=== PATIENT | male | born 1950 | race Caucasian/White ===

== ENCOUNTER 2016-11-01 17:13 | Observation (INO) | payer MEDICARE, OTHER ==
[~2016-11-01] VITALS: Ht 175.3 cm; Wt 97.5 kg
[~2016-11-01 17:13] MED LIST: CARV12.52 PO; CEPH500C3 PO; CYCL1PAK PO; DIGO0.25 PO; FOLI1 PO; FURO20TA PO; HYDR200T42 PO; HYOS0.1251 PO; KLOR20TA6 PO; LORA-474 PO; METH2.5 PO; OXYC5 PO; PROT40TA PO; WARF-20 PO; [UNRECOGNIZED DRUG - OTHER]
[2016-11-01 17:15] VITALS: BP 110/72; PULSE 110; RESP 16; TEMP 98.1; O2SAT 97
--- NOTE | 2016-11-01 17:40 | PD ---
HPI Chief Complaint: Cardiac Complaint Time Seen by Provider: 17:40 Travel History International Travel<30 days: No Contact w/Intl Traveler<30days: No Traveled to known affect area: No History of Present Illness HPI 66 YO M with PMH of CAD, CO, status post defibrillator placement and arthritis presents to the ED for evaluation after his AICD fired multiple times over the last 3 days. The patient denies any episodes of tachycardia, palpitations, shortness of breath, dyspnea on exertion, dizziness, nausea, vomiting, weakness. He states that he's been having a flare of his arthritis but is otherwise been feeling normal. He is followed by Dr. Dukes, cardiology. Dr. Arreaga, PCP [facility] Past Medical History Arthritis: Yes Asthma: No Blood Disorders: No Anxiety: No Depression: No Heart Rhythm Problems: Yes Cancer: No Cardiovascular Problems: Yes (CAD) High Cholesterol: No Chemotherapy: No Chest Pain: Yes Congestive Heart Failure: Yes COPD: Yes Diabetes: No Diminished Hearing: No Endocrine: No Gastrointestinal Disorders: Yes (GASTRISTIS, GERD) GERD: Yes Glaucoma: No Genitourinary: No Hepatitis: Yes (VIRAL) Hiatal Hernia: Yes Hypertension: Yes Immune Disorder: No Implanted Vascular Access Dvce: Yes Musculoskeletal: Yes Neurologic: No Psychiatric: No Reproductive: No Respiratory: Yes Integumentary: No Immunizations Current: Yes Myocardial Infarction: Yes (1998) Radiation Therapy: No Sleep Apnea: No Thyroid Disease: No Ulcer: Yes Past Surgical History Abdominal Surgery: No AICD: Yes (GUIDANT) Arteriovenous Shunt: No Body Medical Devices: STENT Cardiac Surgery: Yes (PACER ([employer] [id number]) , 2 STENTS) Ear Surgery: No Endocrine Surgery: No Eye Surgery: No Genitourinary Surgery: No Gynecologic Surgery: No Insulin Pump: No Joint Replacement: Yes (R HIP) Oral Surgery: No Pacemaker: Yes Thoracic Surgery: No Tonsillectomy: Yes Other Surgery: Yes (MULTI MUSCULOSKELETAL SURGERIES) Social History Alcohol Use: Yes (OCCASIONAL) Tobacco Use: No Substance Use: No Allergies-Medications (Allergen,Severity, Reaction): Coded Allergies: No Known Allergies (Verified , 11/01/16) Reported Meds & Prescriptions Reported Meds & Active Scripts Active Reported Voltaren (Diclofenac Sodium) 1 % Gel..gram. 1 Applic TOPICAL DAILY PRN Ativan (Lorazepam) 1 Mg Tab 1 Mg PO HS PRN Flexeril (Cyclobenzaprine HCl) 10 Mg Tab 10 Mg PO TID Oxycodone (Oxycodone HCl) 30 Mg Tab 30 Mg PO Q4HR PRN Toprol XL (Metoprolol Succinate) 50 Mg Tab 50 Mg PO DAILY Cymbalta DR (Duloxetine HCl) 60 Mg Capdr 60 Mg PO DAILY Lasix (Furosemide) 80 Mg Tab 80 Mg PO DAILY PRN Jantoven (Warfarin) 4 Mg Tab 4 Mg PO SUTUTHSA Take 1 tablet (4mg) daily on Monday,Monday, and Monday Jantoven (Warfarin) 2 Mg Tab 2 Mg PO MOWEFR Take 1 tablet (2mg) daily on Monday,Monday and Monday Losartan (Losartan Potassium) 25 Mg Tab 25 Mg PO DAILY Sulfasalazine 500 Mg Tab 500 Mg PO Q8H Zantac (Ranitidine HCl) 150 Mg Tab 150 Mg PO BID Plaquenil (Hydroxychloroquine Sulfate) 200 Mg Tab 200 Mg PO BID Take with food Prednisone 10 Mg Tab 10 Mg PO BID Prevacid (Lansoprazole) 30 Mg Capdr 30 Mg PO DAILY Methotrexate 2.5 Mg Tab 25 Mg PO WEEKLY Klor-Con M20 (Potassium Chloride Microencaps) 20 Meq Tab 20 Meq PO DAILY Folic Acid 1 Mg Tablet 1 Mg PO SUMOWE Take 1 tablet (1mg) daily on Monday,Monday,Monday,,Monday and Monday Lanoxin (Digoxin) 125 Mcg Tablet 125 Mcg PO DAILY Aspirin Adult Low Strength (Aspirin) 81 Mg Tabdr 81 Mg PO DAILY Review of Systems Except as stated in HPI: all other systems reviewed are Neg Physical Exam Narrative GENERAL: Well-nourished, well-developed white male in no acute distress. SKIN: Focused skin assessment warm/dry. HEAD: Normocephalic. EYES: No scleral icterus. No injection or drainage. NECK: Supple, trachea midline. No JVD or lymphadenopathy. CARDIOVASCULAR: Regular rate and rhythm without murmurs, gallops, or rubs. RESPIRATORY: Breath sounds clear and equal bilaterally. No accessory muscle use. GASTROINTESTINAL: Abdomen soft, non-tender, nondistended. Active bowel sounds. RECTAL EXAM: No masses or tenderness, stool is brown. Guaiac negative MUSCULOSKELETAL: No cyanosis, or edema. BACK: Nontender without obvious deformity. No CVA tenderness. Data Data Last Documented VS Vital Signs Date Time Temp Pulse Resp B/P (MAP) Pulse Ox O2 Delivery O2 Flow Rate FiO2 11/01/16 17:15 98.1 110 16 110/72 (85) 97 Orders Orders Electrocardiogram (11/01/16 17:38) Basic Metabolic Panel (Bmp) (11/01/16 17:38) Ckmb (Isoenzyme) Profile (11/01/16 17:38) Complete Blood Count With Diff (11/01/16 17:38) Magnesium (Mg) (11/01/16 17:38) Prothrombin Time / Inr (Pt) (11/01/16 17:38) Act Partial Throm Time (Ptt) (11/01/16 17:38) Troponin I (11/01/16 17:38) Chest, Single Ap (11/01/16 17:38) Ecg Monitoring (11/01/16 17:38) Bilateral Bp Monitoring (11/01/16 17:38) Iv Access Insert/Monitor (11/01/16 17:38) Oximetry (11/01/16 17:38) Sodium Chloride 0.9% Flush (Ns Flush) (11/01/16 17:45) Oxycodone-Acetamin 5-325 Mg (Percocet (11/01/16 18:30) Hepatic Functional Panel (11/01/16 20:05) Type And Screen (11/01/16 20:05) Consult Cardiology (11/01/16 ) Labs Laboratory Tests Test 11/01/16 18:37 White Blood Count 4.6 TH/MM3 Red Blood Count 2.61 MIL/MM3 Hemoglobin 7.7 GM/DL Hematocrit 23.1 % Mean Corpuscular Volume 88.6 FL Mean Corpuscular Hemoglobin 29.7 PG Mean Corpuscular Hemoglobin Concent 33.5 % Red Cell Distribution Width 17.9 % Platelet Count 236 TH/MM3 Mean Platelet Volume 7.8 FL Neutrophils (%) (Auto) 53.1 % Lymphocytes (%) (Auto) 33.0 % Monocytes (%) (Auto) 9.6 % Eosinophils (%) (Auto) 3.2 % Basophils (%) (Auto) 1.1 % Neutrophils # (Auto) 2.5 TH/MM3 Lymphocytes # (Auto) 1.5 TH/MM3 Monocytes # (Auto) 0.4 TH/MM3 Eosinophils # (Auto) 0.2 TH/MM3 Basophils # (Auto) 0.1 TH/MM3 CBC Comment DIFF FINAL Differential Comment Prothrombin Time 9.6 SEC Prothromb Time International Ratio 0.9 RATIO Activated Partial Thromboplast Time 24.3 SEC Blood Urea Nitrogen 29 MG/DL Creatinine 1.65 MG/DL Random Glucose 72 MG/DL Calcium Level 8.3 MG/DL Magnesium Level 1.9 MG/DL Sodium Level 143 MEQ/L Potassium Level 3.8 MEQ/L Chloride Level 112 MEQ/L Carbon Dioxide Level 23.3 MEQ/L Anion Gap 8 MEQ/L Estimat Glomerular Filtration Rate 42 ML/MIN Total Bilirubin 0.2 MG/DL Direct Bilirubin LESS THAN 0.1 MG/DL Indirect Bilirubin 0.1 MG/DL Aspartate Amino Transf (AST/SGOT) 43 U/L Alanine Aminotransferase (ALT/SGPT) 37 U/L Alkaline Phosphatase 183 U/L Total Creatine Kinase 88 U/L Troponin I 0.02 NG/ML Total Protein 5.6 GM/DL Albumin 1.9 GM/DL MDM Medical Decision Making Medical Screen Exam Complete: Yes Emergency Medical Condition: Yes Differential Diagnosis arrhythmia versus administrative medical director malfunction versus ACS versus other Narrative Course 66 YO M with PMH of CAD, CO, CHF, s/p defibrillator placement and arthritis ( patient is manager intermediate methotrexate user) presents to the ED for evaluation after his AICD fired multiple times over the last 3 days. The patient denies any episodes of tachycardia, palpitations, shortness of breath, dyspnea on exertion , dizziness, nausea, vomiting, weakness. He states that he's been having a flare of his arthritis but is otherwise been feeling normal. He is followed by Dr. Dukes, cardiology. Dr. Arreaga, PCP. Vitals reviewed. Physical exam is unremarkable. The device was interrogated by the [email or web address] rep. It a ppears the patient has had multiple episodes of V. fib with appropriate shocks. EKG rate 96, paced rhythm. No acute ST changes. Reviewed by Dr. Schuler. No evidence of cardiopulmonary disease on chest x-ray. Cardiac enzymes negative 1. Patient was found to be anemic with hemoglobin 7.7. Guaiac negative on rectal exam. Evidence of kidney injury with creatinine of 1.65. INR is subtherapeutic at 0.9. I spoke with the buckle and button maker on-call for Dr. Dukes. Dr. Dukes will see the patient tomorrow. I spoke with Dr. Card who agrees to accept the patient to the medicine service. Please see their notes for disposition. [facility] Point of Care Internal Pos. & Neg. Controls: Passed Fecal Specimen Occult Blood: Negative Mariann Armstrong Nov 01, 2016 17:40
[2016-11-01] MEDS ORDERED: SODIUM CHLORIDE 0.9% FLUSH 10 ML FLUSH IVF PRN (17:45)
--- NOTE | 2016-11-01 18:05 | RADRPT ---
EXAM DATE/TIME: 11/01/2016 17:52 [place] COMPARISON: No previous studies available for comparison. INDICATIONS : Chest pain. MEDICAL HISTORY : None. SURGICAL HISTORY : Pacemaker. ENCOUNTER: Initial ACUITY: 1 day PAIN SCORE: 0/10 LOCATION: Bilateral chest FINDINGS: No infiltrate, effusion or pneumothorax demonstrated. Heart size upper limits of normal. Left subclav jesús transvenous cardiac pacer/defibrillator noted. There are old right rib fractures. CONCLUSION: No evidence of acute cardiopulmonary disease. Reuben Childers MD on November 01, 2016 at 18:03 Board Certified Radiologist. This report was verified electronically.
[2016-11-01] MEDS ORDERED: LORA-474 PO (18:28)
[2016-11-01] MEDS ORDERED: VOLT1GEL4 TOPICAL (18:28)
[2016-11-01] MEDS ORDERED: POTA-245 PO (18:28)
[2016-11-01] MEDS ORDERED: SULF500T3 PO (18:28)
[2016-11-01] MEDS ORDERED: METH2.5T PO (18:28)
[2016-11-01] MEDS ORDERED: ASPI1TAB91 PO (18:28)
[2016-11-01] MEDS ORDERED: LOSA25TA PO (18:28)
[2016-11-01] MEDS ORDERED: LANO0.12 PO (18:28)
[2016-11-01] MEDS ORDERED: FOLI1TAB6 PO (18:28)
[2016-11-01] MEDS ORDERED: CYCL1TAB29 PO (18:28)
[2016-11-01] MEDS ORDERED: JANT4TAB PO (18:28)
[2016-11-01] MEDS ORDERED: TOPR50TA PO (18:28)
[2016-11-01] MEDS ORDERED: PLAQ200T PO (18:28)
[2016-11-01] MEDS ORDERED: ZANT150T2 PO (18:28)
[2016-11-01] MEDS ORDERED: CYMB60CA PO (18:28)
[2016-11-01] MEDS ORDERED: PREV30CA11 PO (18:28)
[2016-11-01] MEDS ORDERED: PRED10 PO (18:28)
[2016-11-01] MEDS ORDERED: FURO1TAB61 PO (18:28)
[2016-11-01] MEDS ORDERED: JANT2TAB PO (18:28)
[2016-11-01] MEDS ORDERED: OXYC30TA PO (18:28)
[2016-11-01] MEDS ORDERED: oxyCODONE/ACETAMINOPHEN 5 MG/325 MG TAB PO ONE (18:30)
[2016-11-01 19:18] LABS: AUTOMATED NEUTROPHIL # 2.5 TH/MM3 (1.8-7.7); BASOPHIL # 0.1 TH/MM3 (0-0.2); BASOPHIL % 1.1 % (0.0-2.0); EOSINOPHIL # 0.2 TH/MM3 (0-0.4); EOSINOPHIL % 3.2 % (0.0-4.0); HEMATOCRIT 23.1 % (39.0-51.0); HEMO FLAGS DIFF FINAL; LYMPHOCYTE # 1.5 TH/MM3 (1.0-4.8); MEAN CELL VOLUME 88.6 FL (80.0-100.0); MEAN CORPUSCULAR HEMOGLOBIN 29.7 PG (27.0-34.0); MEAN CORPUSCULAR HGB CONC 33.5 % (32.0-36.0); MONO % 9.6 % (0.0-8.0); NEUT % 53.1 % (16.0-70.0); PLATELET COUNT 236 TH/MM3 (150-450); RED BLOOD COUNT 2.61 MIL/MM3 (4.50-5.90); RED CELL DISTRIBUTION WIDTH 17.9 % (11.6-17.2); WHITE BLOOD COUNT 4.6 TH/MM3 (4.0-11.0)
[2016-11-01 19:24] LABS: APTT (PATIENT) 24.3 SEC (24.3-30.1); INTERNATIONAL NORMALIZED RATIO 0.9 RATIO; PROTHROMBIN TIME - PATIENT 9.6 SEC (9.8-11.6)
[2016-11-01 19:34] LABS: BICARBONATE 23.3 MEQ/L (21.0-32.0); MAGNESIUM 1.9 MG/DL (1.5-2.5); POTASSIUM 3.8 MEQ/L (3.5-5.1)
[2016-11-01 21:34] VITALS: BP 133/69; PULSE 70; O2SAT 98
[2016-11-01] MEDS ORDERED: SODIUM CHLOR 0.9% 1000 ML INJ 1,000 ML IV SCH (21:55)
[2016-11-01] MEDS ORDERED: ONDANSETRON HCL 4 MG/2 ML VIAL IVP PRN (22:00)
[2016-11-01] MEDS ORDERED: BISACODYL 10 MG SUPP RECTAL PRN (22:00)
[2016-11-01] MEDS ORDERED: NALOXONE HCL 0.4 MG/ML AMP IV PRN ×2 (22:00→22:45)
[2016-11-01] MEDS ORDERED: HEPARIN SODIUM - SQ 10,000 UNITS/ML VIAL SQ SCH (22:00)
[2016-11-01] MEDS ORDERED: MAGNESIUM HYDROXIDE SUSP 30 ML CUP PO PRN (22:00)
[2016-11-01] MEDS ORDERED: SENNOSIDES 8.6 MG TAB PO PRN (22:00)
[2016-11-01] MEDS ORDERED: LACTULOSE SYRUP 20 GM/30 ML CUP PO PRN (22:00)
[2016-11-01] MEDS ORDERED: SODIUM CHLORIDE 0.9% FLUSH 10 ML FLUSH IV FLUSH PRN ×2 (22:00→22:45)
[2016-11-01] MEDS ORDERED: ACETAMINOPHEN 325 MG TAB PO PRN ×2 (22:00)
[2016-11-01 22:11] VITALS: O2SAT 98
[2016-11-01 22:30] VITALS: BP 144/77; PULSE 74; O2SAT 98
[2016-11-01 22:38] LABS: ALT (GPT) 37 U/L (12-78); AST (GOT) 43 U/L (15-37)
[2016-11-01 22:40] LABS: ALKALINE PHOSPHATASE 183 U/L (45-117); INDIRECT BILIRUBIN 0.1 MG/DL (0.0-0.8); TOTAL BILIRUBIN ADULT 0.2 MG/DL (0.2-1.0)
[2016-11-02] VITALS (14 sets, daily range): BP systolic 99–128; BP diastolic 57–78; PULSE 58–92; RESP 16–20; TEMP 97.5–98.6; O2SAT 90–98
[2016-11-02] MEDS ORDERED: HYDROXYCHLOROQUINE SULFATE 200 MG TAB PO ONE (00:30)
[2016-11-02] MEDS ORDERED: predniSONE 10 MG TAB PO ONE (00:30)
[2016-11-02] MEDS ORDERED: LORazepam 1 MG TAB PO PRN (00:30)
[2016-11-02] MEDS ORDERED: CYCLOBENZAPRINE HCL 10 MG TAB PO ONE (00:30)
--- NOTE | 2016-11-02 01:28 | HHI.HP ---
HPI Service [facility] Primary Care Physician Serg Arreaga M.D. Admission Diagnosis anemia, CINTHIA, appropriate firing of AICD 2/2 V Fib Diagnoses: Chief Complaint: AICD firing Travel History International Travel<30 Days: No Contact w/Intl Traveler <30 Da: No Traveled to Known Affected Are: No History of Present Illness Written by HESHAM Shafer acting as scribe for [Kyaw] on 11/02/16 at 01: 18. 66 y/o male with a history of cardiac arrest, AICD/ pacemaker, CHF, HTN, Cardiac stents, Factor 5 Leiden deficiency, and RA presented to the ED after his AICD fired a total of 3 times. He states it fired prior to coming to the hospital and twice prior within the past 26 hours. He denies any chest pain, sob , or dizziness prior to to his AICD firing and/or after. AICD was interrogated in ED and multiple episodes of V Fib was shown. Evp Strategy: Dr. Dukes PCP: Dr. Arreaga in [place] Review of Systems Except as stated in HPI: all other systems reviewed are Neg Past Family Social History Past Medical History Cardiac arrest AICD CHF AFIB CT Factor 5 Leiden deficiency with 3 PEs at one time COPD Viral hepatitis 40 years ago Rheumatoid arthritis Past Surgical History AICD/Pacemaker Cardiac stents x 2 Bilateral shoulder repair Bilateral knee repair Hip replacement Reported Medications Reported Meds & Active Scripts Active Reported Voltaren (Diclofenac Sodium) 1 % Gel..gram. 1 Applic TOPICAL DAILY PRN Ativan (Lorazepam) 1 Mg Tab 1 Mg PO HS PRN Flexeril (Cyclobenzaprine HCl) 10 Mg Tab 10 Mg PO TID Oxycodone (Oxycodone HCl) 30 Mg Tab 30 Mg PO Q4HR PRN Toprol XL (Metoprolol Succinate) 50 Mg Tab 50 Mg PO DAILY Cymbalta DR (Duloxetine HCl) 60 Mg Capdr 60 Mg PO DAILY Lasix (Furosemide) 80 Mg Tab 80 Mg PO DAILY PRN Jantoven (Warfarin) 4 Mg Tab 4 Mg PO SUTUTHSA Take 1 tablet (4mg) daily on Monday,Monday, and Monday Jantoven (Warfarin) 2 Mg Tab 2 Mg PO WEFR Take 1 tablet (2mg) daily on Monday,Monday and Monday Losartan (Losartan Potassium) 25 Mg Tab 25 Mg PO DAILY Sulfasalazine 500 Mg Tab 500 Mg PO Q8H Zantac (Ranitidine HCl) 150 Mg Tab 150 Mg PO BID Plaquenil (Hydroxychloroquine Sulfate) 200 Mg Tab 200 Mg PO BID Take with food Prednisone 10 Mg Tab 10 Mg PO BID Prevacid (Lansoprazole) 30 Mg Capdr 30 Mg PO DAILY Methotrexate 2.5 Mg Tab 25 Mg PO WEEKLY Klor-Con M20 (Potassium Chloride Microencaps) 20 Meq Tab 20 Meq PO DAILY Folic Acid 1 Mg Tablet 1 Mg PO SUMOFRSA Take 1 tablet (1mg) daily on Monday,Monday,Monday,,Monday and Monday Lanoxin (Digoxin) 125 Mcg Tablet 125 Mcg PO DAILY Aspirin Adult Low Strength (Aspirin) 81 Mg Tabdr 81 Mg PO DAILY Allergies: Coded Allergies: No Known Allergies (Verified , 11/01/16) Active Ordered Medications Current Medications Medications (Trade) Dose Ordered Sig/[place] Route Start Time Stop Time Status Last Admin (NS Flush) 2 ml UNSCH PRN IV FLUSH 11/01/16 22:45 (NS Flush) 2 ml BID IV FLUSH 11/02/16 09:00 (Narcan Inj) 0.4 mg UNSCH PRN IV 11/01/16 22:45 (Flexeril) 10 mg TID PO 11/02/16 09:00 (Plaquenil) 200 mg BID PO 11/02/16 09:00 (Ativan) 1 mg HS PRN PO 11/02/16 00:30 11/02/16 00:59 (Deltasone) 10 mg BID PO 11/02/16 09:00 (Azulfidine) 500 mg Q8H PO 11/02/16 06:00 (Pepcid) 20 mg DAILY PO 11/02/16 09:00 (Roxicodone) 5 mg Q8H PRN PO 11/02/16 00:30 11/02/16 01:00 Family History Dad: Heart disease in his 80s Mom: CVA in her 80s Social History Tobacco use: Occasionally Alcohol use: Socially Illicit drug use: Denies Physical Exam Vital Signs Vital Signs Date Time Temp Pulse Resp B/P (MAP) Pulse Ox O2 Delivery O2 Flow Rate FiO2 11/02/16 00:48 97.9 68 18 128/70 (89) 96 11/01/16 22:36 Room Air 11/01/16 22:30 74 144/77 (99) 98 Room Air 11/01/16 22:11 98 11/01/16 21:34 70 133/69 (90) 98 Room Air 11/01/16 17:15 98.1 110 16 110/72 (85) 97 Physical Exam GENERAL: This is a well-nourished, well-developed patient, in no apparent distress. SKIN: No rashes, ecchymoses or lesions. Cool and dry. HEAD: Atraumatic. Normocephalic. EYES: Pupils equal round and reactive. ENT: Nose without bleeding, purulent drainage or septal hematoma. Airway patent. NECK: Trachea midline. No JVD or lymphadenopathy CARDIOVASCULAR: Regular rate and paced rhythm without murmurs, gallops, or rubs. AICD in place. RESPIRATORY: Clear to auscultation. Breath sounds equal bilaterally. No wheezes , rales, or rhonchi. GASTROINTESTINAL: Abdomen soft, non-tender, nondistended. MUSCULOSKELETAL: Extremities without clubbing, cyanosis, or edema. No calf tenderness. NEUROLOGICAL: Awake and alert. Motor and sensory grossly within normal limits. Normal speech. Laboratory Laboratory Tests Test 11/01/16 18:37 White Blood Count 4.6 Red Blood Count 2.61 Hemoglobin 7.7 Hematocrit 23.1 Mean Corpuscular Volume 88.6 Mean Corpuscular Hemoglobin 29.7 Mean Corpuscular Hemoglobin Concent 33.5 Red Cell Distribution Width 17.9 Platelet Count 236 Mean Platelet Volume 7.8 Neutrophils (%) (Auto) 53.1 Lymphocytes (%) (Auto) 33.0 Monocytes (%) (Auto) 9.6 Eosinophils (%) (Auto) 3.2 Basophils (%) (Auto) 1.1 Neutrophils # (Auto) 2.5 Lymphocytes # (Auto) 1.5 Monocytes # (Auto) 0.4 Eosinophils # (Auto) 0.2 Basophils # (Auto) 0.1 CBC Comment DIFF FINAL Differential Comment Prothrombin Time 9.6 Prothromb Time International Ratio 0.9 Activated Partial Thromboplast Time 24.3 Blood Urea Nitrogen 29 Creatinine 1.65 Random Glucose 72 Calcium Level 8.3 Magnesium Level 1.9 Sodium Level 143 Potassium Level 3.8 Chloride Level 112 Carbon Dioxide Level 23.3 Anion Gap 8 Estimat Glomerular Filtration Rate 42 Total Bilirubin 0.2 Direct Bilirubin LESS THAN 0.1 Indirect Bilirubin 0.1 Aspartate Amino Transf (AST/SGOT) 43 Alanine Aminotransferase (ALT/SGPT) 37 Alkaline Phosphatase 183 Total Creatine Kinase 88 Troponin I 0.02 Total Protein 5.6 Albumin 1.9 Result Diagram: 11/01/16183611/01/161836 Imaging Last Impressions Chest X-Ray 11/01/16 1738 Signed Impressions: Service Date/Time: Tuesday, November 01, 2016 17:52 - CONCLUSION: No evidence of acute cardiopulmonary disease. MD Mehreen Russo VTE Risk Assessment Mehreen VTE Risk Assessment: Mod/High Risk (score >= 2) Caprini Risk Assessment Model Point Value = 1 Point Value = 2 Point Value = 3 Point Value = 5 Age 41-60 Minor surgery BMI > 25 kg/m2 Swollen legs Varicose veins or History of unexplained or recurrent spontaneous Oral contraceptives or hormone replacement Sepsis (< 1 month) Serious lung disease, including pneumonia (< 1 month) Abnormal pulmonary function Acute myocardial infarction Congestive heart failure (< 1 month) History of inflammatory bowel disease Medical patient at bed rest Age 61-74 Arthroscopic surgery Major open surgery (> 45 min) Laparoscopic surgery (> 45 min) Malignancy Confined to bed (> 72 hours) Immobilizing plaster cast Central venous access Age >= 75 History of VTE Family history of VTE Factor V Leiden Prothrombin [id number] Lupus anticoagulant Anticardiolipin antibodies Elevated serum homocysteine Heparin-induced thrombocytopenia Other congenital or acquired thrombophilia Stroke (< 1 month) Elective arthroplasty Hip, pelvis, or leg fracture Acute spinal cord injury (< 1 month) Prophylaxis Regimen Total Risk Factor Score Risk Level Prophylaxis Regimen 0-1 Low Early ambulation 2 Moderate Order ONE of the following: *Sequential Compression Device (SCD) *Heparin 5000 units SQ BID 3-4 Higher Order ONE of the following medications: *Heparin 5000 units SQ TID *Enoxaparin/Lovenox 40 mg SQ daily (WT < 150 kg, CrCl > 30 mL/min) *Enoxaparin/Lovenox 30 mg SQ daily (WT < 150 kg, CrCl > 10-29 mL/min) *Enoxaparin/Lovenox 30 mg SQ BID (WT < 150 kg, CrCl > 30 mL/min) AND/OR *Sequential Compression Device (SCD) 5 or more Highest Order ONE of the following medications: *Heparin 5000 units SQ TID (Preferred with Epidurals) *Enoxaparin/Lovenox 40 mg SQ daily (WT < 150 kg, CrCl > 30 mL/min) *Enoxaparin/Lovenox 30 mg SQ daily (WT < 150 kg, CrCl > 10-29 mL/min) *Enoxaparin/Lovenox 30 mg SQ BID (WT < 150 kg, CrCl > 30 mL/min) AND *Sequential Compression Device (SCD) Assessment and Plan Problem List: (1) AICD discharge ICD Code: Z45.02 - Encounter for adjustment and management of automatic implantable cardiac defibrillator Status: Acute (2) Subtherapeutic anticoagulation ICD Code: Z51.81 - Encounter for therapeutic drug level monitoring; Z79.01 - terminologist (current) use of anticoagulants Status: Acute (3) CINTHIA (acute kidney injury) ICD Code: N17.9 - Acute kidney failure, unspecified Status: Acute (4) Anemia ICD Code: D64.9 - Anemia, unspecified Status: Chronic Assessment and Plan 66 y/o male with a history of cardiac arrest, AICD/ pacemaker, CHF, HTN, Cardiac stents, Factor 5 Leiden deficiency, and RA presented to the ED after his AICD fired a total of 3 times. AICD discharge, interrogated in ED found to have multiple episodes of V Fib EKG reviewed and shows a paced rhythm -Consult cardiology, Dr. Dukes, for further recommendation and treatment plan -Monitor Tele -Resume home medications digoxin, and metoprolol Anemia, suspect chronic due to RA medications, Hgb 7.7, last recorded 10.4 in 2013, guaiac stool negative in ED -Ordered recent lab work from Dr. Arreaga in [facility] for baseline labs -Trend H&H, will transfuse if needed -Iron panel and B12 ordered Acute kidney injury, creatine 1.6, unknown baseline, last recorded was .9 in 2013 -Trend creatine in AM -Hold IVF due to CHF history Subtherapeutic INR, INR .9 -Lovenox 90mg BID -Increase Coumadin to 5 mg Daily Rheumatoid arthritis, chronic: resume home medications prednisone, Plaquenil and sulfasalazine DVT prophylaxis: Lovenox This note was transcribed by zheng [Connie Thao]. I, Dr. Mohini Card personally performed the history, physical exam, and medical decision making; and confirmed the accuracy of the information in the transcribed note. Authenticated by Dr. Mohini Card on 11/02/16 at 01:18. Discussed Condition With Patient, ER HESHAM, nursing staff Connie Thao Nov 02, 2016 01:28 Mohini Card MD Nov 02, 2016 11:55
[2016-11-02] MEDS: FOLIC ACID 1 MG TAB PO SCH (03:29)
[2016-11-02] MEDS: ENOXAPARIN SODIUM 100 MG/ML SYRINGE SQ SCH ×2 (03:29→16:09)
[2016-11-02] MEDS: sulfaSALAzine 500 MG TAB PO SCH ×3 (06:08→21:20)
[2016-11-02] MEDS: ASPIRIN EC 81 MG TABEC PO SCH (08:50)
[2016-11-02] MEDS: DULoxetine HCl DR 60 MG CAP PO SCH (08:50)
[2016-11-02] MEDS: FAMOTIDINE 20 MG TAB PO SCH (08:50)
[2016-11-02] MEDS: HYDROXYCHLOROQUINE SULFATE 200 MG TAB PO SCH ×2 (08:50→20:30)
[2016-11-02] MEDS: CYCLOBENZAPRINE HCL 10 MG TAB PO SCH ×3 (08:50→18:53)
[2016-11-02] MEDS: predniSONE 10 MG TAB PO SCH ×2 (08:50→20:30)
[2016-11-02] MEDS: DIGOXIN 0.125 MG TAB PO SCH (08:51)
[2016-11-02] MEDS: METOPROLOL SUCCINATE 50 MG EXTENDED RELEASE TAB PO SCH (08:51)
[2016-11-02] MEDS ORDERED: SODIUM CHLORIDE 0.9% FLUSH 10 ML FLUSH IV FLUSH SCH (09:00)
[2016-11-02] MEDS: SODIUM CHLORIDE 0.9% FLUSH 10 ML FLUSH IV FLUSH SCH ×2 (09:45→20:30)
[2016-11-02] MEDS: LOSARTAN 25 MG TAB PO SCH (09:45)
--- NOTE | 2016-11-02 14:19 | HHI.PR ---
Subjective Remarks Follow-up for AICD discharge. Patient seen with RN and SO at bedside. The patient states he had AICD discharge yesterday at rest. He denies any chest pain or shortness of breath. He states that the plan is for cardiac catheterization tomorrow if anemia is improved. The patient feels well overnight and at this time and has no acute complaints. Objective Vitals Vital Signs Date Time Temp Pulse Resp B/P (MAP) Pulse Ox O2 Delivery O2 Flow Rate FiO2 11/02/16 13:22 98.0 78 16 119/78 (92) 97 11/02/16 07:34 97.7 63 16 117/65 (82) 95 11/02/16 07:26 93 21 11/02/16 04:25 97.5 66 20 111/62 (78) 96 11/02/16 01:53 20 11/02/16 00:49 72 11/02/16 00:48 97.9 68 18 128/70 (89) 96 11/01/16 22:36 Room Air 11/01/16 22:30 74 144/77 (99) 98 Room Air 11/01/16 22:11 98 11/01/16 21:34 70 133/69 (90) 98 Room Air 11/01/16 17:15 98.1 110 16 110/72 (85) 97 I/O 11/01/16 11/01/16 11/01/16 11/02/16 11/02/16 11/02/16 07:00 15:00 23:00 07:00 15:00 23:00 Intake Total 300 ml Output Total 450 ml Balance -150 ml Intake Oral 300 ml IV Total 0 ml Output Urine Total 450 ml Result Diagram: 11/01/167 11/01/161836 Imaging Last Impressions Chest X-Ray 11/01/16 1738 Signed Impressions: Service Date/Time: Tuesday, November 01, 2016 17:52 - CONCLUSION: No evidence of acute cardiopulmonary disease. Reuben Childers MD Objective Remarks GENERAL: Well-developed well-nourished. In no acute distress. SKIN: Warm and dry. No lesions noted. HEENT: Normocephalic. Pupils equal and round. Mucous membranes pink and moist. CARDIOVASCULAR: Regular rate and rhythm. No murmur appreciated. RESPIRATORY: No accessory muscle use. Clear to auscultation. Breath sounds equal bilaterally. GASTROINTESTINAL: Abdomen soft, non-tender, nondistended. Bowel sounds x4. MUSCULOSKELETAL: No obvious deformities. No clubbing or cyanosis. No edema. NEUROLOGICAL: Awake and alert. No focal neurological deficits. Moves upper and lower extremities spontaneously. Normal speech. PSYCHIATRIC: Appropriate mood and affect; insight and judgment normal. A/P Problem List: (1) AICD discharge ICD Code: Z45.02 - Encounter for adjustment and management of automatic implantable cardiac defibrillator Status: Acute (2) Subtherapeutic anticoagulation ICD Code: Z51.81 - Encounter for therapeutic drug level monitoring; Z79.01 - terminal system operator (current) use of anticoagulants Status: Acute (3) CINTHIA (acute kidney injury) ICD Code: N17.9 - Acute kidney failure, unspecified Status: Acute (4) Anemia ICD Code: D64.9 - Anemia, unspecified Status: Chronic Assessment and Plan 66 y/o male with a history of cardiac arrest, AICD/ pacemaker, CHF, HTN, Cardiac stents, Factor 5 Leiden deficiency, and RA presented to the ED after his AICD fired a total of 3 times. AICD discharge, interrogated in ED found to have multiple episodes of V Fib and defibrillated appropriately. EKG reviewed and shows ventricular paced rhythm -Consulted cardiology, Dr. Dukes, plans for cardiac catheterization if anemia is improved. -Monitor on Tele -Continue home digoxin and metoprolol Normocytic anemia: Possibly chronic due to RA medications. Hgb 7.7, previously 14.8 on 10/07/12. Stool negative for occult blood in the ED -Ordered recent lab work from Dr. Arreaga in [facility] for baseline labs -Repeat CBC. Trend H&H. will transfuse if needed -Iron panel and B12 ordered Acute kidney injury: Creatinine 1.65, previously 0.99 on 10/07/12. -Repeat BMP pending -Caution with IVF due to CHF history Subtherapeutic INR, INR .9 History of factor V Leyden deficiency -Lovenox 90mg BID -Coumadin increased to 5 mg Daily Rheumatoid arthritis, chronic: Continue home prednisone, Plaquenil, methotrexate , and sulfasalazine DVT prophylaxis: Lovenox/Coumadin Discharge Planning Follow-up cardiology recommendations. Gerhard Acosta Nov 02, 2016 14:19
[2016-11-02 15:32] LABS: ANION GAP 7 MEQ/L (5-15); BICARBONATE 23.4 MEQ/L (21.0-32.0); BLOOD UREA NITROGEN 22 MG/DL (7-18); CHLORIDE 110 MEQ/L (98-107); GLOMERULAR FILTRATION RATE 56 ML/MIN (>89); POTASSIUM 4.1 MEQ/L (3.5-5.1); SODIUM (NA) 140 MEQ/L (136-145)
[2016-11-02 15:58] LABS: DIGOXIN 0.5 NG/ML (0.8-2.0); FERRITIN 178 NG/ML (26-388); TRANSFERRIN IRON PROFILE 216 MG/DL (200-360)
[2016-11-02] MEDS ORDERED: WARFARIN SOD 5 MG TAB PO SCH (16:00)
[2016-11-02] MEDS: DOCUSATE SODIUM 50 MG/SENNA 8.6 MG TAB PO SCH ×2 (16:11→20:31)
--- NOTE | 2016-11-02 16:17 | MB ---
cc: TRENT TOMAS M.D. DATE OF CONSULTATION 11/02/2016 REASON FOR CONSULTATION Evaluation of three AICD shocks. HISTORY OF PRESENT ILLNESS Blake Munguia is a 56 year-old man who has been a patient of mine for years. He has a known ischemic heart disease. He had a myocardial infarction in 1998. He had a bare metal stent of the LAD in the year 1999. He has an ischemic cardiomyopathy and has a [employer] scientific defibrillator. His last LAD stent was March 09, 2010. This was a drug-eluting stent dilated to 4 mm in diameter. His last cath was March 23, 2011. Ejection fraction of 25%. The LAD was patent with a 30% stenosis on the distal end of the stent. The other coronary vessels were normal. He has been managed medically. He had an AICD shock August 26 while watching TV. He was then stable until he had one shock on October 31 and two more shocks on the . These all were for ventricular fibrillation as detected on his interrogation report. The patient has not had any anginal symptoms. He suffers with severe chronic rheumatoid arthritis and has pain that is generalized, but has not noticed any change in his condition. The other huge finding was that he is extremely anemic which is also new for him. PAST MEDICAL HISTORY Includes: 1. Defibrillator 2. Rheumatoid arthritis 3. Coronary artery disease 4. Reflux esophagitis 5. Factor V Leiden deficiency 6. Hiatal hernia 7. Hypertension 8. Ischemic cardiomyopathy 9. Pulmonary embolism 2005 PAST SURGICAL HISTORY Includes: 1. Bilateral knee surgery 2. Bilateral shoulder surgery 3. Right hip replacement 4. His coronary procedures 5. Right rotator cuff repair MEDICATIONS Include: 1. Aspirin 81 mg 2. Carvedilol 3.125 b.i.d. 3. Flexeril 4. Cymbalta 5. Digoxin 0.125 6. Folic acid 7. Furosemide 80 mg b.i.d. 8. Jantoven which is Warfarin 9. Potassium 20 once a day or b.i.d. if he takes extra diuretic. 10. Losartan 25 mg 11. Methotrexate 12. Oxycodone 13. Plaquenil 14. Prednisone 15. Ranitidine 16. Sulfasalazine 17. Xeljanz ALLERGIES Include LISINOPRIL WHICH GIVES HIM A COUGH. FAMILY HISTORY Positive for bypass surgery in his father, CHF in the father, CVA in the mother, [place] in the father, pacemaker in a sister, thyroid disorder in the father. SOCIAL HISTORY He is a retired builder. He smoked up until age 60. REVIEW OF SYSTEMS Otherwise unremarkable. He has got severe arthritic pain. PHYSICAL EXAM This is a well-developed, well-nourished man in no acute distress. VITAL SIGNS: Charted. HEENT: Exam unremarkable. NECK: No JVD, no bruits. CHEST: Clear to auscultation with diminished breast sounds. CARDIAC: S1-S2, regular rate and rhythm. No murmurs or gallops. ABDOMEN: Soft and nontender. No masses or organomegaly. EXTREMITIES: No clubbing, cyanosis or edema. Pulses are intact. EKG shows sinus rhythm with T-wave synchronous ventricular pacing. LABORATORY DATA Notable for hematocrit of 23.1, creatinine of 1.65 on the . He has had one troponin level 0.02. Chest x-ray shows no acute disease. IMPRESSION This is a 66-year-old man with a known ischemic cardiomyopathy. He is at three episodes of ventricular fibrillation in the last 48 hours. He is also severely anemic. He does not have typical anginal symptoms, but he did not have typical anginal symptoms before his previous stent either. RECOMMENDATIONS I think he needs a cardiac catheterization to rule out ischemic etiology for the V-fib, however with a severe anemia, I think he needs to be transfused first. I was going to try to do the cath later today, but I think he should be transfused today. I will try to get the cath done either tomorrow morning or at the latest tomorrow afternoon. We will try to get in touch with his attending to get some blood ordered for him. Further therapy to be determined. MD HEIDY Kendrick/CYN /11:54 AM /4:01 PM
[2016-11-02 17:22] LABS: AUTOMATED NEUTROPHIL # 12.8 TH/MM3 (1.8-7.7); BASOPHIL # 0.1 TH/MM3 (0-0.2); BASOPHIL % 0.9 % (0.0-2.0); EOSINOPHIL % 0.2 % (0.0-4.0); HEMATOCRIT 40.3 % (39.0-51.0); LYMPH % 8.5 % (9.0-44.0); LYMPHOCYTE # 1.3 TH/MM3 (1.0-4.8); MEAN CELL VOLUME 106.4 FL (80.0-100.0); MEAN CORPUSCULAR HEMOGLOBIN 35.8 PG (27.0-34.0); MEAN CORPUSCULAR HGB CONC 33.7 % (32.0-36.0); MONO % 4.4 % (0.0-8.0); PLATELET COUNT 140 TH/MM3 (150-450); RED BLOOD COUNT 3.79 MIL/MM3 (4.50-5.90); RED CELL DISTRIBUTION WIDTH 15.2 % (11.6-17.2); WHITE BLOOD COUNT 14.9 TH/MM3 (4.0-11.0)
[2016-11-02 17:27] LABS: HEMO FLAGS AUTO DIFF
[2016-11-02 19:00] LABS: BANDS 1 % (0-6); MYELOCYTES 2 % (0-0); POLYS (SEG NEUTROPHILS) 84 % (16-70); WBC DIFF SAMPLE 100
[2016-11-02 19:01] LABS: OVALOCYTES 1+ (NORMAL); PLATELET ESTIMATE SMEAR LOW (NORMAL); PLATELET MORPHOLOGY NORMAL (NORMAL); SCAN/DIFF FINAL DIFF MANUAL
[2016-11-02 19:03] LABS: TOXIC GRANULATION 1+ (NORMAL)
[2016-11-02 19:34] LABS: HEMATOCRIT 42.5 % (39.0-51.0); REVIEW FLAG FINAL
--- NOTE | 2016-11-02 21:42 | EKG ---
Date Performed: 11/01/2016 Time Performed: 17:30:49 PTAGE: 66 years EKG: ELECTRONIC VENTRICULAR PACEMAKER ABNORMAL RHYTHM ECG NO PREVIOUS TRACING DOCTOR: Robert Small Interpretating Date/Time 11/02/2016 21:40:46
[2016-11-03] VITALS (13 sets, daily range): BP systolic 95–134; BP diastolic 51–86; PULSE 57–90; RESP 16–18; TEMP 97.4–98.4; O2SAT 94–99
[2016-11-03] MEDS: FOLIC ACID 1 MG TAB PO SCH (01:32)
[2016-11-03] MEDS: sulfaSALAzine 500 MG TAB PO SCH ×3 (05:02→22:20)
[2016-11-03 06:08] LABS: AUTOMATED NEUTROPHIL # 10.2 TH/MM3 (1.8-7.7); BASOPHIL % 0.1 % (0.0-2.0); EOSINOPHIL % 0.2 % (0.0-4.0); HEMATOCRIT 38.9 % (39.0-51.0); HEMO FLAGS DIFF FINAL; LYMPH % 10.6 % (9.0-44.0); LYMPHOCYTE # 1.3 TH/MM3 (1.0-4.8); MEAN CELL VOLUME 106.9 FL (80.0-100.0); MEAN CORPUSCULAR HEMOGLOBIN 35.6 PG (27.0-34.0); MEAN CORPUSCULAR HGB CONC 33.3 % (32.0-36.0); MONO % 5.7 % (0.0-8.0); NEUT % 83.4 % (16.0-70.0); PLATELET COUNT 128 TH/MM3 (150-450); RED BLOOD COUNT 3.64 MIL/MM3 (4.50-5.90); RED CELL DISTRIBUTION WIDTH 15.4 % (11.6-17.2); WHITE BLOOD COUNT 12.2 TH/MM3 (4.0-11.0)
[2016-11-03 06:45] LABS: BICARBONATE 24.3 MEQ/L (21.0-32.0)
[2016-11-03] MEDS: SODIUM CHLOR 0.9% 1000 ML INJ 1,000 ML IV SCH (08:02)
[2016-11-03] MEDS ORDERED: diphenhydrAMINE HCL 50 MG CAP PO SCH (08:15)
[2016-11-03] MEDS ORDERED: DIAZEPAM 5 MG TAB PO SCH (08:15)
--- NOTE | 2016-11-03 08:27 | HHI.PR ---
Subjective Remarks Follow-up for AICD discharge. The patient felt like he had for "little shocks" overnight. He denies any symptoms prior to feeling the shocks. He denies any chest pain or shortness of breath. Telemetry monitoring did not bead picker any significant arrhythmias overnight. Going for cardiac catheterization today. Objective Vitals Vital Signs Date Time Temp Pulse Resp B/P (MAP) Pulse Ox O2 Delivery O2 Flow Rate FiO2 11/03/16 07:48 98.1 57 16 115/58 (77) 96 11/03/16 04:34 97.7 58 18 106/56 (73) 95 11/03/16 02:35 14 11/03/16 01:19 97.4 60 18 95/51 (66) 94 11/02/16 22:25 58 11/02/16 20:25 98.6 65 18 101/57 (72) 95 11/02/16 19:36 97 21 11/02/16 18:51 62 105/62 (76) 11/02/16 16:59 97.6 60 16 99/58 (72) 98 11/02/16 13:22 98.0 78 16 119/78 (92) 97 11/02/16 12:00 67 I/O 11/02/16 11/02/16 11/02/16 11/03/16 11/03/16 11/03/16 07:00 15:00 23:00 07:00 15:00 23:00 Intake Total 300 ml Output Total 450 ml 350 ml Balance -150 ml -350 ml Intake Oral 300 ml IV Total 0 ml Output Urine Total 450 ml 350 ml # Voids 1 Result Diagram: 11/03/16 0553 11/03/16 0533 Imaging Last Impressions Chest X-Ray 11/01/16 3588 Signed Impressions: Service Date/Time: Tuesday, November 01, 2016 17:52 - CONCLUSION: No evidence of acute cardiopulmonary disease. Rebuen Childers MD Objective Remarks GENERAL: Well-developed well-nourished. In no acute distress. SKIN: Warm and dry. No lesions noted. HEENT: Normocephalic. Pupils equal and round. Mucous membranes pink and moist. CARDIOVASCULAR: Regular rate and rhythm. No murmur appreciated. RESPIRATORY: No accessory muscle use. Clear to auscultation. Breath sounds equal bilaterally. GASTROINTESTINAL: Abdomen soft, non-tender, nondistended. Bowel sounds x4. MUSCULOSKELETAL: No obvious deformities. No clubbing or cyanosis. Trace edema. NEUROLOGICAL: Awake and alert. No focal neurological deficits. Moves upper and lower extremities spontaneously. Normal speech. PSYCHIATRIC: Appropriate mood and affect; insight and judgment normal. A/P Problem List: (1) AICD discharge ICD Code: Z45.02 - Encounter for adjustment and management of automatic implantable cardiac defibrillator Status: Acute (2) Subtherapeutic anticoagulation ICD Code: Z51.81 - Encounter for therapeutic drug level monitoring; Z79.01 - termite control service representative (current) use of anticoagulants Status: Acute (3) CINTHIA (acute kidney injury) ICD Code: N17.9 - Acute kidney failure, unspecified Status: Resolved (4) Anemia ICD Code: D64.9 - Anemia, unspecified Status: Resolved Assessment and Plan 66 y/o male with a history of cardiac arrest, AICD/ pacemaker, CHF, HTN, Cardiac stents, Factor 5 Leiden deficiency, and RA presented to the ED after his AICD fired a total of 3 times. AICD discharge, interrogated in ED found to have multiple episodes of V Fib and defibrillated appropriately. EKG reviewed and showed ventricular paced rhythm. -Consulted cardiology, Dr. Dukes, planning for cardiac catheterization -Monitor on Tele -Continue home digoxin and metoprolol Anemia?: Hemoglobin initially 7.7, possible lab error as hemoglobin has been stable around 13 on 3 subsequent lab draws. Reviewed: Stool negative for occult blood in the ED. iron panel essentially within normal limits. B12 and folate within normal limits. -Currently stable. Monitor. Acute kidney injury: Creatinine 1.65, previously 0.99 on 10/07/12. -Repeat BMP pending -Caution with IVF due to CHF history Subtherapeutic INR, INR .9 History of factor V Leyden deficiency -Lovenox 90mg BID -Coumadin increased to 5 mg Daily -Monitor INR Rheumatoid arthritis, chronic: Continue home prednisone, Plaquenil, methotrexate , and sulfasalazine DVT prophylaxis: Lovenox/Coumadin Discharge Planning Follow-up cardiology recommendations. Gerhard Acosta Nov 03, 2016 08:27
[2016-11-03] MEDS: SODIUM CHLORIDE 0.9% FLUSH 10 ML FLUSH IV FLUSH SCH ×3 (08:33→21:00)
[2016-11-03] MEDS: DULoxetine HCl DR 60 MG CAP PO SCH (08:33)
[2016-11-03] MEDS: FAMOTIDINE 20 MG TAB PO SCH (08:33)
[2016-11-03] MEDS: predniSONE 10 MG TAB PO SCH ×2 (08:34→22:20)
[2016-11-03] MEDS: CYCLOBENZAPRINE HCL 10 MG TAB PO SCH ×3 (08:34→18:01)
[2016-11-03] MEDS: DOCUSATE SODIUM 50 MG/SENNA 8.6 MG TAB PO SCH ×2 (08:34→21:00)
[2016-11-03] MEDS: HYDROXYCHLOROQUINE SULFATE 200 MG TAB PO SCH ×2 (08:34→22:20)
[2016-11-03] MEDS: ASPIRIN EC 81 MG TABEC PO SCH (08:34)
[2016-11-03] MEDS ORDERED: HEPARIN-NS/PF INJ 1,000 ML ONE (08:40)
[2016-11-03] MEDS ORDERED: IOHEXOL 350 MG/ML 100 ML BTL (for Cath Lab) OTHER ONE (08:54)
[2016-11-03] MEDS ORDERED: NITROGLYCERIN INJ 5 ML ONE (09:05)
[2016-11-03] MEDS ORDERED: MORPHINE SULFATE 8 MG/ML INJ ONE (09:05)
[2016-11-03] MEDS ORDERED: MIDAZOLAM HCL 2 MG/2 ML VIAL ONE (09:05)
--- NOTE | 2016-11-03 09:41 | CATHPROC ---
[employer] HIS Report Study Information Study Number Admission Scheduled Start Study Start [id number] Nov 01 2016 9:09PM 11/03/2016 Nov 03 2016 8:47AM [place] [facility] Cardiac Catheterization Admit Source Facility Department Emergency department [facility] - Senior Telecommunications Technician Physician and Clinical Staff Initial Keith Sorensen Service Captain Natalia Carver,JOHN Recorder Bibi Oswald,RT(R) (BS) Scrub Aleena Quarles,RT(R) Procedures Performed Procedure Location (Site) Vessel Name Angiogram LV LV Ventricle Coronary Angiograms LCA Left Coronary Coronary Angiograms RCA Right Coronary L Heart Cath Equipment Time Software Engineering Specialist Description Size Mfg Part Number Used/Scraped TRANSDUCER, TRUWAVE [id number] 08:56 DEL VALLE MAYORGA * Used W/STOCKCOCK *[id number] *[id number] *[id number] PIGTAIL ANG. 145 INFINITI [id number] CATHETER *[id number] 09:28 DAIG/ST. LIANNE MEDICAL ANGIOSEAL, FR6 VIP FR 6 Used *[id number] 08:56 MEDLINE IND[employer]ES PACK, CCL CUSTOM * Used *[id number] 08:56 [employer] PACER PEN, SKIN DUAL W/ RULER * Used *[id number] 08:56 BringIt MEDICAL SHEATH, FR6.5 PRELUDE 11CM FR 6.5 038ACT Used *[id number] 08:56 [employer]K Mobile Apps WIRE, 3MMJ .035 180CM 180CM Used *[id number] 08:56 NAMIC MANIFOLD, 4 PORT * Used *[id number] 08:56 NYCOMED OMNIPAQUE, 350 MG, 100ML 100ML [id number] Used [id number] 08:56 Emergent Views MEDICAL BLANKET,WARM AIR CCL * Used *[id number] History: Current Medications Medication Dosage/Unit Route Frequency Last Date/Time Taken COZAAR Beta John LOVENOX ASA Coumadin History: Allergies Allergy Reaction No Known Allergies History: Risk Factors Family History of Hypertension Dyslipidemia Previous [place] Previous Heart Failure Premature CAD Yes No Yes Yes Yes Prior Valve Prior PCI Prior PCIDate Prior CABG Surgery No Yes 10/22/1999 No Cerebrovascular Peripheral Artery Chronic Lung On Dialysis Diabetes Disease Disease Disease No No No Yes No History: Stress Tests Stress or Imaging Studies Performed No History: Other Current Smoker Method Quit Packs a Day Years Used Pack Years No Cigarettes 6 Years Ago 1 40 40 Labs Hgb (g/dl) Hct (%) WBC (l/cumm) Platelets (thousands) 11.60-17.00 35.00-51.00 4.00-11.00 150.00-450.00 12.9 38.9 12.2 128 Glucose (mg/dl) BUN (mg/dl) Creatinine (mg/dl) BUN:Creatinine (1:x) 74.00-106.00 7.00-18.00 0.50-1.30 10.00-20.00 100 20 1.2 16.7 Na (meq/l) K (meq/l) 136.00-145.00 3.50-5.10 142 4 INR (PTT:PT) 0.90-1.10 0.9 Troponin I (ng/ml) CPK (u/l) CPK-MB (ng/ML) 0.02-0.05 26.00-308.00 0.50-3.60 0.04 88 Not Drawn Medication Medication Total Dose (Bolus/Oral) Medication Total Dosage/Unit 1% XYLOCAINE 20 mL MORPHINE 3 mg VERSED 1 mg Medications (Bolus/Oral) Medication Time Given Dosage/Unit Administered By Reason VERSED 11/03/2016 9:12:32 AM 1 mg Natalia Carver 1 mg VERSED given in lab by Natalia Carver RN in Right Antecubital via Peripheral IV. 1% XYLOCAINE 11/03/2016 9:12:43 AM 20 mL Nataila Carver 20 mL 1% XYLOCAINE given in lab by Natalia Carver RN in Left Groin via Subcutaneous. MORPHINE 11/03/2016 9:18:31 AM 3 mg Natalia Carver 3 mg MORPHINE given in lab by Natalia Carver RN in Right Antecubital via Peripheral IV. Medication (Drip) Medication Time Given Dosage/Unit Concentration/Unit Diluent (ml) Solution IV Solutions 11/03/2016 8:50:01 AM 0 mL (IV) 500 NaCl .9 IV Solutions given in lab by Natalia Carver RN in Right Antecubital via Peripheral IV. Pump/Drip Fl ow = 100 ml/hr using NaCl .9. Initial Case Assessment Cardiovascular HR Rhythm NIBP Chest Pain 63 irr 108/74 0 Edema Present Skin color Skin None Normal Warm Dry Circulatory - Right Pulses Dorsalis Pedis Femoral 3 3 Scale (0,1,2,3,4,d) Circulatory - Left Pulses Dorsalis Pedis Femoral 3 3 Scale (0,1,2,3,4,d) Circulatory - Lower Extremities Color Lower Right Color Lower Left Normal Normal Neurological State Oriented to time-place- Alert Moves all extremities person Respiration - General Respiration Rate SpO2 (%) (B/min) 13 99 Chronological Log Time Study Chronological Log 8:49:45 Patient arrived via Bed. 8:49:46 Patient Name, D.O.B, / Armband Verified By R.N. 8:49:47 Consent signed by the physician and the patient and verified by the Senior Telecommunications Technician staff. 8:49:48 Pre-op and post- op instructions given; patient acknowledges understanding of instructions. 8:49:48 Verbal Stimulation=2 Physical Stimulation=2 Airway=2 Respiration=2 TOTAL=8. (0=absent, 1=li mited, 2=present) 8:49:51 Presedation assessment performed by Senior Telecommunications Technician RN. 8:49:54 Patient has been NPO for More than 6Hrs. 8:49:55 Skin Breakdown none per pt 8:49:57 Patient Warmer Placed on the Table. 8:50:00 Andrey Prominences Protected 8:50:00 A # 20 IV was noted in the Antecubital (right). Grade = 0 IV Solutions given in lab by Natalia Carver, RN in Right Antecubital via Peripheral IV. Pump/D rip Flow = 100 ml/hr 8:50:01 using NaCl .9. 8:50:02 History and physical on the chart or being dictated. Assessment: Initial Case, HR=63 BPM, Rhythm=irr, SQLX=293/74 mmhg, Chest Pain=0, Edema=None, Col or=Normal, Skin = Warm, Dry Right Pulses: Luciano Ped=3, Femoral=3 Left Pulses: Luciano Ped=3, Femoral=3 8:50:03 Lower Right Extremities: Color=Normal Lower Left Extremities: Color=Normal Neurological: State=Alert, Ox3, SANCHEZ Respiration: Resp=13 B/min, SpO2=99 % Vitals capture started with the following parameters, Patient=Adult, Interval=5 min, Initial Pre jlafh=602 mmHg, 8:55:08 Deflation Rate=5 mmHg, Cuff placed on Right Arm 8:56:16 Reference ECG taken Vitals capture started with the following parameters, Patient=Adult, Interval=5 min, Initial Pre dmxaz=241 mmHg, 8:59:21 Deflation Rate=5 mmHg, Cuff placed on Right Arm 8:59:51 HR=61 bpm, PZDA=380/74 mmhg, SpO2=99.0 %, Resp=10 B/min, Pain=0, Ghassan=10, Davies=2 Bilateral groins prepped with 2% chlorhexidine, and with a 3 min. waiting time. 9:00:43 9:04:52 HR=64 bpm, DJON=094/75 mmhg, SpO2=98.0 %, Resp=10 B/min, Pain=0, Ghassan=10, Davies=2 9:06:34 Pressure channel 1 zeroed. 9:09:57 HR=66 bpm, IOMD=586/74 mmhg, SpO2=97.0 %, Resp=9 B/min, Pain=0, Ghassan=10, Davies=2 Time Out. Correct patient, correct procedure,correct physician, power injector loaded with contr ast with surgical team 9:10:11 present. Time Out Concurred by MD, individual staff pocedure 9:10:35 Case Start 9:12:32 1 mg VERSED given in lab by Natalia Carver, RN in Right Antecubital via Peripheral IV. 9:12:43 20 mL 1% XYLOCAINE given in lab by Natalia Carver, RN in Left Groin via Subcutaneous. 9:12:54 Access site was Left Femoral Artery. 9:13:07 A SHEATH, FR6.5 PRELUDE 11CM FR 6.5 was advanced into the Fem Art (left) using the Percutane ous technique. A PIGTAIL ANG. 145 INFINITI CATHETER FR 6 was advanced over a wire. OMNIPAQUE, 350 MG, 100ML 100 ML was 9:14:21 used for injections. 9:14:58 HR=61 bpm, MEXC=410/74 mmhg, OyY0=907.0 %, Resp=10 B/min, Pain=0, Ghassan=10, Davies=2 Recorded Pressure: LV, HR=62, Condition=Condition 1 9:15:30 (Left Ventricle) LV 119/1/9 9:16:59 The LV was injected at 10 cc/sec for a total of 25. OMNIPAQUE, 350 MG, 100ML 100ML used. Recorded Pressure: LV, Ao, HR=65, Condition=Condition 1 9:17:34 (Left Ventricle) LV 113/1/9, (Aorta) Ao 112/57/77 9:18:18 Catheter was removed A JL 5.0 INFINITI CATHETER FR 6 was advanced over a wire. OMNIPAQUE, 350 MG, 100ML 100ML was use d for 9:18:22 injections. 9:18:31 3 mg MORPHINE given in lab by Natalia Carver, JOHN in Right Antecubital via Peripheral IV. Recorded Pressure: Ao, HR=64, Condition=Condition 1 9:19:10 (Aorta) Ao 108/61/80 9:19:36 The LCA was injected and visualized at various angles. OMNIPAQUE, 350 MG, 100ML 100ML use d. 9:19:57 HR=62 bpm, DWPU=194/66 mmhg, SpO2=99.0 %, Resp=10 B/min, Pain=0, Ghassan=10, Davies=2 9:21:14 Catheter was removed A 3DRC INFINITI CATHETER FR 6 was advanced over a wire. OMNIPAQUE, 350 MG, 100ML 100ML was use d for 9:22:02 injections. 9:22:26 The RCA was injected and visualized at various angles. OMNIPAQUE, 350 MG, 100ML 100ML use d. 9:22:58 Catheter was removed 9:25:00 HR=63 bpm, ADXF=999/66 mmhg, SpO2=95.0 %, Resp=8 B/min, Pain=0, Ghassan=10, Davies=2 9:26:01 An injection in the Fem Art (left) was made through the SHEATH, FR6.5 PRELUDE 11CM FR 6.5. 9:27:57 ANGIOSEAL, FR6 VIP FR 6 placement in the Fem Art (left) 9:28:21 Case End 9:28:36 Catheter(s) removed without difficulty 9:28:43 No case complications noted. 9:28:45 Cine recording checked. 9:28:47 Bedside Report will be given. 9:28:48 Implantable Device card placed in patient's chart. 9:28:56 A Left Heart Cath was performed. 9:29:57 HR=66 bpm, IAIF=146/66 mmhg, Resp=10 B/min, Pain=0, Ghassan=10, Davies=2 9:30:20 DOCU called. Spoke to Aayush. 9:31:48 Sterile dressing applied to site 9:34:39 Vitals capture stopped. 9:36:25 Patient moved to stretcher End Study - Contrast Media Used In Study Contrast Total Opened (mL) Total Used (mL) Total Wasted (mL) Omnipaque 80 80 0 End Study - Maximum Contrast Load Max Contrast Load (mL) 371.2 End Study - Radiation Exposure Fluoro Time (minutes) 2.5 End Study - Patient Disposition Complications Transferred To Interventional Outcome No Senior Telecommunications Technician Holding No attempt made
[2016-11-03] MEDS ORDERED: ONDANSETRON HCL 4 MG/2 ML VIAL IV PUSH PRN (09:45)
[2016-11-03] MEDS ORDERED: SODIUM CHLORIDE 0.9% FLUSH 10 ML FLUSH IV FLUSH PRN (09:45)
[2016-11-03] MEDS ORDERED: MISC INFORMATION XX ONE (09:45)
[2016-11-03] MEDS ORDERED: BACITRACIN OINT 0.9 GM PKT TOP ONE (09:45)
[2016-11-03] MEDS ORDERED: SODIUM CHLOR 0.9% 1000 ML INJ 1,000 ML IV SCH ×2 (10:00→17:00)
--- NOTE | 2016-11-03 10:47 | MA ---
cc: TRENT TOMAS M.D. DATE 11/03/2016 PROCEDURE PERFORMED 1. Left heart catheterization 2. Left ventriculography 3. Coronary angiography 4. Left femoral angiography with Angio-Seal placement. BRIEF HISTORY Blake Munguia is a 66-year-old man with known coronary artery disease. He has had a previous extensive anteroapical infarct. He then had an LAD stent. This restenosed and he had it restented proximal to the previous stent. His last cath was a few years ago and everything was open. He has now had multiple episodes of the V-fib. The cath is being performed to rule out an ischemic etiology. DESCRIPTION OF PROCEDURE The patient was brought to the cardiac laborer heading in a fasting state. Using 1% lidocaine for local anesthesia, a 6.5-Anguillan sheath was inserted in the left femoral artery requiring only a single front wall stick. Left ventricular pressure was then recorded using a pigtail catheter followed by left ventriculography and then a pullback. Coronary angiography was then performed using a left five Naya for left coronary artery and a 3DRC for the right coronary. Angiography was then obtained of the femoral artery via the sheath followed by uncomplicated Angio-Seal placement. There were no complications. FINDINGS HEMODYNAMICS Left ventricular pressure is 113/1. End-diastolic pressure 9. Aortic pressure was 108/61 with a mean of 80. That 9 doesn't sound accurate by the way. LEFT VENTRICULOGRAPHY Ejection fraction of about 15% with anterolateral and apical dyskinesis from a previous extensive infarct. There was no mitral regurgitation. CORONARY ANGIOGRAPHY The left main coronary artery appears normal. The left anterior descending has a proximal and mid stent which appeared to overlap. There is about 20% narrowing perhaps in the mid LAD stent region, however, the rest the vessel is widely patent with no significant stenosis. The circumflex artery is dominant and appears normal. The right coronary artery is dominant and appears normal. CONCLUSIONS 1. Severely impaired LV function. 2. Widely patent LAD stents. No ischemic etiology found for his VF. PLAN We will add amiodarone to his regimen. MD HEIDY Kendrick/CYN /9:33 AM /10:27 AM
[2016-11-03] MEDS: AMIODARONE 200 MG TAB PO SCH ×2 (13:21→18:01)
[2016-11-03 22:08] LABS: INTERNATIONAL NORMALIZED RATIO 1.3 RATIO; PROTHROMBIN TIME - PATIENT 14.1 SEC (9.8-11.6)
[2016-11-04] VITALS (14 sets, daily range): BP systolic 106–137; BP diastolic 60–78; PULSE 53–66; RESP 16; TEMP 97.8–98.2; O2SAT 96–99
[2016-11-04] MEDS: FOLIC ACID 1 MG TAB PO SCH (02:15)
[2016-11-04] MEDS: sulfaSALAzine 500 MG TAB PO SCH (05:12)
[2016-11-04 07:47] LABS: INTERNATIONAL NORMALIZED RATIO 1.2 RATIO; PROTHROMBIN TIME - PATIENT 13.4 SEC (9.8-11.6)
[2016-11-04 07:59] LABS: BICARBONATE 21.8 MEQ/L (21.0-32.0); POTASSIUM 3.9 MEQ/L (3.5-5.1)
[2016-11-04 08:00] LABS: AUTOMATED NEUTROPHIL # 7.2 TH/MM3 (1.8-7.7); BASOPHIL % 0.1 % (0.0-2.0); EOSINOPHIL % 0.1 % (0.0-4.0); HEMATOCRIT 36.7 % (39.0-51.0); HEMO FLAGS DIFF FINAL; LYMPH % 10.4 % (9.0-44.0); LYMPHOCYTE # 0.9 TH/MM3 (1.0-4.8); MEAN CORPUSCULAR HEMOGLOBIN 36.2 PG (27.0-34.0); MEAN CORPUSCULAR HGB CONC 33.8 % (32.0-36.0); NEUT % 82.4 % (16.0-70.0); PLATELET COUNT 119 TH/MM3 (150-450); RED BLOOD COUNT 3.43 MIL/MM3 (4.50-5.90); WHITE BLOOD COUNT 8.7 TH/MM3 (4.0-11.0)
[2016-11-04] MEDS: SODIUM CHLOR 0.9% 1000 ML INJ 1,000 ML IV SCH (08:02)
[2016-11-04] MEDS: SODIUM CHLORIDE 0.9% FLUSH 10 ML FLUSH IV FLUSH SCH ×2 (09:00)
--- NOTE | 2016-11-04 09:21 | PD.CARD.PN ---
Subjective Subjective Remarks no complaints Objective Medications Current Medications Medications (Trade) Dose Ordered Sig/Weston Route Start Time Stop Time Status Last Admin (NS Flush) 2 ml UNSCH PRN IV FLUSH 11/01/16 22:45 (NS Flush) 2 ml BID IV FLUSH 11/02/16 09:00 11/03/16 08:33 (Narcan Inj) 0.4 mg UNSCH PRN IV 11/01/16 22:45 (Flexeril) 10 mg TID PO 11/02/16 09:00 11/03/16 18:01 (Plaquenil) 200 mg BID PO 11/02/16 09:00 11/03/16 22:20 (Ativan) 1 mg HS PRN PO 11/02/16 00:30 11/02/16 00:59 (Deltasone) 10 mg BID PO 11/02/16 09:00 11/03/16 22:20 (Azulfidine) 500 mg Q8H PO 11/02/16 06:00 11/04/16 05:12 (Pepcid) 20 mg DAILY PO 11/02/16 09:00 11/03/16 08:33 (Roxicodone) 5 mg Q8H PRN PO 11/02/16 00:30 11/03/16 22:33 (Ecotrin Ec) 81 mg DAILY PO 11/02/16 09:00 11/03/16 08:34 (Lanoxin) 0.125 mg DAILY PO 11/02/16 09:00 11/02/16 08:51 (Cymbalta Dr) 60 mg DAILY PO 11/02/16 09:00 11/03/16 08:33 (Folate) 1 mg SuMoWeThFrSa PO 11/02/16 02:15 11/03/16 01:32 (Cozaar) 25 mg DAILY PO 11/02/16 09:00 11/02/16 09:45 (Toprol Xl) 50 mg DAILY PO 11/02/16 09:00 11/02/16 08:51 (Prachi-Colace) 1 tab BID PO 11/02/16 16:00 11/02/16 20:31 Sodium Chloride 1,000 ml @ 30 mls/hr Q24H IV 11/03/16 08:02 11/08/16 08:01 (Benadryl) 50 mg LOG CUTTER PO 11/03/16 08:15 11/07/16 08:14 (Valium) 5 mg LOG CUTTER PO 11/03/16 08:15 11/07/16 08:14 (NS Flush) 2 ml BID IV FLUSH 11/03/16 21:00 (NS Flush) 2 ml UNSCH PRN IV FLUSH 11/03/16 09:45 (Zofran Inj) 4 mg Q4H PRN IV PUSH 11/03/16 09:45 (Cordarone) 400 mg TIDPC PO 11/03/16 13:30 11/03/16 18:01 Vital Signs / I&O Vital Signs Date Time Temp Pulse Resp B/P (MAP) Pulse Ox O2 Delivery O2 Flow Rate FiO2 11/04/16 06:00 60 11/04/16 05:00 65 11/04/16 04:00 58 11/04/16 03:00 98.1 64 16 106/60 (75) 96 11/04/16 03:00 62 11/04/16 02:00 56 11/04/16 01:00 62 11/04/16 00:00 66 11/03/16 23:00 98.4 70 18 133/76 (95) 97 11/03/16 23:00 88 11/03/16 22:00 90 11/03/16 21:00 66 11/03/16 20:00 98.1 73 18 127/83 (98) 98 11/03/16 20:00 74 11/03/16 19:00 90 11/03/16 19:00 97.7 80 18 120/86 (97) 96 11/03/16 18:20 68 11/03/16 17:23 76 11/03/16 16:55 87 11/03/16 09:55 98 Room Air I/O 11/03/16 11/03/16 11/03/16 11/04/16 11/04/16 11/04/16 07:00 15:00 23:00 07:00 15:00 23:00 Intake Total 240 ml 720 ml Output Total 350 ml 900 ml Balance -350 ml 240 ml -180 ml Intake Oral 240 ml 720 ml Output Urine Total 350 ml 900 ml Physical Exam Alert Chest clear CV S1S2 RRR ext no edema. Left groin OK Laboratory Laboratory Tests Test 11/03/16 21:07 11/04/16 05:25 Prothrombin Time 14.1 SEC 13.4 SEC Prothromb Time International Ratio 1.3 RATIO 1.2 RATIO White Blood Count 8.7 TH/MM3 Red Blood Count 3.43 MIL/MM3 Hemoglobin 12.4 GM/DL Hematocrit 36.7 % Mean Corpuscular Volume 107.0 FL Mean Corpuscular Hemoglobin 36.2 PG Mean Corpuscular Hemoglobin Concent 33.8 % Red Cell Distribution Width 15.0 % Platelet Count 119 TH/MM3 Mean Platelet Volume 9.7 FL Neutrophils (%) (Auto) 82.4 % Lymphocytes (%) (Auto) 10.4 % Monocytes (%) (Auto) 7.0 % Eosinophils (%) (Auto) 0.1 % Basophils (%) (Auto) 0.1 % Neutrophils # (Auto) 7.2 TH/MM3 Lymphocytes # (Auto) 0.9 TH/MM3 Monocytes # (Auto) 0.6 TH/MM3 Eosinophils # (Auto) 0.0 TH/MM3 Basophils # (Auto) 0.0 TH/MM3 CBC Comment DIFF FINAL Differential Comment Blood Urea Nitrogen 21 MG/DL Creatinine 1.13 MG/DL Random Glucose 109 MG/DL Calcium Level 8.1 MG/DL Sodium Level 142 MEQ/L Potassium Level 3.9 MEQ/L Chloride Level 112 MEQ/L Carbon Dioxide Level 21.8 MEQ/L Anion Gap 8 MEQ/L Estimat Glomerular Filtration Rate 65 ML/MIN Assessment and Plan Problem List: (1) Ventricular fibrillation ICD Codes: I49.01 - Ventricular fibrillation (2) Ischemic cardiomyopathy ICD Codes: I25.5 - Ischemic cardiomyopathy (3) Old anterior wall myocardial infarction ICD Codes: I25.2 - Old myocardial infarction (4) Coronary artery disease ICD Codes: I25.10 - Atherosclerotic heart disease of kake coronary artery without angina pectoris Assessment and Plan Continue his prior meds on admit. Add amiodarone 400mg bid x 10 days, then 200mg daily. Keith Dukes MD Nov 04, 2016 09:21
[2016-11-04] MEDS: HYDROXYCHLOROQUINE SULFATE 200 MG TAB PO SCH (09:26)
[2016-11-04] MEDS: LOSARTAN 25 MG TAB PO SCH (09:27)
[2016-11-04] MEDS: METOPROLOL SUCCINATE 50 MG EXTENDED RELEASE TAB PO SCH (09:27)
[2016-11-04] MEDS: predniSONE 10 MG TAB PO SCH (09:27)
[2016-11-04] MEDS: AMIODARONE 200 MG TAB PO SCH (09:28)
[2016-11-04] MEDS: DOCUSATE SODIUM 50 MG/SENNA 8.6 MG TAB PO SCH (09:28)
[2016-11-04] MEDS: FAMOTIDINE 20 MG TAB PO SCH (09:28)
[2016-11-04] MEDS: DIGOXIN 0.125 MG TAB PO SCH (09:28)
[2016-11-04] MEDS: DULoxetine HCl DR 60 MG CAP PO SCH (09:29)
[2016-11-04] MEDS: CYCLOBENZAPRINE HCL 10 MG TAB PO SCH (09:29)
[2016-11-04] MEDS: ASPIRIN EC 81 MG TABEC PO SCH (09:29)
[2016-11-04] MEDS ORDERED: AMIO200T PO (11:06)
[2016-11-04] MEDS ORDERED: COUM5TAB PO (11:11)
--- NOTE | 2016-11-04 11:14 | HHI.DS ---
Discharge Summary Admission Date Nov 01, 2016 at 21:09 Discharge Date: Nov 04, 2016 Admitting Diagnosis anemia, CINTHIA, appropriate firing of AICD 2/2 V Fib (1) AICD discharge ICD Code: Z45.02 - Encounter for adjustment and management of automatic implantable cardiac defibrillator Diagnosis: Principal Status: Acute (2) Subtherapeutic anticoagulation ICD Code: Z51.81 - Encounter for therapeutic drug level monitoring; Z79.01 - FPC (current) use of anticoagulants Diagnosis: Secondary Status: Acute (3) CINTHIA (acute kidney injury) ICD Code: N17.9 - Acute kidney failure, unspecified Diagnosis: Secondary Status: Resolved (4) Ischemic cardiomyopathy ICD Code: I25.5 - Ischemic cardiomyopathy Diagnosis: Secondary Status: Chronic (5) Ventricular fibrillation ICD Code: I49.01 - Ventricular fibrillation Diagnosis: Principal Status: Acute Procedures Cardiac cath 11/03 Brief History - From Admission 66 y/o male with a history of cardiac arrest, AICD/ pacemaker, CHF, HTN, Cardiac stents, Factor 5 Leiden deficiency, and RA presented to the ED after his AICD fired a total of 3 times. He states it fired prior to coming to the hospital and twice prior within the past 26 hours. He denies any chest pain, sob , or dizziness prior to to his AICD firing and/or after. AICD was interrogated in ED and multiple episodes of V Fib was shown. CBC/BMP: 11/04/16 0525 11/04/16 0525 Significant Findings Laboratory Tests Test 11/01/16 18:37 11/02/16 14:27 11/02/16 16:45 11/02/16 19:02 Red Blood Count 2.61 MIL/MM3 (4.50-5.90) 3.79 MIL/MM3 (4.50-5.90) Hemoglobin 7.7 GM/DL (13.0-17.0) Hematocrit 23.1 % (39.0-51.0) Red Cell Distribution Width 17.9 % (11.6-17.2) Monocytes (%) (Auto) 9.6 % (0.0-8.0) Prothrombin Time 9.6 SEC (9.8-11.6) Blood Urea Nitrogen 29 MG/DL (7-18) 22 MG/DL (7-18) Creatinine 1.65 MG/DL (0.60-1.30) Random Glucose 72 MG/DL (74-106) Calcium Level 8.3 MG/DL (8.5-10.1) Chloride Level 112 MEQ/L (98-107) 110 MEQ/L (98-107) Estimat Glomerular Filtration Rate 42 ML/MIN (>89) 56 ML/MIN (>89) Aspartate Amino Transf (AST/SGOT) 43 U/L (15-37) Alkaline Phosphatase 183 U/L (45-117) Total Protein 5.6 GM/DL (6.4-8.2) Albumin 1.9 GM/DL (3.4-5.0) Folate GREATER THAN 20.0 NG/ML Digoxin Level 0.5 NG/ML (0.8-2.0) White Blood Count 14.9 TH/MM3 (4.0-11.0) Mean Corpuscular Volume 106.4 FL (80.0-100.0) Mean Corpuscular Hemoglobin 35.8 PG (27.0-34.0) Platelet Count 140 TH/MM3 (150-450) Neutrophils (%) (Auto) 86.0 % (16.0-70.0) Lymphocytes (%) (Auto) 8.5 % (9.0-44.0) Neutrophils # (Auto) 12.8 TH/MM3 (1.8-7.7) Neutrophils % (Manual) 84 % (16-70) Lymphocytes % 8 % (9-44) Neutrophils # (Manual) 13.0 TH/MM3 (1.8-7.7) Myelocytes 2 % (0-0) Toxic Granulation 1+ (NORMAL) Platelet Estimate LOW (NORMAL) Ovalocytes 1+ (NORMAL) Test 11/03/16 05:33 11/03/16 05:53 11/03/16 21:07 11/04/16 05:25 Blood Urea Nitrogen 20 MG/DL (7-18) 21 MG/DL (7-18) Calcium Level 8.3 MG/DL (8.5-10.1) 8.1 MG/DL (8.5-10.1) Chloride Level 111 MEQ/L (98-107) 112 MEQ/L (98-107) Estimat Glomerular Filtration Rate 60 ML/MIN (>89) 65 ML/MIN (>89) White Blood Count 12.2 TH/MM3 (4.0-11.0) Red Blood Count 3.64 MIL/MM3 (4.50-5.90) 3.43 MIL/MM3 (4.50-5.90) Hemoglobin 12.9 GM/DL (13.0-17.0) 12.4 GM/DL (13.0-17.0) Hematocrit 38.9 % (39.0-51.0) 36.7 % (39.0-51.0) Mean Corpuscular Volume 106.9 FL (80.0-100.0) 107.0 FL (80.0-100.0) Mean Corpuscular Hemoglobin 35.6 PG (27.0-34.0) 36.2 PG (27.0-34.0) Platelet Count 128 TH/MM3 (150-450) 119 TH/MM3 (150-450) Neutrophils (%) (Auto) 83.4 % (16.0-70.0) 82.4 % (16.0-70.0) Neutrophils # (Auto) 10.2 TH/MM3 (1.8-7.7) Prothrombin Time 14.1 SEC (9.8-11.6) 13.4 SEC (9.8-11.6) Lymphocytes # (Auto) 0.9 TH/MM3 (1.0-4.8) Random Glucose 109 MG/DL (74-106) Imaging Last Impressions Chest X-Ray 11/01/16 [id number] Signed Impressions: Service Date/Time: Tuesday, November 01, 2016 17:52 - CONCLUSION: No evidence of acute cardiopulmonary disease. Reuben Childers MD PE at Discharge GENERAL: Well-developed well-nourished. In no acute distress. SKIN: Warm and dry. No lesions noted. HEENT: Normocephalic. Pupils equal and round. Mucous membranes pink and moist. CARDIOVASCULAR: Regular rate and rhythm. No murmur appreciated. RESPIRATORY: No accessory muscle use. Clear to auscultation. Breath sounds equal bilaterally. GASTROINTESTINAL: Abdomen soft, non-tender, nondistended. Bowel sounds x4. MUSCULOSKELETAL: No obvious deformities. No clubbing or cyanosis. Trace edema. NEUROLOGICAL: Awake and alert. No focal neurological deficits. Moves upper and lower extremities spontaneously. Normal speech. PSYCHIATRIC: Appropriate mood and affect; insight and judgment normal. Pt update on day of discharge Patient doing well today with no acute complaints. No events overnight. Cleared by cardiology for DC on Amiodarone. Hospital Course 66 y/o male with a history of cardiac arrest, AICD/ pacemaker, CHF, HTN, Cardiac stents, Factor 5 Leiden deficiency, and RA presented to the ED after his AICD fired a total of 3 times. AICD discharge, interrogated in ED found to have multiple episodes of V Fib and defibrillated appropriately. EKG reviewed and showed ventricular paced rhythm. -Consulted cardiology, Dr. Dukes, performed cardiac catheterization which showed no new lesions -Started on Amiodarone -Continue home digoxin and metoprolol Acute kidney injury: Creatinine 1.65, previously 0.99 on 10/07/12. -Creatinine improved to 1.13 with diuretic held -Caution with diuresis Subtherapeutic INR, INR .9: INR trended up during admission, compliance? History of factor V Leyden deficiency -Coumadin increased to 5 mg Daily -Monitor INR, repeat in 2-3 days, follow up with PCP Rheumatoid arthritis, chronic: Continue home prednisone, Plaquenil, methotrexate , and sulfasalazine Pt Condition on Discharge: Stable Discharge Disposition: Discharge Home Discharge Time: > 30 minutes Discharge Instructions DIET: Follow Instructions for: Heart Healthy Diet Activities you can perform: Regular-No Restrictions Follow up Referrals: Cardiology - 10 Days with Keith Dukes MD PCP Follow-up - 2-3 Days with Serg Arreaga M.d. New Orders: PT/INR - 2-3 Days New Medications: Amiodarone (Amiodarone) 200 Mg Tab 400 MG PO DAILY for arrhythmia for 30 Days, #60 TAB Take 400mg twice daily for 10 days and then 200mg daily after that. Warfarin (Coumadin) 5 Mg Tab 5 MG PO DAILY@1600 for Blood Clot Prevention, #30 TAB Continued Medications: Aspirin DR (Aspirin Adult Low Strength) 81 Mg Tabdr 81 MG PO DAILY, TAB Cyclobenzaprine (Flexeril) 10 Mg Tab 10 MG PO TID for Muscle Spasm, #90 TAB 0 Refills Diclofenac Sodium (Voltaren) 1 % Gel..gram. 1 APPLIC TOPICAL DAILY PRN for JOINT PAIN Digoxin (Lanoxin) 125 Mcg Tablet 125 MCG PO DAILY Duloxetine DR (Cymbalta DR) 60 Mg Capdr 60 MG PO DAILY, #30 CAP 0 Refills Folic Acid (Folic Acid) 1 Mg Tablet 1 MG PO SuMoWeThFrSa Take 1 tablet (1mg) daily on Monday,Monday,Monday,,Monday and Monday Furosemide (Lasix) 80 Mg Tab 80 MG PO DAILY PRN for EDEMA, #30 TAB 0 Refills Hydroxychloroquine (Plaquenil) 200 Mg Tab 200 MG PO BID, #60 TAB 0 Refills Take with food Lansoprazole (Prevacid) 30 Mg Capdr 30 MG PO DAILY, CAP 0 Refills Lorazepam (Ativan) 1 Mg Tab 1 MG PO HS PRN for SLEEP, TAB 0 Refills Losartan (Losartan) 25 Mg Tab 25 MG PO DAILY for Blood Pressure Management, #30 TAB 0 Refills Methotrexate (Methotrexate) 2.5 Mg Tab 25 MG PO WEEKLY, TAB 0 Refills Metoprolol Succinate ER 24 HR (Toprol XL) 50 Mg Tab 50 MG PO DAILY, #30 TAB 0 Refills Oxycodone (Oxycodone) 30 Mg Tab 30 MG PO Q4HR PRN for SEVERE PAIN, TAB 0 Refills Potassium Chloride Microencaps (Klor-Con M20) 20 Meq Tab 20 MEQ PO DAILY for Electrolyte Replacement, #30 TAB 0 Refills Prednisone (Prednisone) 10 Mg Tab 10 MG PO BID, TAB 0 Refills Ranitidine (Zantac) 150 Mg Tab 150 MG PO BID for Reduce Stomach Acid, #60 TAB 0 Refills Sulfasalazine (Sulfasalazine) 500 Mg Tab 500 MG PO Q8H, #180 TAB 0 Refills Discontinued Medications: Warfarin (Jantoven) 2 Mg Tab 2 MG PO MoWe for Blood Clot Prevention, #30 TAB 0 Refills Take 1 tablet (2mg) daily on Monday,Monday and Monday Warfarin (Jantoven) 4 Mg Tab 4 MG PO SuTuThSa for Blood Clot Prevention, #30 TAB 0 Refills Take 1 tablet (4mg) daily on Monday,Monday, and Monday Gerhard Acosta Nov 04, 2016 11:14
--- NOTE | 2016-11-04 13:42 | EKG ---
Date Performed: 11/04/2016 Time Performed: 08:44:34 PTAGE: 66 years EKG: Baseline artifact present probable Ventricular pacing. Pacemaker rhythm - no further analys is Abnormal ECG PREVIOUS TRACING : 11/01/2016 17.30 DOCTOR: Eduardo Kingsley Interpretating Date/Time 11/04/2016 13:40:52
--- NOTE | 2016-11-04 13:48 | EKG ---
Date Performed: 11/04/2016 Time Performed: 05:34:12 PTAGE: 66 years EKG: Normal Sinus rhythm possible Ventricular pacing Abnormal ECG Compared to prior electrocardiogram, rate has decreased NO PREVIOUS TRACING DOCTOR: Eduardo Kingsley Interpretating Date/Time 11/04/2016 13:47:35
== END 2016-11-04 13:14 | disposition home or self-care (01) ==
LOC: NEPC 17:13 → INTOOBSV 21:09 → NEDA 21:09 → NEPHCDU 23:09 → HCIS 11-03 08:59 → HCIN 11-03 16:06
PROVIDERS: ADMIT Hospitalist; ATTEND Hospitalist
DX: I49.01 Ventricular fibrillation (principal); I25.10 Atherosclerotic heart disease of native coronary artery without angina pectoris; D64.9 Anemia, unspecified; N17.9 Acute kidney failure, unspecified; I25.5 Ischemic cardiomyopathy; I50.9 Heart failure, unspecified; I11.0 Hypertensive heart disease with heart failure; M19.90 Unspecified osteoarthritis, unspecified site; J44.9 Chronic obstructive pulmonary disease, unspecified; I48.91 Unspecified atrial fibrillation; M06.9 Rheumatoid arthritis, unspecified; I25.2 Old myocardial infarction; K21.0 Gastro-esophageal reflux disease with esophagitis; K44.9 Diaphragmatic hernia without obstruction or gangrene; D68.51 Activated protein C resistance; Z79.01 Long term (current) use of anticoagulants; Z95.810 Presence of automatic (implantable) cardiac defibrillator; Z86.74 Personal history of sudden cardiac arrest; Z86.711 Personal history of pulmonary embolism; Z95.5 Presence of coronary angioplasty implant and graft
CPT/HCPCS: 71010; 80048; 80076; 80162; 82550; 82607; 82728; 82746; 83540; 83550; 83735; 84484; 85007; 85014; 85018; 85025; 85027; 85610; 85730; 86850; 86900; 86901; 86920; 93005; 93458; 96360; 96361; 96372; 99285; C1760; C1769; C1893; G0269; G0378; J1644; J1650; J2250; J2270; J7030; J7512; Q9967

== ENCOUNTER 2016-12-17 15:56 | Inpatient (IN) | payer OTHER, MEDICARE ==
[~2016-12-17] VITALS: Ht 175.3 cm; Wt 95.6 kg
[~2016-12-17 15:56] MED LIST changes: +AMIO200T PO; +ASPI1TAB91 PO; -CARV12.52 PO; -CEPH500C3 PO; +COUM5TAB PO; -CYCL1PAK PO; +CYCL1TAB29 PO; +CYMB60CA PO; -DIGO0.25 PO; -FOLI1 PO; +FOLI1TAB6 PO; +FURO1TAB61 PO; -FURO20TA PO; -HYDR200T42 PO; -HYOS0.1251 PO; -KLOR20TA6 PO; +LANO0.12 PO; +LOSA25TA PO; -METH2.5 PO; +METH2.5T PO; +OXYC30TA PO; -OXYC5 PO; +PLAQ200T PO; +POTA-245 PO; +PRED10 PO; +PREV30CA11 PO; -PROT40TA PO; +SULF500T3 PO; +TOPR50TA PO; +VOLT1GEL4 TOPICAL; -WARF-20 PO; +ZANT150T2 PO; -[UNRECOGNIZED DRUG - OTHER]
[2016-12-17 16:04] VITALS: BP 108/58; PULSE 83; RESP 17; TEMP 100.2; O2SAT 96
[2016-12-17 16:07] VITALS: O2SAT 94
[2016-12-17] MEDS ORDERED: SODIUM CHLORIDE 0.9% FLUSH 10 ML FLUSH IVF PRN (16:15)
--- NOTE | 2016-12-17 16:15 | PD ---
HPI Chief Complaint: Respiratory Symptoms Time Seen by Provider: 16:06 Travel History International Travel<30 days: No Contact w/Intl Traveler<30days: No Traveled to known affect area: No History of Present Illness HPI 66-year-old male with history of ischemic cardiomyopathy, AICD, CHF, rheumatoid arthritis, GERD, CAD, here for evaluation of shortness of breath. The patient reports worsening shortness of breath over the last couple of days. States that his shortness of breath mainly occurs at night and is better during the daytime. He has had a cough that is productive of sputum, however he has not looked at the sputum because he swallows it. No fevers or chills. No chest pain. PFSH Past Medical History Arthritis: Yes Asthma: No Autoimmune Disease: Yes (RA) Blood Disorders: No Anxiety: No Depression: No Heart Rhythm Problems: Yes Cancer: No Cardiovascular Problems: Yes (PACEMAKER) High Cholesterol: No Chemotherapy: No Chest Pain: Yes Congestive Heart Failure: Yes COPD: Yes Diabetes: No Diminished Hearing: No Endocrine: No Gastrointestinal Disorders: Yes (GASTRISTIS, GERD) GERD: Yes Glaucoma: No Genitourinary: No Hepatitis: Yes (VIRAL) Hiatal Hernia: Yes Hypertension: Yes Immune Disorder: No Implanted Vascular Access Dvce: Yes Musculoskeletal: Yes Neurologic: Yes Psychiatric: No Reproductive: No Respiratory: Yes Integumentary: No Immunizations Current: Yes Myocardial Infarction: Yes (1998) Radiation Therapy: No Sleep Apnea: No Thyroid Disease: No Ulcer: Yes Past Surgical History Abdominal Surgery: No AICD: Yes (GUIDANT) Arteriovenous Shunt: No Body Medical Devices: STENT Cardiac Surgery: Yes (PACER ([employer] [id number]) , 2 STENTS) Ear Surgery: No Endocrine Surgery: No Eye Surgery: No Genitourinary Surgery: No Gynecologic Surgery: No Insulin Pump: No Joint Replacement: Yes (R HIP) Oral Surgery: Yes (all teeth pulled) Pacemaker: Yes Thoracic Surgery: No Tonsillectomy: Yes Other Surgery: Yes (MULTI MUSCULOSKELETAL SURGERIES) Social History Alcohol Use: Yes (OCCASIONAL) Tobacco Use: No Substance Use: No Allergies-Medications (Allergen,Severity, Reaction): Coded Allergies: No Known Allergies (Verified , 11/01/16) Reported Meds & Prescriptions Reported Meds & Active Scripts Active Coumadin (Warfarin) 5 Mg Tab 5 Mg PO DAILY@1600 Amiodarone (Amiodarone HCl) 200 Mg Tab 400 Mg PO DAILY 30 Days Take 400mg twice daily for 10 days and then 200mg daily after that. Reported Lyrica (Pregabalin) 50 Mg Cap 50 Mg PO TID Entresto (Sacubitril-Valsartan) 24-26 Mg Tab 1 Tab PO DAILY Voltaren (Diclofenac Sodium) 1 % Gel..gram. 1 Applic TOPICAL DAILY PRN Ativan (Lorazepam) 1 Mg Tab 1 Mg PO BID PRN Flexeril (Cyclobenzaprine HCl) 10 Mg Tab 10 Mg PO BID PRN Oxycodone (Oxycodone HCl) 30 Mg Tab 30 Mg PO Q6HR PRN Toprol XL (Metoprolol Succinate) 50 Mg Tab 50 Mg PO DAILY Cymbalta DR (Duloxetine HCl) 60 Mg Capdr 60 Mg PO DAILY Lasix (Furosemide) 80 Mg Tab 80 Mg PO DAILY PRN Sulfasalazine 500 Mg Tab 500 Mg PO Q8H Zantac (Ranitidine HCl) 150 Mg Tab 150 Mg PO BID Plaquenil (Hydroxychloroquine Sulfate) 200 Mg Tab 200 Mg PO BID Take with food Prednisone 10 Mg Tab 10 Mg PO BID Prevacid (Lansoprazole) 30 Mg Capdr 30 Mg PO DAILY Methotrexate 2.5 Mg Tab 25 Mg PO MONDAY Klor-Con M20 (Potassium Chloride Microencaps) 20 Meq Tab 20 Meq PO DAILY PRN Folic Acid 1 Mg Tablet 1 Mg PO Take 1 tablet (1mg) daily on Monday,Monday,Monday,,Monday and Monday Lanoxin (Digoxin) 125 Mcg Tablet 125 Mcg PO DAILY Aspirin Adult Low Strength (Aspirin) 81 Mg Tabdr 81 Mg PO DAILY Review of Systems Except as stated in HPI: all other systems reviewed are Neg Physical Exam Narrative GENERAL: Well-developed, well-nourished comfortable, no apparent distress. SKIN: Focused skin assessment warm/dry. HEAD: Atraumatic. Normocephalic. EYES: Pupils equal and round. No scleral icterus. No injection or drainage. ENT: Mucous membranes pink and moist. NECK: Trachea midline. No JVD. CARDIOVASCULAR: Regular rate and rhythm. RESPIRATORY: No accessory muscle use. Clear to auscultation. Breath sounds equal bilaterally. GASTROINTESTINAL: Abdomen soft, non-tender, nondistended. MUSCULOSKELETAL: No obvious deformities. No clubbing. No cyanosis. No edema. NEUROLOGICAL: Awake and alert. No obvious cranial nerve deficits. Motor grossly within normal limits. Normal speech. PSYCHIATRIC: Appropriate mood and affect; insight and judgment normal. Data Data Last Documented VS Vital Signs Date Time Temp Pulse Resp B/P (MAP) Pulse Ox O2 Delivery O2 Flow Rate FiO2 12/17/16 17:04 101.7 12/17/16 16:09 94 Nasal Cannula 2.00 12/17/16 16:07 88 20 12/17/16 16:04 108/58 (75) Orders Orders Complete Blood Count With Diff (12/17/16 16:12) Comprehensive Metabolic Panel (12/17/16 16:12) B-Type Natriuretic Peptide (12/17/16 16:12) Act Partial Throm Time (Ptt) (12/17/16 16:12) Prothrombin Time / Inr (Pt) (12/17/16 16:12) Ckmb (Isoenzyme) Profile (12/17/16 16:12) Troponin I (12/17/16 16:12) Influenzae A/B Antigen (12/17/16 16:12) Iv Access Insert/Monitor (12/17/16 16:12) Electrocardiogram (12/17/16 16:12) Ecg Monitoring (12/17/16 16:12) Oximetry (12/17/16 16:12) Oxygen Administration (12/17/16 16:12) Chest, Single Ap (12/17/16 16:12) Sodium Chloride 0.9% Flush (Ns Flush) (12/17/16 16:15) Lactic Acid Sepsis Protocol (12/17/16 16:44) Blood Culture (12/17/16 16:44) Ceftriaxone Inj (Rocephin Inj) (12/17/16 17:00) Azithromycin Inj (Zithromax Inj) (12/17/16 17:00) Acetaminophen (Tylenol) (12/17/16 17:00) Ct Brain W/O Iv Contrast(Rout) (12/17/16 ) Digoxin (12/17/16 16:15) Labs Laboratory Tests Test 12/17/16 16:15 12/17/16 16:45 White Blood Count 9.6 TH/MM3 Red Blood Count 3.41 MIL/MM3 Hemoglobin 12.5 GM/DL Hematocrit 36.5 % Mean Corpuscular Volume 107.2 FL Mean Corpuscular Hemoglobin 36.8 PG Mean Corpuscular Hemoglobin Concent 34.3 % Red Cell Distribution Width 16.2 % Platelet Count 158 TH/MM3 Mean Platelet Volume 9.8 FL Neutrophils (%) (Auto) 77.3 % Lymphocytes (%) (Auto) 18.2 % Monocytes (%) (Auto) 3.5 % Eosinophils (%) (Auto) 0.8 % Basophils (%) (Auto) 0.2 % Neutrophils # (Auto) 7.4 TH/MM3 Lymphocytes # (Auto) 1.7 TH/MM3 Monocytes # (Auto) 0.3 TH/MM3 Eosinophils # (Auto) 0.1 TH/MM3 Basophils # (Auto) 0.0 TH/MM3 CBC Comment AUTO DIFF Differential Total Cells Counted 100 Neutrophils % (Manual) 69 % Band Neutrophils % 9 % Lymphocytes % 17 % Monocytes % 4 % Eosinophils % 1 % Neutrophils # (Manual) 7.5 TH/MM3 Differential Comment FINAL DIFF MANUAL Toxic Granulation 1+ Platelet Estimate NORMAL Platelet Morphology Comment ENLARGED Prothrombin Time 19.1 SEC Prothromb Time International Ratio 1.7 RATIO Activated Partial Thromboplast Time 46.2 SEC Blood Urea Nitrogen 26 MG/DL Creatinine 1.78 MG/DL Random Glucose 83 MG/DL Total Protein 5.6 GM/DL Albumin 2.1 GM/DL Calcium Level 8.3 MG/DL Alkaline Phosphatase 42 U/L Aspartate Amino Transf (AST/SGOT) 20 U/L Alanine Aminotransferase (ALT/SGPT) 26 U/L Total Bilirubin 0.5 MG/DL Sodium Level 139 MEQ/L Potassium Level 3.3 MEQ/L Chloride Level 104 MEQ/L Carbon Dioxide Level 25.9 MEQ/L Anion Gap 9 MEQ/L Estimat Glomerular Filtration Rate 38 ML/MIN Total Creatine Kinase 98 U/L Troponin I 0.19 NG/ML B-Type Natriuretic Peptide 175 PG/ML Digoxin Level 0.6 NG/ML Lactic Acid Level 3.0 mmol/L [facility] Medical Decision Making Medical Screen Exam Complete: Yes Emergency Medical Condition: Yes Interpretation(s) EKG: Electronic ventricular paced at a rate of 80 Differential Diagnosis CHF, pulmonary edema, pneumonia, PE, pneumothorax, ACS Narrative Course Vital signs show heart rate 83, blood pressure 108/58, pulse ox 94% on 2 L nasal cannula, rectal temp of 101.7F. CBC: WBC 9.6, hemoglobin 12.5, hematocrit 36.5, platelets 158, neutrophils 77.3% , band neutrophils 9%. CMP is remarkable for BUN 26, creatinine 1.70, GFR 38. BNP is 175. Troponin is 0.19. Chest x-ray: Interval development of patchy airspace infiltrates in the left upper and left lower lung. The patient and the patient's were made aware of all findings. He was started on Rocephin and azithromycin for the pneumonia. The patient's informed me that the patient has been a lot more weak than usual over the last couple of days and has had several falls. She is concerned because there is an area of ecchymosis on his forehead. CT of his head will be ordered to rule out intracranial trauma. Chart review shows that the patient had a cardiac catheter performed last month by Dr. Dukes which showed severely impaired LV function with an EF of 15%. CT head shows age-related atrophy, no acute findings. Patient will be admitted for further treatment and evaluation of pneumonia, dyspnea, elevated troponin. Case discussed with hospitalist Dr. Foster who will admit the patient to his service. Diagnosis Primary Impression: Pneumonia Qualified Codes: J18.1 - Lobar pneumonia, unspecified organism Additional Impressions: Dyspnea Qualified Codes: R06.09 - Other forms of dyspnea Elevated troponin Admitting Information Admitting Physician Requests: it Pierce Garner MD Dec 17, 2016 16:15
[2016-12-17 16:26] LABS: AUTOMATED NEUTROPHIL # 7.4 TH/MM3 (1.8-7.7); BASOPHIL % 0.2 % (0.0-2.0); EOSINOPHIL # 0.1 TH/MM3 (0-0.4); EOSINOPHIL % 0.8 % (0.0-4.0); HEMATOCRIT 36.5 % (39.0-51.0); LYMPH % 18.2 % (9.0-44.0); LYMPHOCYTE # 1.7 TH/MM3 (1.0-4.8); MEAN CELL VOLUME 107.2 FL (80.0-100.0); MEAN CORPUSCULAR HEMOGLOBIN 36.8 PG (27.0-34.0); MEAN CORPUSCULAR HGB CONC 34.3 % (32.0-36.0); MONO % 3.5 % (0.0-8.0); NEUT % 77.3 % (16.0-70.0); PLATELET COUNT 158 TH/MM3 (150-450); RED BLOOD COUNT 3.41 MIL/MM3 (4.50-5.90); RED CELL DISTRIBUTION WIDTH 16.2 % (11.6-17.2); WHITE BLOOD COUNT 9.6 TH/MM3 (4.0-11.0)
[2016-12-17 16:27] LABS: HEMO FLAGS AUTO DIFF
--- NOTE | 2016-12-17 16:27 | RADRPT ---
EXAM DATE/TIME: 12/17/2016 16:13 [facility] COMPARISON: CHEST SINGLE AP, November 01, 2016, 17:52. INDICATIONS : Shortness of breath and fever. MEDICAL HISTORY : Chronic obstructive pulmonary disease. Congestive heart failure. Hypertension. SURGICAL HISTORY : Pacemaker. ENCOUNTER: Initial ACUITY: 3 days PAIN SCORE: 0/10 LOCATION: Bilateral chest FINDINGS: There is some faint patchy airspace opacity in the left upper lung and no consolidative infiltrates i n the left lower lung. Mild indistinctness of the central bronchopulmonary markings. The heart is n ormal size. Both hemidiaphragms are well delineated. Cardiac pacer leads in place. Old right rib f ractures. CONCLUSION: Interval development of patchy airspace infiltrates in the left upper and left lower lung. Nii Griggs MD on December 17, 2016 at 16:25 Board Certified Radiologist. This report was verified electronically.
[2016-12-17 16:35] LABS: APTT (PATIENT) 46.2 SEC (24.3-30.1); INTERNATIONAL NORMALIZED RATIO 1.7 RATIO; PROTHROMBIN TIME - PATIENT 19.1 SEC (9.8-11.6)
[2016-12-17 16:45] LABS: ANION GAP 9 MEQ/L (5-15); AST (GOT) 20 U/L (15-37); BICARBONATE 25.9 MEQ/L (21.0-32.0); BLOOD UREA NITROGEN 26 MG/DL (7-18); CHLORIDE 104 MEQ/L (98-107); GLOMERULAR FILTRATION RATE 38 ML/MIN (>89); POTASSIUM 3.3 MEQ/L (3.5-5.1); SODIUM (NA) 139 MEQ/L (136-145)
[2016-12-17 16:46] LABS: ALT (GPT) 26 U/L (12-78)
[2016-12-17 16:48] LABS: BANDS 9 % (0-6); EOSINOPHILS 1 % (0-4); NEUTROPHIL # MANUAL DIFF 7.5 TH/MM3 (1.8-7.7); POLYS (SEG NEUTROPHILS) 69 % (16-70); TOXIC GRANULATION 1+ (NORMAL); WBC DIFF SAMPLE 100
[2016-12-17 16:49] LABS: PLATELET ESTIMATE SMEAR NORMAL (NORMAL); PLATELET MORPHOLOGY ENLARGED (NORMAL); SCAN/DIFF FINAL DIFF MANUAL
[2016-12-17 16:50] LABS: ALKALINE PHOSPHATASE 42 U/L (45-117); TOTAL BILIRUBIN ADULT 0.5 MG/DL (0.2-1.0)
[2016-12-17 16:54] LABS: CREATINE KINASE 98 U/L (39-308)
[2016-12-17] MEDS ORDERED: ACETAMINOPHEN 325 MG TAB PO ONE (17:00)
[2016-12-17] MEDS ORDERED: AZITHROMYCIN INJ 500 MG in SODIUM CHLOR 0.9% 250 ML INJ 250 ML IV ONE (17:00)
[2016-12-17] MEDS ORDERED: cefTRIAXone INJ 1,000 MG in SODIUM CHLORIDE 0.9% INJ 100 ML IV ONE (17:00)
[2016-12-17 17:04] VITALS: BP 102/43; PULSE 86; RESP 15; TEMP 101.7; O2SAT 94
[2016-12-17] MEDS ORDERED: SACU1TAB PO (17:05)
[2016-12-17] MEDS ORDERED: LYRI50CA PO (17:05)
[2016-12-17 17:46] LABS: DIGOXIN 0.6 NG/ML (0.8-2.0)
--- NOTE | 2016-12-17 17:51 | RADRPT ---
EXAM DATE/TIME: 12/17/2016 17:45 [facility] COMPARISON: No previous studies available for comparison. INDICATIONS : Headache, fever, and weakness. RADIATION DOSE: 39.14 CTDIvol (mGy) MEDICAL HISTORY : Cardiovascular disease. Congestive heart failure. Hypertension.Hepatitis SURGICAL HISTORY : None. ENCOUNTER: Initial ACUITY: 1 day PAIN SCALE: 0/10 LOCATION: cranial TECHNIQUE: Multiple contiguous axial images were obtained of the head. Using automated exposure control and adj ustment of the mA and/or kV according to patient size, radiation dose was kept as low as reasonably a chievable to obtain optimal diagnostic quality images. DICOM format image data is available electro nically for review and comparison. FINDINGS: CEREBRUM: The ventricles are normal for age. No evidence of midline shift, mass lesion, hemorrhage or acute in farction. No extra-axial fluid collections are seen. POSTERIOR FOSSA: The cerebellum and brainstem are intact. The 4th ventricle is midline. The cerebellopontine angle i s unremarkable. EXTRACRANIAL: The visualized portion of the orbits is intact. SKULL: The calvaria is intact. No evidence of skull fracture. CONCLUSION: No acute findings. Age-appropriate atrophy. Nii Griggs MD on December 17, 2016 at 17:49 Board Certified Radiologist. This report was verified electronically.
[2016-12-17] MEDS ORDERED: NALOXONE HCL 0.4 MG/ML AMP IV PUSH PRN (18:15)
[2016-12-17] MEDS ORDERED: SENNOSIDES 8.6 MG TAB PO PRN (18:15)
[2016-12-17] MEDS ORDERED: ONDANSETRON HCL 4 MG/2 ML VIAL IVP PRN (18:15)
[2016-12-17] MEDS ORDERED: SODIUM CHLORIDE 0.9% FLUSH 10 ML FLUSH IV FLUSH PRN (18:15)
[2016-12-17] MEDS ORDERED: MAGNESIUM HYDROXIDE SUSP 30 ML CUP PO PRN (18:15)
[2016-12-17] MEDS ORDERED: LACTULOSE SYRUP 20 GM/30 ML CUP PO PRN (18:15)
[2016-12-17] MEDS ORDERED: BISACODYL 10 MG SUPP RECTAL PRN (18:15)
[2016-12-17 18:39] VITALS: BP 100/50; PULSE 68; RESP 18; TEMP 98.6; O2SAT 95
[2016-12-17 18:56] LABS: LACTIC ACID GHOST NOT REPORTABLE
[2016-12-17] MEDS: sulfaSALAzine 500 MG TAB PO SCH ×2 (19:00→22:55)
--- NOTE | 2016-12-17 20:00 | HHI.HP ---
HPI Service [facility] Primary Care Physician Serg Arreaga M.D. Admission Diagnosis pneumonia, dyspnea, elevated troponin Diagnoses: Travel History International Travel<30 Days: No Contact w/Intl Traveler <30 Da: No Traveled to Known Affected Are: No History of Present Illness 66-year-old male with history of ischemic cardiomyopathy, react arrest, AICD with pacemaker, CHF, hypertension, CAD stenting, factor V Leiden deficiency, rheumatoid arthritis who presents with a 2 day history of shortness of breath, productive cough. He has been swelling sputum, has not visualized. He reports fevers, unmeasured. Denies any chest pain. Denies any nausea or vomiting. He reports 2 day history of generalized fatigue. Review of Systems Except as stated in HPI: all other systems reviewed are Neg Past Family Social History Past Medical History Cardiac arrest AICD CHF AFIB [place] Factor 5 Leiden deficiency with 3 PEs at one time COPD Viral hepatitis 40 years ago Rheumatoid arthritis Past Surgical History AICD/Pacemaker Cardiac stents x 2 Bilateral shoulder repair Bilateral knee repair Hip replacement Reported Medications Reported Meds & Active Scripts Active Coumadin (Warfarin) 5 Mg Tab 5 Mg PO DAILY@1600 Amiodarone (Amiodarone HCl) 200 Mg Tab 400 Mg PO DAILY 30 Days Take 400mg twice daily for 10 days and then 200mg daily after that. Reported Lyrica (Pregabalin) 50 Mg Cap 50 Mg PO TID Entresto (Sacubitril-Valsartan) 24-26 Mg Tab 1 Tab PO DAILY Voltaren (Diclofenac Sodium) 1 % Gel..gram. 1 Applic TOPICAL DAILY PRN Ativan (Lorazepam) 1 Mg Tab 1 Mg PO BID PRN Flexeril (Cyclobenzaprine HCl) 10 Mg Tab 10 Mg PO BID PRN Oxycodone (Oxycodone HCl) 30 Mg Tab 30 Mg PO Q6HR PRN Toprol XL (Metoprolol Succinate) 50 Mg Tab 50 Mg PO DAILY Cymbalta DR (Duloxetine HCl) 60 Mg Capdr 60 Mg PO DAILY Lasix (Furosemide) 80 Mg Tab 80 Mg PO DAILY PRN Sulfasalazine 500 Mg Tab 500 Mg PO Q8H Zantac (Ranitidine HCl) 150 Mg Tab 150 Mg PO BID Plaquenil (Hydroxychloroquine Sulfate) 200 Mg Tab 200 Mg PO BID Take with food Prednisone 10 Mg Tab 10 Mg PO BID Prevacid (Lansoprazole) 30 Mg Capdr 30 Mg PO DAILY Methotrexate 2.5 Mg Tab 25 Mg PO MONDAY Klor-Con M20 (Potassium Chloride Microencaps) 20 Meq Tab 20 Meq PO DAILY PRN Folic Acid 1 Mg Tablet 1 Mg PO SUMOWETHFRSA Take 1 tablet (1mg) daily on Monday,Monday,Monday,,Monday and Monday Lanoxin (Digoxin) 125 Mcg Tablet 125 Mcg PO DAILY Aspirin Adult Low Strength (Aspirin) 81 Mg Tabdr 81 Mg PO DAILY Allergies: Coded Allergies: No Known Allergies (Verified , 11/01/16) Family History Father from heart disease in his 80s. Mother passed way from stroke in her 80s. Social History Nonsmoker. Nondrinker. Denies illicit drugs. Physical Exam Vital Signs Vital Signs Date Time Temp Pulse Resp B/P (MAP) Pulse Ox O2 Delivery O2 Flow Rate FiO2 12/17/16 17:04 101.7 86 15 102/43 (62) 94 Nasal Cannula 2.00 12/17/16 16:09 94 Nasal Cannula 2.00 12/17/16 16:07 94 Nasal Cannula 2.00 12/17/16 16:07 94 Nasal Cannula 2.00 12/17/16 16:07 88 20 94 Nasal Cannula 2.00 12/17/16 16:04 100.2 83 17 108/58 (75) 96 Physical Exam GENERAL: This is a well-nourished, well-developed patient, who appears somewhat short of breath. Alert and oriented to location only. This is not usually know the year. SKIN: No rashes, ecchymoses or lesions. Cool and dry. HEAD: Atraumatic. Normocephalic. No temporal or scalp tenderness. EYES: Pupils equal round and reactive. Extraocular motions intact. No scleral icterus. No injection or drainage. ENT: Nose without bleeding, purulent drainage or septal hematoma. Throat without erythema, tonsillar hypertrophy or exudate. Uvula midline. Airway patent. NECK: Trachea midline. No JVD or lymphadenopathy. Supple, nontender, no meningeal signs. CARDIOVASCULAR: Regular rate and rhythm without murmurs, gallops, or rubs. RESPIRATORY: Clear to auscultation. Breath sounds equal bilaterally. No wheezes , rales, or rhonchi. GASTROINTESTINAL: Abdomen soft, non-tender, nondistended. No hepato-splenomegaly , or palpable masses. No guarding. MUSCULOSKELETAL: Extremities without clubbing, cyanosis. No joint tenderness, effusion. Trace peripheral edema. No calf tenderness. Negative Homans sign bilaterally. NEUROLOGICAL: Awake and alert. Cranial nerves II through XII intact. Motor and sensory grossly within normal limits. Five out of 5 muscle strength in all muscle groups. Normal speech. Laboratory Laboratory Tests Test 12/17/16 16:15 12/17/16 16:45 White Blood Count 9.6 Red Blood Count 3.41 Hemoglobin 12.5 Hematocrit 36.5 Mean Corpuscular Volume 107.2 Mean Corpuscular Hemoglobin 36.8 Mean Corpuscular Hemoglobin Concent 34.3 Red Cell Distribution Width 16.2 Platelet Count 158 Mean Platelet Volume 9.8 Neutrophils (%) (Auto) 77.3 Lymphocytes (%) (Auto) 18.2 Monocytes (%) (Auto) 3.5 Eosinophils (%) (Auto) 0.8 Basophils (%) (Auto) 0.2 Neutrophils # (Auto) 7.4 Lymphocytes # (Auto) 1.7 Monocytes # (Auto) 0.3 Eosinophils # (Auto) 0.1 Basophils # (Auto) 0.0 CBC Comment AUTO DIFF Differential Total Cells Counted 100 Neutrophils % (Manual) 69 Band Neutrophils % 9 Lymphocytes % 17 Monocytes % 4 Eosinophils % 1 Neutrophils # (Manual) 7.5 Differential Comment FINAL DIFF MANUAL Toxic Granulation 1+ Platelet Estimate NORMAL Platelet Morphology Comment ENLARGED Prothrombin Time 19.1 Prothromb Time International Ratio 1.7 Activated Partial Thromboplast Time 46.2 Blood Urea Nitrogen 26 Creatinine 1.78 Random Glucose 83 Total Protein 5.6 Albumin 2.1 Calcium Level 8.3 Alkaline Phosphatase 42 Aspartate Amino Transf (AST/SGOT) 20 Alanine Aminotransferase (ALT/SGPT) 26 Total Bilirubin 0.5 Sodium Level 139 Potassium Level 3.3 Chloride Level 104 Carbon Dioxide Level 25.9 Anion Gap 9 Estimat Glomerular Filtration Rate 38 Total Creatine Kinase 98 Troponin I 0.19 B-Type Natriuretic Peptide 175 Digoxin Level 0.6 Lactic Acid Level 3.0 Date/Time Source Procedure Growth Status 12/17/16 16:45 Blood Peripheral Aerobic Blood Culture Pending Received 12/17/16 16:45 Blood Peripheral Anaerobic Blood Culture Pending Received 12/17/16 16:20 Nasal Washing Influenza Types A,B Antigen (LARY) - Final NEGATIVE FOR FLU A AND B ANTIGEN.... Complete Result Diagram: 12/17/16 1615 12/17/16 1615 Caprini VTE Risk Assessment Caprini VTE Risk Assessment: Mod/High Risk (score >= 2) Caprini Risk Assessment Model Point Value = 1 Point Value = 2 Point Value = 3 Point Value = 5 Age 41-60 Minor surgery BMI > 25 kg/m2 Swollen legs Varicose veins or History of unexplained or recurrent spontaneous Oral contraceptives or hormone replacement Sepsis (< 1 month) Serious lung disease, including pneumonia (< 1 month) Abnormal pulmonary function Acute myocardial infarction Congestive heart failure (< 1 month) History of inflammatory bowel disease Medical patient at bed rest Age 61-74 Arthroscopic surgery Major open surgery (> 45 min) Laparoscopic surgery (> 45 min) Malignancy Confined to bed (> 72 hours) Immobilizing plaster cast Central venous access Age >= 75 History of VTE Family history of VTE Factor V Leiden Prothrombin [id number] Lupus anticoagulant Anticardiolipin antibodies Elevated serum homocysteine Heparin-induced thrombocytopenia Other congenital or acquired thrombophilia Stroke (< 1 month) Elective arthroplasty Hip, pelvis, or leg fracture Acute spinal cord injury (< 1 month) Prophylaxis Regimen Total Risk Factor Score Risk Level Prophylaxis Regimen 0-1 Low Early ambulation 2 Moderate Order ONE of the following: *Sequential Compression Device (SCD) *Heparin 5000 units SQ BID 3-4 Higher Order ONE of the following medications: *Heparin 5000 units SQ TID *Enoxaparin/Lovenox 40 mg SQ daily (WT < 150 kg, CrCl > 30 mL/min) *Enoxaparin/Lovenox 30 mg SQ daily (WT < 150 kg, CrCl > 10-29 mL/min) *Enoxaparin/Lovenox 30 mg SQ BID (WT < 150 kg, CrCl > 30 mL/min) AND/OR *Sequential Compression Device (SCD) 5 or more Highest Order ONE of the following medications: *Heparin 5000 units SQ TID (Preferred with Epidurals) *Enoxaparin/Lovenox 40 mg SQ daily (WT < 150 kg, CrCl > 30 mL/min) *Enoxaparin/Lovenox 30 mg SQ daily (WT < 150 kg, CrCl > 10-29 mL/min) *Enoxaparin/Lovenox 30 mg SQ BID (WT < 150 kg, CrCl > 30 mL/min) AND *Sequential Compression Device (SCD) Assessment and Plan Assessment and Plan //Suspected severe Sepsis //Suspected atypical pneumonia. -Fever 101.7, respiratory rate 20, 9% bands. Lactate is 3 -Spectrum that white count is not elevated due to methotrexate, and heart rate is not elevated due to metoprolol. -Left-sided pneumonia on chest x-ray personally interpreted. -Broad-spectrum antibiotics. //CHF //Hypertension //CAD //Atrial fibrillation -BMP in the 170s, no evidence of acute fluid overload. EF previously 15%. Continue home blood pressure medications. Can use digoxin. Consult cardiology. //Thrombophilia. Factor V Leiden deficiency -INR 1.7. Continue warfarin. //Rheumatoid arthritis. Hold off on methotrexate for now setting of infection. -Continue Plaquenil. Continue sulfasalazine. -Continue chronic steroid. //GERD. Continue PPI. //Acute kidney injury. Creatinine 1.8 from baseline 1.1. -Fluid resuscitation her treatment of sepsis above. Discussed Condition With Dr. Foster, patient. Physician Certification 2 Midnight Certification Type: Admission for Inpatient Services Order for Inpatient Services The services are ordered in accordance with Medicare regulations or non- Medicare payer requirements, as applicable. In the case of services not specified as inpatient-only, they are appropriately provided as inpatient services in accordance with the 2-midnight benchmark. Estimated LOS (days): 3 days is the estimated time the patient will need to remain in the hospital, assuming treatment plan goals are met and no additional complications. Post-Hospital Plan: Not yet determined Aristides Black MD Dec 17, 2016 20:00
[2016-12-17 20:46] VITALS: PULSE 91
[2016-12-17] MEDS ORDERED: NON-FORMULARY DRUG (Ranitidine (Zantac) 150 MG) PO SCH (21:00)
[2016-12-17] MEDS: FOLIC ACID 1 MG TAB PO SCH (22:11)
[2016-12-17] MEDS: SODIUM CHLORIDE 0.9% FLUSH 10 ML FLUSH IV FLUSH SCH (22:11)
[2016-12-17] MEDS: predniSONE 10 MG TAB PO SCH (22:11)
[2016-12-17] MEDS: HYDROXYCHLOROQUINE SULFATE 200 MG TAB PO SCH (22:12)
[2016-12-17 22:51] VITALS: BP 101/54; PULSE 81; TEMP 99.8; O2SAT 94
[2016-12-17] MEDS ORDERED: POTASSIUM CHLORIDE 10 MEQ CONTROLLED RELEASE TAB PO ONE (23:15)
[2016-12-18] VITALS (10 sets, daily range): BP systolic 94–117; BP diastolic 50–62; PULSE 71–89; RESP 17–20; TEMP 97.6–98.8; O2SAT 91–94
[2016-12-18 04:49] LABS: AUTOMATED NEUTROPHIL # 9.5 TH/MM3 (1.8-7.7); BASOPHIL % 0.1 % (0.0-2.0); EOSINOPHIL % 0.4 % (0.0-4.0); HEMATOCRIT 32.9 % (39.0-51.0); LYMPHOCYTE # 0.8 TH/MM3 (1.0-4.8); MEAN CELL VOLUME 107.8 FL (80.0-100.0); MEAN CORPUSCULAR HEMOGLOBIN 36.6 PG (27.0-34.0); MONO % 4.9 % (0.0-8.0); NEUT % 87.6 % (16.0-70.0); PLATELET COUNT 147 TH/MM3 (150-450); RED BLOOD COUNT 3.05 MIL/MM3 (4.50-5.90); RED CELL DISTRIBUTION WIDTH 15.7 % (11.6-17.2); WHITE BLOOD COUNT 10.8 TH/MM3 (4.0-11.0)
[2016-12-18 04:50] LABS: HEMO FLAGS AUTO DIFF
[2016-12-18 05:04] LABS: INTERNATIONAL NORMALIZED RATIO 2.1 RATIO; PROTHROMBIN TIME - PATIENT 23.5 SEC (9.8-11.6)
[2016-12-18 05:13] LABS: ALT (GPT) 29 U/L (12-78); ANION GAP 8 MEQ/L (5-15); AST (GOT) 26 U/L (15-37); BICARBONATE 26.4 MEQ/L (21.0-32.0); BLOOD UREA NITROGEN 24 MG/DL (7-18); CHLORIDE 103 MEQ/L (98-107); GLOMERULAR FILTRATION RATE 39 ML/MIN (>89); SODIUM (NA) 137 MEQ/L (136-145)
[2016-12-18 05:17] LABS: ALKALINE PHOSPHATASE 44 U/L (45-117); CREATINE KINASE 116 U/L (39-308); TOTAL BILIRUBIN ADULT 0.5 MG/DL (0.2-1.0)
[2016-12-18 07:44] LABS: BANDS 12 % (0-6); METAMYELOCYTES 1 % (0-1); MYELOCYTES 2 % (0-0); NEUTROPHIL # MANUAL DIFF 9.8 TH/MM3 (1.8-7.7); POLYS (SEG NEUTROPHILS) 76 % (16-70); WBC DIFF SAMPLE 100
[2016-12-18 07:45] LABS: PLATELET ESTIMATE SMEAR LOW (NORMAL); PLATELET MORPHOLOGY NORMAL (NORMAL); SCAN/DIFF FINAL DIFF MANUAL
[2016-12-18] MEDS: SACUBITRIL/VALSARTAN 24 MG-26 MG TAB PO SCH (09:30)
[2016-12-18] MEDS: PREGABALIN 25 MG CAP PO SCH ×3 (09:30→17:32)
[2016-12-18] MEDS: AZITHROMYCIN 250 MG TAB PO SCH (09:30)
[2016-12-18] MEDS: DIGOXIN 0.125 MG TAB PO SCH (09:31)
[2016-12-18] MEDS: DULoxetine HCl DR 60 MG CAP PO SCH (09:31)
[2016-12-18] MEDS: cefTRIAXone INJ 1,000 MG in SODIUM CHLORIDE 0.9% INJ 100 ML IV SCH (09:31)
[2016-12-18] MEDS: ASPIRIN EC 81 MG TABEC PO SCH (09:31)
[2016-12-18] MEDS: METOPROLOL SUCCINATE 50 MG EXTENDED RELEASE TAB PO SCH (09:31)
[2016-12-18] MEDS: AMIODARONE 200 MG TAB PO SCH (09:31)
[2016-12-18] MEDS: SODIUM CHLORIDE 0.9% FLUSH 10 ML FLUSH IV FLUSH SCH ×2 (09:31→21:04)
[2016-12-18] MEDS: PANTOPRAZOLE SOD 40 MG DELAYED RELEASE TAB PO SCH (09:31)
[2016-12-18] MEDS: predniSONE 10 MG TAB PO SCH ×2 (09:31→21:04)
[2016-12-18] MEDS: sulfaSALAzine 500 MG TAB PO SCH ×2 (09:36→18:02)
[2016-12-18] MEDS ORDERED: INFLUENZA VIRUS VACCINE (QUADRIVALENT) 0.5 ML SYR IM ONE (10:00)
[2016-12-18] MEDS: HYDROXYCHLOROQUINE SULFATE 200 MG TAB PO SCH ×2 (10:26→21:04)
--- NOTE | 2016-12-18 12:43 | MB ---
cc: GARCIA ALFONSO M.D. DATE OF CONSULTATION: 12/18/2016. REASON FOR CONSULTATION: Shortness of breath, possible heart failure. HISTORY OF PRESENT ILLNESS: Mr. Munguia is a 66-year-old gentleman with history of congestive heart failure, cardiomyopathy, coronary artery disease, previous cardiac arrest. He had a defibrillator implanted around ten years ago. The generator was replaced in the past years. The gentleman came to the emergency room yesterday due to shortness of breath. Pneumonia versus a heart failure is suspected. IV antibiotic was initiated. I was consulted for further evaluation and management. The chart was reviewed. The patient was evaluated. ALLERGIES: NONE. SOCIAL HISTORY: Negative for smoking and drinking. FAMILY HISTORY: Noncontributory to his current medical condition. MEDICATIONS He is on: 1. Lyrica. 2. Entresto . 3. Voltaren. 4. Ativan. 5. Flexeril. 6. Oxycodone. 7. Toprol XL. 8. Cymbalta. 9. Lasix. 10. . 11. Zantac. 12. Prednisone. 13. Prevacid. 14. Methotrexate. 15. Folic acid. 16. Digoxin. 17. Coumadin. 18. Amiodarone. During the hospitalization, Ceftriaxone and Zithromax were added. REVIEW OF SYSTEMS: Currently he refers feeling better. No chest pain. No chest discomfort. No fever. The shortness of breath is improving. PHYSICAL EXAMINATION: GENERAL: Alert, fully oriented. VITAL SIGNS: His blood pressure is 170/57, pulse 82, respiratory rate 20. LUNGS: Ventilated. CARDIOVASCULAR: S1-S2 regular. No gallop. ABDOMEN: Abdomen soft, no mass. No bruits. EXTREMITIES: With no edema. EKGS: Electrocardiogram shows V pacing. Possible biventricular pacing. LABORATORY DATA: Hemoglobin is 11.2, white blood cell 10.8. Potassium is 4.0, creatinine 1.75. Troponin is 0.12. BNP is 175. INR is 2.1. ASSESSMENT AND RECOMMENDATIONS: Mr. Munguia currently is stable. His BNP is only 175. There is no acute heart failure. He is on optimal medical treatment. He is on Toprol XL as well as Entresto. Since the antibiotic initiated, the gentleman's condition has improved. His anticoagulation is therapeutic. His INR is 2.1. His creatinine is increased to 1.75. His BNP will be repeated again. At this point, my recommendation is: 1. Continue with current medical management. 2. Continue with pneumonia management. 3. I will follow him during the hospitalization. 4. His defibrillator will be interrogated during the hospitalization. Garcia Alfonso MD /CEZAR /11:12 AM /12:34 PM
--- NOTE | 2016-12-18 13:08 | HHI.PR ---
Subjective Remarks No acute events overnight. AVSS. Patient states he is feeling "much better" today. Continues to require supplemental O2. Objective Vitals Vital Signs Date Time Temp Pulse Resp B/P (MAP) Pulse Ox O2 Delivery O2 Flow Rate FiO2 12/18/16 08:04 98.8 73 17 102/59 (73) 94 12/18/16 08:00 75 12/18/16 04:44 Nasal Cannula 2.00 12/18/16 04:00 97.6 82 20 117/57 (77) 93 12/18/16 00:00 Nasal Cannula 2.00 12/18/16 00:00 98.2 78 18 101/50 (67) 93 12/17/16 22:53 Nasal Cannula 2.00 12/17/16 22:51 99.8 81 101/54 (70) 94 12/17/16 20:46 91 12/17/16 18:39 98.6 68 18 100/50 (67) 95 12/17/16 17:04 101.7 86 15 102/43 (62) 94 Nasal Cannula 2.00 12/17/16 16:09 94 Nasal Cannula 2.00 12/17/16 16:07 94 Nasal Cannula 2.00 12/17/16 16:07 94 Nasal Cannula 2.00 12/17/16 16:07 88 20 94 Nasal Cannula 2.00 12/17/16 16:04 100.2 83 17 108/58 (75) 96 I/O 12/17/16 12/17/16 12/17/16 12/18/16 12/18/16 12/18/16 07:00 15:00 23:00 07:00 15:00 23:00 Intake Total 350 ml 2860 ml Balance 350 ml 2860 ml Intake Oral 2860 ml IV Total 350 ml # Voids 2 # Bowel Movements 1 Result Diagram: 12/18/1642912/18/16429 Objective Remarks GENERAL: NAD SKIN: No rashes, ecchymoses or lesions. Cool and dry. HEAD: Atraumatic. Normocephalic. No temporal or scalp tenderness. EYES: Pupils equal round and reactive. Extraocular motions intact. No scleral icterus. No injection or drainage. ENT: Nose without bleeding, purulent drainage or septal hematoma. Throat without erythema, tonsillar hypertrophy or exudate. Uvula midline. Airway patent. NECK: Trachea midline. No JVD or lymphadenopathy. Supple, nontender, no meningeal signs. CARDIOVASCULAR: Regular rate and rhythm without murmurs, gallops, or rubs. RESPIRATORY: Bilateral wheezes GASTROINTESTINAL: Abdomen soft, non-tender, nondistended. No hepato-splenomegaly , or palpable masses. No guarding. MUSCULOSKELETAL: Extremities without clubbing, cyanosis. No joint tenderness, effusion. Trace peripheral edema. No calf tenderness. Negative Homans sign bilaterally. NEUROLOGICAL: Awake and alert. Cranial nerves II through XII intact. Motor and sensory grossly within normal limits. Five out of 5 muscle strength in all muscle groups. Normal speech. A/P Assessment and Plan //Suspected severe Sepsis //Suspected atypical pneumonia. //COPD -Fever 101.7, respiratory rate 20, 9% bands. Lactate is 3 -Spectrum that white count is not elevated due to methotrexate, and heart rate is not elevated due to metoprolol. -Left-sided pneumonia on chest x-ray -Continue Azithro/Rocephin -DuoNebs //CHF //Hypertension //CAD //Atrial fibrillation -BMP in the 170s, no evidence of acute fluid overload. EF previously 15%. Continue home blood pressure medications. Can use digoxin. Cardiology consulted. //Thrombophilia. Factor V Leiden deficiency -INR 1.7. Continue warfarin. //Rheumatoid arthritis. Hold off on methotrexate for now setting of infection. -Continue Plaquenil. Continue sulfasalazine. -Continue chronic steroid. //GERD. Continue PPI. //Acute kidney injury. Creatinine 1.8 from baseline 1.1. -Gentle fluid resuscitation -Started IVFs -Monitor Cr for improvement; monitor for signs of volume overload given cardiac history Discharge Planning Pending continued clinical improvement Haven Hernandez MD Dec 18, 2016 13:08
[2016-12-18] MEDS: SODIUM CHLOR 0.9% 1000 ML INJ 1,000 ML IV SCH (13:44)
[2016-12-18] MEDS: RESP: ALBUTEROL 2.5 MG/IPRATROPIUM 0.5 MG NEB (SCH) NEB ×2 (15:10→19:06)
[2016-12-18] MEDS: WARFARIN SOD 5 MG TAB PO SCH (17:32)
[2016-12-18] MEDS: FOLIC ACID 1 MG TAB PO SCH (18:02)
--- NOTE | 2016-12-18 20:51 | EKG ---
Date Performed: 12/17/2016 Time Performed: 16:15:05 PTAGE: 66 years EKG: ELECTRONIC VENTRICULAR PACEMAKER ABNORMAL RHYTHM ECG PREVIOUS TRACING : 11/04/2016 08.44 DOCTOR: Lulu Antonio Interpretating Date/Time 12/18/2016 20:46:30
[2016-12-19] VITALS (11 sets, daily range): BP systolic 90–127; BP diastolic 44–83; PULSE 71–101; RESP 18–22; TEMP 97.8–98.7; O2SAT 91–94
[2016-12-19] MEDS: RESP: ALBUTEROL 2.5 MG/IPRATROPIUM 0.5 MG NEB (SCH) NEB ×7 (00:58→23:56)
[2016-12-19] MEDS: SODIUM CHLOR 0.9% 1000 ML INJ 1,000 ML IV SCH (01:35)
[2016-12-19] MEDS: sulfaSALAzine 500 MG TAB PO SCH ×3 (04:04→18:34)
[2016-12-19 06:03] LABS: AUTOMATED NEUTROPHIL # 13.5 TH/MM3 (1.8-7.7); BASOPHIL % 0.1 % (0.0-2.0); HEMATOCRIT 30.8 % (39.0-51.0); LYMPH % 5.9 % (9.0-44.0); LYMPHOCYTE # 0.9 TH/MM3 (1.0-4.8); MEAN CELL VOLUME 108.2 FL (80.0-100.0); MEAN CORPUSCULAR HEMOGLOBIN 36.3 PG (27.0-34.0); MEAN CORPUSCULAR HGB CONC 33.6 % (32.0-36.0); MONO % 4.1 % (0.0-8.0); NEUT % 89.9 % (16.0-70.0); PLATELET COUNT 130 TH/MM3 (150-450); RED BLOOD COUNT 2.84 MIL/MM3 (4.50-5.90); RED CELL DISTRIBUTION WIDTH 15.8 % (11.6-17.2)
[2016-12-19 06:05] LABS: HEMO FLAGS AUTO DIFF
[2016-12-19 06:06] LABS: INTERNATIONAL NORMALIZED RATIO 1.5 RATIO; PROTHROMBIN TIME - PATIENT 17.4 SEC (9.8-11.6)
[2016-12-19 06:18] LABS: BICARBONATE 22.5 MEQ/L (21.0-32.0); POTASSIUM 3.9 MEQ/L (3.5-5.1)
[2016-12-19 07:02] LABS: BANDS 9 % (0-6); NEUTROPHIL # MANUAL DIFF 14.7 TH/MM3 (1.8-7.7); PLATELET ESTIMATE SMEAR LOW (NORMAL); POLYS (SEG NEUTROPHILS) 89 % (16-70); WBC DIFF SAMPLE 100
[2016-12-19 07:03] LABS: PLATELET MORPHOLOGY NORMAL (NORMAL)
[2016-12-19 07:04] LABS: SCAN/DIFF FINAL DIFF MANUAL
[2016-12-19] MEDS: cefTRIAXone INJ 1,000 MG in SODIUM CHLORIDE 0.9% INJ 100 ML IV SCH (07:56)
[2016-12-19] MEDS: METOPROLOL SUCCINATE 50 MG EXTENDED RELEASE TAB PO SCH (07:57)
[2016-12-19] MEDS: DIGOXIN 0.125 MG TAB PO SCH (07:57)
[2016-12-19] MEDS: PANTOPRAZOLE SOD 40 MG DELAYED RELEASE TAB PO SCH (07:57)
[2016-12-19] MEDS: AMIODARONE 200 MG TAB PO SCH (07:57)
[2016-12-19] MEDS: PREGABALIN 25 MG CAP PO SCH ×3 (07:57→18:35)
[2016-12-19] MEDS: AZITHROMYCIN 250 MG TAB PO SCH (07:58)
[2016-12-19] MEDS: HYDROXYCHLOROQUINE SULFATE 200 MG TAB PO SCH ×2 (07:58→21:07)
[2016-12-19] MEDS: DULoxetine HCl DR 60 MG CAP PO SCH (07:58)
[2016-12-19] MEDS: predniSONE 10 MG TAB PO SCH ×2 (07:58→21:06)
[2016-12-19] MEDS: ASPIRIN EC 81 MG TABEC PO SCH (07:58)
[2016-12-19] MEDS: SACUBITRIL/VALSARTAN 24 MG-26 MG TAB PO SCH (07:58)
[2016-12-19] MEDS: SODIUM CHLORIDE 0.9% FLUSH 10 ML FLUSH IV FLUSH SCH ×2 (07:59→21:08)
--- NOTE | 2016-12-19 10:17 | PD.CONS ---
Consult Service Palliative Care Consult Requested By Dr. Foster Primary Care Physician Serg Arreaga M.D. Reason for Consultation a. To assist with evaluation and management of symptoms including: shortness of breath, pain, debility b. To assist medical decision maker(s) with: better understanding of current medical conditions; weighing benefits/burdens of medical treatment options; making medical treatment decisions. HPI History of Present Illness Mr. Mcgraw is a 66 years old male with a past medical history of ischemic cardiomyopathy, cardiac arrest, CHF, AICD/pacemaker, rheumatoid arthritis, GERD , CAD with stenting, viral hepatitis, factor V Leiden deficiency. Patient had a cardiac cath 2 months ago which revealed and EF of 15%. Patient presented to the ER on 12/17/16 complaining of shortness of breath, fever, a productive cough and generalized fatigue for 2 days. Chest x-ray revealed interval development of patchy airspace infiltrates in the left upper and left lower lung. Head CT was negative for any acute findings and showed age-appropriate atrophy. EKG revealed electronic ventricular paced at a rate of 80. Laboratory workup revealed WBC 9.6, hemoglobin 12.5 hematocrit 36.5, platelet count 158, lactic acid 3.0, troponin 0.16, PT 19.1, INR 1.7, APTT 46.2. Nasal wash negative for Flu A & B antigen. Patient admitted for further treatment and evaluation. Cardiology consulted evaluation and management. Palliative care consulted to assist with goals of care. Patient seen in his room awake, listening to music. No signs of respiratory distress noted.Patient alert, and oriented to person, place and situation. Patient complaining of arthritic pain to his arms and rates it 4-5/10. Despite his chronic pain, patient states that he feels much better than he did when he came to the hospital. Patient is afebrile. SBP low 100s. O2 Sat low 90s on O2 2L NC. PT following, recommended home health PT. Discussed patient`s overall medica status and code status. Patient seems to have a good understanding of his medical condition, as well as symptom burden. Patient endorses progressive decline, and increased fatigue. Patient verbalizes that he spends most of the time sleeping during the day and has a difficult time sleeping at night. Patient states that he now realizes that he gets easily tired and will probably need oxygen at home. When asked about code status, patient verbalizes that he would not want anyone doing heroic measures only to leaving him as a " vegetable". He stated that he leaves the decision to his whom he trusts that she will make a decision to the best of his interest. Patient states that he knows he is sick and he will at some point. Patient deferred code status discussion to his . Brief telephone conversation with patient`s Vicky Mcgraw. 1425hrs. Meeting with patient`s Vicky who is his DPOA, HCS , patient`s sister, and brother in law at bedside. Family verbalized that they have been noticing patient`s progressive decline over the past months. Patient spends more time sleeping and tires easily now. Patient requires assistance with some of his ADLs due to fatigue and pain. Discussed code status, patient verbalized in front of his family that he wants to be a DNR and would not like anyone performing CPR on him or having to have a "tube in his throat or be connected to a machine". Patient verbalizes that he is "tired of being sick". Hospice philosophy and benefits introduced and both patient and requested hospice consult. Case discussed with Dr. Topete. Function/Cognitive Trajectory Patient states that he is independent in all his ADLs although he requires assistance from his sometimes with cutting up food for him and assistance with bathing due to fatigue and arthritic pain. Patient states that he has had increased weakness the last couple of days prior to admission and has had several falls. . Review of Systems Constitutional: COMPLAINS OF: Fatigue, Fever, Generalized weakness Eyes: DENIES: Eye inflammation Ears, nose, mouth, throat: DENIES: Hearing loss Respiratory: COMPLAINS OF: Cough, Sputum production, Shortness of breath Cardiovascular: DENIES: Chest pain Gastrointestinal: DENIES: Diarrhea Musculoskeletal: COMPLAINS OF: Joint pain, Muscle aches, Decreased range of motion Integumentary: DENIES: Rash Neurologic: DENIES: Localized weakness Past Family Social History Coded Allergies: No Known Allergies (Verified , 11/01/16) Past Medical History Cardiac arrest AICD CHF AFIB ME Factor 5 Leiden deficiency with 3 PEs at one time COPD Viral hepatitis 40 years ago Rheumatoid arthritis . Past Surgical History AICD-GUIDANT Pacemaker-Versly N119 19 1899 Cardiac stents x 2 Bilateral shoulder repair Bilateral knee repair Right Hip replacement . Reported Medications Coumadin (Warfarin) 5 Mg Tab 5 Mg PO DAILY@1600 Amiodarone (Amiodarone HCl) 200 Mg Tab 400 Mg PO DAILY 30 Days Lyrica (Pregabalin) 50 Mg Cap 50 Mg PO TID Entresto (Sacubitril-Valsartan) 24-26 Mg Tab 1 Tab PO DAILY Voltaren (Diclofenac Sodium) 1 % Gel..gram. 1 Applic TOPICAL DAILY PRN Ativan (Lorazepam) 1 Mg Tab 1 Mg PO BID PRN Flexeril (Cyclobenzaprine HCl) 10 Mg Tab 10 Mg PO BID PRN Oxycodone (Oxycodone HCl) 30 Mg Tab 30 Mg PO Q6HR PRN Toprol XL (Metoprolol Succinate) 50 Mg Tab 50 Mg PO DAILY Cymbalta DR (Duloxetine HCl) 60 Mg Capdr 60 Mg PO DAILY Lasix (Furosemide) 80 Mg Tab 80 Mg PO DAILY PRN Sulfasalazine 500 Mg Tab 500 Mg PO Q8H Zantac (Ranitidine HCl) 150 Mg Tab 150 Mg PO BID Plaquenil (Hydroxychloroquine Sulfate) 200 Mg Tab 200 Mg PO BID Prednisone 10 Mg Tab 10 Mg PO BID Prevacid (Lansoprazole) 30 Mg Capdr 30 Mg PO DAILY Methotrexate 2.5 Mg Tab 25 Mg PO MONDAY Klor-Con M20 (Potassium Chloride Microencaps) 20 Meq Tab 20 Meq PO DAILY PRN Folic Acid 1 Mg Tablet 1 Mg PO SUMOWETHFRSA Lanoxin (Digoxin) 125 Mcg Tablet 125 Mcg PO DAILY Aspirin Adult Low Strength (Aspirin) 81 Mg Tabdr 81 Mg PO DAILY . Current Medications Medications (Trade) Dose Ordered Sig/[place]on Route Start Time Stop Time Status Last Admin (NS Flush) 2 ml UNSCH PRN IVF 12/17/16 16:15 (Cordarone) 200 mg DAILY PO 12/18/16 09:00 12/19/16 07:57 (Ecotrin Ec) 81 mg DAILY PO 12/18/16 09:00 12/19/16 07:58 (Lanoxin) 0.125 mg DAILY PO 12/18/16 09:00 12/19/16 07:57 (Cymbalta Dr) 60 mg DAILY PO 12/18/16 09:00 12/19/16 07:58 (Folate) 1 mg [id number] PO 12/17/16 19:00 12/18/16 18:02 (Plaquenil) 200 mg BID PO 12/17/16 21:00 12/19/16 07:58 (Toprol Xl) 50 mg DAILY PO 12/18/16 09:00 (Deltasone) 10 mg BID PO 12/17/16 21:00 12/19/16 07:58 (Lyrica) 50 mg TID PO 12/18/16 09:00 12/19/16 07:57 (Entresto 24-26 Mg) 1 tab DAILY PO 12/18/16 09:00 12/19/16 07:58 (Azulfidine) 500 mg Q8H PO 12/17/16 19:00 12/19/16 04:04 (Coumadin) 5 mg DAILY@1600 PO 12/18/16 16:00 12/18/16 17:32 (Protonix) 40 mg DAILY PO 12/18/16 09:00 12/19/16 07:57 Ceftriaxone Sodium 1000 mg/ Sodium Chloride 100 ml @ 200 mls/hr Q24H IV 12/18/16 09:00 12/19/16 07:56 (Zithromax) 250 mg DAILY PO 12/18/16 09:00 12/19/16 07:58 (NS Flush) 2 ml UNSCH PRN IV FLUSH 12/17/16 18:15 (NS Flush) 2 ml BID IV FLUSH 12/17/16 21:00 12/18/16 21:04 (Zofran Inj) 4 mg Q6H PRN IVP 12/17/16 18:15 12/18/16 13:54 (Narcan Inj) 0.4 mg UNSCH PRN IV PUSH 12/17/16 18:15 (Milk Of Magnesia Liq) 30 ml Q12H PRN PO 12/17/16 18:15 (Senokot) 17.2 mg Q12H PRN PO 12/17/16 18:15 (Dulcolax Supp) 10 mg DAILY PRN RECTAL 12/17/16 18:15 (Lactulose Liq) 30 ml DAILY PRN PO 12/17/16 18:15 Pharmacy Profile Note 0 ml @ 0 mls/hr UNSCH OTHER 12/17/16 20:00 (Roxicodone) 30 mg Q6HR PRN PO 12/17/16 21:45 12/19/16 07:58 (Du[place]ola Neb) 1 ampule Q4HR NEB NEB 12/18/16 16:00 12/19/16 07:52 Sodium Chloride 1,000 ml @ 84 mls/hr [id number] IV 12/18/16 13:00 12/19/16 01:35 Family History Father from heart disease in his 80s. Mother passed way from stroke in her 80s. . Substance Use Tobacco: Denies Alcohol: Yes, occasional Prescription med abuse: Denies Illicits: Denies . Psychosocial History Patient was born in [place], [place]. He moved to [place] 10 years ago. Patient has been twice. He`s currently to his Vicky Mcgraw of 20 years. Patient has 2 biological sons and 1 step-son. Patient graduated from college with a Business administration degree. Patient has worked for [employer] in [employer]. He is now retired. . Spiritual/Cultural Factors Patient is Buddhism . Living Will: Copy in medical record Health Care Surrogate: Copy in medical record Durable Power of Film Casting Operator: Copy in medical record Date completed: [facility]- June 21, 2005 DPOA-June 21, 2005 Living Will-June 21, 2005 . Health Care Surrogate(s): HCS- - Vicky MartinezIgnacio Mcgraw Alternate [facility]- Son - Blake Gaticaean Documented care wishes: Standard verbiage. . Family/friends goals: Patient and patient `s family ( and sister) seeking comfort care. . Ethical and Legal Issues None identified at this time . . Physical Exam Vital Signs Date Time Temp Pulse Resp B/P (MAP) Pulse Ox O2 Delivery O2 Flow Rate FiO2 12/19/16 07:56 91 Nasal Cannula 3.00 12/19/16 04:00 Nasal Cannula 2.00 12/19/16 04:00 98.1 73 19 119/55 (76) 94 12/19/16 01:01 92 Nasal Cannula 2.00 12/19/16 00:00 98.1 71 19 100/53 (69) 94 12/19/16 00:00 Nasal Cannula 2.00 12/18/16 20:14 89 12/18/16 20:00 97.7 71 19 94/50 (65) 94 12/18/16 20:00 Nasal Cannula 2.00 12/18/16 16:04 98.1 74 17 106/62 (77) 92 12/18/16 15:10 91 Nasal Cannula 2.00 12/18/16 13:25 94 Nasal Cannula 2.00 12/18/16 12:04 98.4 75 17 105/60 (75) 91 Exam CONSTITUTIONAL/GENERAL: This is an adequately nourished patient in mild respiratory distress, dyspneic with conversation. Arthritic pain 4-5/10 TUBES/LINES/DRAINS:PIV SKIN: No jaundice. Face appears flushed. No wounds seen anteriorly. Skin temperature appropriate. Not diaphoretic. HEAD: Atraumatic. Normocephalic. EYES: Pupils equal and round and reactive. Extraocular motions intact. No scleral icterus. No injection or drainage. Fundi not examined. ENT: Hearing grossly normal. Nose without bleeding or purulent drainage. Moist oral mucosa. NECK: Trachea midline. Supple, nontender. CARDIOVASCULAR: Regular rate and rhythm without murmurs, gallops, or rubs. No JVD. RESPIRATORY/CHEST: Symmetric, unlabored respirations. Diminished in the bases with expiratory wheezes. No rales, or rhonchi. GASTROINTESTINAL: Abdomen soft, non-tender, nondistended. No guarding. Bowel sounds present. GENITOURINARY: Without palpable bladder distension. MUSCULOSKELETAL: Extremities without clubbing, cyanosis, or edema. No calf tenderness. No mottling or clubbing. Pain to arms and joints. NEUROLOGICAL: Awake and alert and oriented to person, place and time. Motor and sensory grossly within normal limits. Follows commands. Cognitively sharp. Moves all extremities. PSYCHIATRIC: No obvious anxiety/depression. no apparent hallucinations or other psychotic thought process. . Diagnostic Tests Laboratory Laboratory Tests Test 12/17/16 16:15 12/17/16 16:45 12/17/16 20:58 12/17/16 21:12 White Blood Count 9.6 TH/MM3 (4.0-11.0) Red Blood Count 3.41 MIL/MM3 (4.50-5.90) Hemoglobin 12.5 GM/DL (13.0-17.0) Hematocrit 36.5 % (39.0-51.0) Mean Corpuscular Volume 107.2 FL (80.0-100.0) Mean Corpuscular Hemoglobin 36.8 PG (27.0-34.0) Mean Corpuscular Hemoglobin Concent 34.3 % (32.0-36.0) Red Cell Distribution Width 16.2 % (11.6-17.2) Platelet Count 158 TH/MM3 (150-450) Mean Platelet Volume 9.8 FL (7.0-11.0) Neutrophils (%) (Auto) 77.3 % (16.0-70.0) Lymphocytes (%) (Auto) 18.2 % (9.0-44.0) Monocytes (%) (Auto) 3.5 % (0.0-8.0) Eosinophils (%) (Auto) 0.8 % (0.0-4.0) Basophils (%) (Auto) 0.2 % (0.0-2.0) Neutrophils # (Auto) 7.4 TH/MM3 (1.8-7.7) Lymphocytes # (Auto) 1.7 TH/MM3 (1.0-4.8) Monocytes # (Auto) 0.3 TH/MM3 (0-0.9) Eosinophils # (Auto) 0.1 TH/MM3 (0-0.4) Basophils # (Auto) 0.0 TH/MM3 (0-0.2) CBC Comment AUTO DIFF Differential Total Cells Counted 100 Neutrophils % (Manual) 69 % (16-70) Band Neutrophils % 9 % (0-6) Lymphocytes % 17 % (9-44) Monocytes % 4 % (0-8) Eosinophils % 1 % (0-4) Neutrophils # (Manual) 7.5 TH/MM3 (1.8-7.7) Differential Comment FINAL DIFF MANUAL Toxic Granulation 1+ (NORMAL) Platelet Estimate NORMAL (NORMAL) Platelet Morphology Comment ENLARGED (NORMAL) Prothrombin Time 19.1 SEC (9.8-11.6) Prothromb Time International Ratio 1.7 RATIO Activated Partial Thromboplast Time 46.2 SEC (24.3-30.1) Blood Urea Nitrogen 26 MG/DL (7-18) Creatinine 1.78 MG/DL (0.60-1.30) Random Glucose 83 MG/DL (74-106) Total Protein 5.6 GM/DL (6.4-8.2) Albumin 2.1 GM/DL (3.4-5.0) Calcium Level 8.3 MG/DL (8.5-10.1) Alkaline Phosphatase 42 U/L (45-117) Aspartate Amino Transf (AST/SGOT) 20 U/L (15-37) Alanine Aminotransferase (ALT/SGPT) 26 U/L (12-78) Total Bilirubin 0.5 MG/DL (0.2-1.0) Sodium Level 139 MEQ/L (136-145) Potassium Level 3.3 MEQ/L (3.5-5.1) Chloride Level 104 MEQ/L (98-107) Carbon Dioxide Level 25.9 MEQ/L (21.0-32.0) Anion Gap 9 MEQ/L (5-15) Estimat Glomerular Filtration Rate 38 ML/MIN (>89) Total Creatine Kinase 98 U/L (39-308) 128 U/L (39-308) Troponin I 0.19 NG/ML (0.02-0.05) 0.16 NG/ML (0.02-0.05) B-Type Natriuretic Peptide 175 PG/ML (0-100) Digoxin Level 0.6 NG/ML (0.8-2.0) Lactic Acid Level 3.0 mmol/L (0.4-2.0) 2.0 mmol/L (0.4-2.0) Test 12/18/16 04:30 12/19/16 05:23 White Blood Count 10.8 TH/MM3 (4.0-11.0) 15.0 TH/MM3 (4.0-11.0) Red Blood Count 3.05 MIL/MM3 (4.50-5.90) 2.84 MIL/MM3 (4.50-5.90) Hemoglobin 11.2 GM/DL (13.0-17.0) 10.3 GM/DL (13.0-17.0) Hematocrit 32.9 % (39.0-51.0) 30.8 % (39.0-51.0) Mean Corpuscular Volume 107.8 FL (80.0-100.0) 108.2 FL (80.0-100.0) Mean Corpuscular Hemoglobin 36.6 PG (27.0-34.0) 36.3 PG (27.0-34.0) Mean Corpuscular Hemoglobin Concent 34.0 % (32.0-36.0) 33.6 % (32.0-36.0) Red Cell Distribution Width 15.7 % (11.6-17.2) 15.8 % (11.6-17.2) Platelet Count 147 TH/MM3 (150-450) 130 TH/MM3 (150-450) Mean Platelet Volume 9.8 FL (7.0-11.0) 9.9 FL (7.0-11.0) Neutrophils (%) (Auto) 87.6 % (16.0-70.0) 89.9 % (16.0-70.0) Lymphocytes (%) (Auto) 7.0 % (9.0-44.0) 5.9 % (9.0-44.0) Monocytes (%) (Auto) 4.9 % (0.0-8.0) 4.1 % (0.0-8.0) Eosinophils (%) (Auto) 0.4 % (0.0-4.0) 0.0 % (0.0-4.0) Basophils (%) (Auto) 0.1 % (0.0-2.0) 0.1 % (0.0-2.0) Neutrophils # (Auto) 9.5 TH/MM3 (1.8-7.7) 13.5 TH/MM3 (1.8-7.7) Lymphocytes # (Auto) 0.8 TH/MM3 (1.0-4.8) 0.9 TH/MM3 (1.0-4.8) Monocytes # (Auto) 0.5 TH/MM3 (0-0.9) 0.6 TH/MM3 (0-0.9) Eosinophils # (Auto) 0.0 TH/MM3 (0-0.4) 0.0 TH/MM3 (0-0.4) Basophils # (Auto) 0.0 TH/MM3 (0-0.2) 0.0 TH/MM3 (0-0.2) CBC Comment AUTO DIFF AUTO DIFF Differential Total Cells Counted 100 100 Neutrophils % (Manual) 76 % (16-70) 89 % (16-70) Band Neutrophils % 12 % (0-6) 9 % (0-6) Lymphocytes % 7 % (9-44) 2 % (9-44) Monocytes % 2 % (0-8) Neutrophils # (Manual) 9.8 TH/MM3 (1.8-7.7) 14.7 TH/MM3 (1.8-7.7) Metamyelocytes 1 % (0-1) Myelocytes 2 % (0-0) Differential Comment FINAL DIFF MANUAL FINAL DIFF MANUAL Platelet Estimate LOW (NORMAL) LOW (NORMAL) Platelet Morphology Comment NORMAL (NORMAL) NORMAL (NORMAL) Prothrombin Time 23.5 SEC (9.8-11.6) 17.4 SEC (9.8-11.6) Prothromb Time International Ratio 2.1 RATIO 1.5 RATIO Blood Urea Nitrogen 24 MG/DL (7-18) 20 MG/DL (7-18) Creatinine 1.75 MG/DL (0.60-1.30) 1.39 MG/DL (0.60-1.30) Random Glucose 147 MG/DL (74-106) 170 MG/DL (74-106) Total Protein 5.4 GM/DL (6.4-8.2) Albumin 2.0 GM/DL (3.4-5.0) Calcium Level 8.0 MG/DL (8.5-10.1) 7.8 MG/DL (8.5-10.1) Alkaline Phosphatase 44 U/L (45-117) Aspartate Amino Transf (AST/SGOT) 26 U/L (15-37) Alanine Aminotransferase (ALT/SGPT) 29 U/L (12-78) Total Bilirubin 0.5 MG/DL (0.2-1.0) Sodium Level 137 MEQ/L (136-145) 134 MEQ/L (136-145) Potassium Level 4.0 MEQ/L (3.5-5.1) 3.9 MEQ/L (3.5-5.1) Chloride Level 103 MEQ/L (98-107) 102 MEQ/L (98-107) Carbon Dioxide Level 26.4 MEQ/L (21.0-32.0) 22.5 MEQ/L (21.0-32.0) Anion Gap 8 MEQ/L (5-15) 10 MEQ/L (5-15) Estimat Glomerular Filtration Rate 39 ML/MIN (>89) 51 ML/MIN (>89) Total Creatine Kinase 116 U/L (39-308) Troponin I 0.12 NG/ML (0.02-0.05) Result Diagram: 12/19/16 0523 12/19/16 0523 Microbiology Microbiology Date/Time Source Procedure Growth Status 12/17/16 16:45 Blood Peripheral Aerobic Blood Culture - Preliminary NO GROWTH IN 1 DAY Resulted 12/17/16 16:45 Blood Peripheral Anaerobic Blood Culture - Preliminary NO GROWTH IN 1 DAY Resulted 12/17/16 16:40 Blood Peripheral Aerobic Blood Culture - Preliminary NO GROWTH IN 1 DAY Resulted 12/17/16 16:40 Blood Peripheral Anaerobic Blood Culture - Preliminary NO GROWTH IN 1 DAY Resulted 12/17/16 16:20 Nasal Washing Influenza Types A,B Antigen (LARY) - Final NEGATIVE FOR FLU A AND B ANTIGEN.... Complete Imaging Last Impressions Chest X-Ray 12/17/16 1612 Signed Impressions: Service Date/Time: Saturday, December 17, 2016 16:13 - CONCLUSION: Interval development of patchy airspace infiltrates in the left upper and left lower lung. Nii Griggs MD Head CT 12/17/16 0000 Signed Impressions: Service Date/Time: Saturday, December 17, 2016 17:45 - CONCLUSION: No acute findings. Age-appropriate atrophy. Nii Griggs MD Patient/Family Conference Family Conference Location: Bedside (at bedside with , patient`s sister.) Issues Discussed: * Palliative care role, purpose, approach * Additional medical, psychosocial, and spiritual history * Patients general health, functional status, and cognitive changes in the months leading up to the current hospitalization * Patient/family understanding of the current medical problems * Patient/family understanding of prognosis * Patients goals of care as best understood from advance directives and/or conversations and/or values * Current medical treatment options and benefits/burdens of those options * Likely scenarios comparing ongoing aggressive care with a transition to comfort measures only * Questions answered to the best of my ability * Hospice philosophy and benefits introduced * Palliative care contact information provided Assessment and Plan Disease Oriented Problem List: (1) Pneumonia (2) Coronary artery disease (3) Ischemic cardiomyopathy Symptom Scale: (1) Debility 0-10 Scale: Unable to quantify (2) Shortness of breath 0-10 Scale: Unable to quantify (3) Pain 0-10 Scale: 5 (Patient has a hx of rheumatoid arthritis. Pain level at rest 4-5 /10.) Pertinent Non-Medical Issues Psychosocial:Patient was born in [place], [place]. He moved to [place] 10 years ago. Patient has been twice. He`s currently to his Vicky Mcgraw of 20 years. Patient has 2 biological sons and 1 step-son. Patient graduated from college with a Business administration degree. 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 Spiritual: Patient is Legal: Patient has DPOA, HCS, and HCS signed and on EMR Ethical issues impacting care:None identified at this time. Important Contacts - Vicky Mcgraw [phone] home; [phone] other /work Son- Blake Mcgraw- [phone] . Prognosis Mr. Mcgraw is a 66 years old male with a past medical history of ischemic cardiomyopathy, cardiac arrest, CHF, AICD,pacemaker, rheumatoid arthritis, GERD , CAD with stenting, factor V Leiden deficiency. Patient had a cardiac cath 2 months ago which revealed and EF of 15%. Patient presented to the ER on complaining of shortness of breath, fever, a productive cough and generalized fatigue for 2 days. Given multiple comorbidities and current ongoing increased symptom burden, patient remains at high risk for further complications and decline. . Code Status: No Code Plan PLAN: Legal decision maker: Patient is able to participate in his own medical decision making. In the event that patient is incapacitated to make his own medical decision, his healthcare surrogate is his Vicky Love and his alternate surrogate is his son Blake Mcgraw. Goals: Patient made himself a DNR, requested hospice consultation and his who is his HCS, is supportive of his decisions. CODE STATUS: DNR SYMPTOMS: * Shortness of breath: Patient c/o increased shortness breath. Dyspneic with conversation. Patient is not on home O2. O2 saturation low 90s on O2 2L NC. Patient on Duonebs q 4 hours. Patient may need home oxygen at home. * Pain: Patient has a history rheumatoid arthritis. c/o neuropathic pain to his lower extremities. Patient c/o pain to joints 4-5/10 on bedrest. Patient verbalizing that his pain is exacerbated with activity. Patient on Lyrica 50mg TID and Oxycodone 30mg q 6 hours prn * Debility: Multifactorial. Patient has been progressively declining over the past couple months. Has had increased fatigue, spends more time sleeping during the day. Patient requires assistance with ADLs like bathing sometimes. Gets dyspneic with activity. Patient will most likely continue to physically decline. PT following. Palliative care will continue to follow the patient during hospital course as condition evolves, to assist patient/decision-maker with understanding of their medical conditions, weighing benefits/burdens of treatment options, for clarification of goals of treatment. Additionally will assist with any symptoms of palliative concern. . Thank you for the opportunity to participate in the care of Mr. Mcgraw. Attestation To help prompt me to consider important information that might be impacting today's encounter and assessment, information from prior notes written by myself or my colleagues may have been "brought forward" into today's note. My signature on this note, however, is an attestation that I personally performed the exam, history, and/or decision-making noted today, and, unless otherwise indicated, the interactions with patient, family, and staff as well as the review of records all occurred today. I also attest that the listed assessment and stated plan reflect my best clinical judgment today based on the combination of historical information, prior notes, and today's exam/ interactions. When time spent is documented, it refers only to time spent today by the signer, or if indicated, combined time spent today by collaborating physician/nurse practitioner. . Nik Barker Dec 19, 2016 10:17
--- NOTE | 2016-12-19 11:36 | PD.CARD.PN ---
Subjective Subjective Remarks Feeling much better Objective Medications Current Medications Medications (Trade) Dose Ordered Sig/[place] Route Start Time Stop Time Status Last Admin (NS Flush) 2 ml UNSCH PRN IVF 12/17/16 16:15 (Cordarone) 200 mg DAILY PO 12/18/16 09:00 12/19/16 07:57 (Ecotrin Ec) 81 mg DAILY PO 12/18/16 09:00 12/19/16 07:58 (Lanoxin) 0.125 mg DAILY PO 12/18/16 09:00 12/19/16 07:57 (Cymbalta Dr) 60 mg DAILY PO 12/18/16 09:00 12/19/16 07:58 (Folate) 1 mg [id number] PO 12/17/16 19:00 12/18/16 18:02 (Plaquenil) 200 mg BID PO 12/17/16 21:00 12/19/16 07:58 (Toprol Xl) 50 mg DAILY PO 12/18/16 09:00 (Deltasone) 10 mg BID PO 12/17/16 21:00 12/19/16 07:58 (Lyrica) 50 mg TID PO 12/18/16 09:00 12/19/16 07:57 (Entresto 24-26 Mg) 1 tab DAILY PO 12/18/16 09:00 12/19/16 07:58 (Azulfidine) 500 mg Q8H PO 12/17/16 19:00 12/19/16 10:15 (Coumadin) 5 mg DAILY@1600 PO 12/18/16 16:00 12/18/16 17:32 (Protonix) 40 mg DAILY PO 12/18/16 09:00 12/19/16 07:57 Ceftriaxone Sodium 1000 mg/ Sodium Chloride 100 ml @ 200 mls/hr Q24H IV 12/18/16 09:00 12/19/16 07:56 (Zithromax) 250 mg DAILY PO 12/18/16 09:00 12/19/16 07:58 (NS Flush) 2 ml UNSCH PRN IV FLUSH 12/17/16 18:15 (NS Flush) 2 ml BID IV FLUSH 12/17/16 21:00 12/18/16 21:04 (Zofran Inj) 4 mg Q6H PRN IVP 12/17/16 18:15 10/29/17 13:54 (Narcan Inj) 0.4 mg UNSCH PRN IV PUSH 12/17/16 18:15 (Milk Of Magnesia Liq) 30 ml Q12H PRN PO 12/17/16 18:15 (Senokot) 17.2 mg Q12H PRN PO 12/17/16 18:15 (Dulcolax Supp) 10 mg DAILY PRN RECTAL 12/17/16 18:15 (Lactulose Liq) 30 ml DAILY PRN PO 12/17/16 18:15 Pharmacy Profile Note 0 ml @ 0 mls/hr UNSCH OTHER 12/17/16 20:00 (Roxicodone) 30 mg Q6HR PRN PO 12/17/16 21:45 12/19/16 07:58 (Duoneb Neb) 1 ampule Q4HR NEB NEB 12/18/16 16:00 12/19/16 07:52 Sodium Chloride 1,000 ml @ 84 mls/hr [id number] IV 12/18/16 13:00 12/19/16 01:35 Vital Signs / I&O Vital Signs Date Time Temp Pulse Resp B/P (MAP) Pulse Ox O2 Delivery O2 Flow Rate FiO2 12/19/16 08:15 81 12/19/16 08:00 Nasal Cannula 2.00 12/19/16 07:56 91 Nasal Cannula 3.00 12/19/16 04:00 Nasal Cannula 2.00 12/19/16 04:00 98.1 73 19 119/55 (76) 94 12/19/16 01:01 92 Nasal Cannula 2.00 12/19/16 00:00 98.1 71 19 100/53 (69) 94 12/19/16 00:00 Nasal Cannula 2.00 12/18/16 20:14 89 12/18/16 20:00 97.7 71 19 94/50 (65) 94 12/18/16 20:00 Nasal Cannula 2.00 12/18/16 16:04 98.1 74 17 106/62 (77) 92 12/18/16 15:10 91 Nasal Cannula 2.00 12/18/16 13:25 94 Nasal Cannula 2.00 12/18/16 12:04 98.4 75 17 105/60 (75) 91 I/O 12/18/16 12/18/16 12/18/16 12/19/16 12/19/16 12/19/16 07:00 15:00 23:00 07:00 15:00 23:00 Intake Total 2860 ml 520 ml 1240 ml Balance 2860 ml 520 ml 1240 ml Intake Oral 2860 ml 520 ml 240 ml IV Total 1000 ml # Voids 2 4 2 # Bowel Movements 1 1 Physical Exam Alert Chest Clear CV [id number] with soft S3 No edema Laboratory Laboratory Tests Test 12/19/16 05:23 White Blood Count 15.0 TH/MM3 Red Blood Count 2.84 MIL/MM3 Hemoglobin 10.3 GM/DL Hematocrit 30.8 % Mean Corpuscular Volume 108.2 FL Mean Corpuscular Hemoglobin 36.3 PG Mean Corpuscular Hemoglobin Concent 33.6 % Red Cell Distribution Width 15.8 % Platelet Count 130 TH/MM3 Mean Platelet Volume 9.9 FL Neutrophils (%) (Auto) 89.9 % Lymphocytes (%) (Auto) 5.9 % Monocytes (%) (Auto) 4.1 % Eosinophils (%) (Auto) 0.0 % Basophils (%) (Auto) 0.1 % Neutrophils # (Auto) 13.5 TH/MM3 Lymphocytes # (Auto) 0.9 TH/MM3 Monocytes # (Auto) 0.6 TH/MM3 Eosinophils # (Auto) 0.0 TH/MM3 Basophils # (Auto) 0.0 TH/MM3 CBC Comment AUTO DIFF Differential Total Cells Counted 100 Neutrophils % (Manual) 89 % Band Neutrophils % 9 % Lymphocytes % 2 % Neutrophils # (Manual) 14.7 TH/MM3 Differential Comment FINAL DIFF MANUAL Platelet Estimate LOW Platelet Morphology Comment NORMAL Prothrombin Time 17.4 SEC Prothromb Time International Ratio 1.5 RATIO Blood Urea Nitrogen 20 MG/DL Creatinine 1.39 MG/DL Random Glucose 170 MG/DL Calcium Level 7.8 MG/DL Sodium Level 134 MEQ/L Potassium Level 3.9 MEQ/L Chloride Level 102 MEQ/L Carbon Dioxide Level 22.5 MEQ/L Anion Gap 10 MEQ/L Estimat Glomerular Filtration Rate 51 ML/MIN Assessment and Plan Problem List: (1) Ischemic cardiomyopathy ICD Codes: I25.5 - Ischemic cardiomyopathy Status: Chronic (2) Elevated troponin ICD Codes: R74.8 - Abnormal levels of other serum enzymes Status: Acute Plan: doubt DE (3) Coronary artery disease ICD Codes: I25.10 - Atherosclerotic heart disease of [place] coronary artery without angina pectoris Plan: Stable Assessment and Plan He is requesting home O2 at discharge Keith Dukes MD Dec 19, 2016 11:36
[2016-12-19] MEDS ORDERED: OXYGENDME NAS.CANULA (12:04)
--- NOTE | 2016-12-19 12:05 | HHI.FF ---
Face to Face Verification Diagnosis: (1) PNA (pneumonia) (2) Hypoxia (3) CHF (congestive heart failure) Home Health Nursing Order: Oxygen administration education Nursing assessment with vital signs I have seen patient Blake Mcgraw on 12/19/16. My clinical findings support the need for the requested home health care services because: Patient was evaluated by PT while in the hospital and they recommend home health PT Patient has SOB Limited ability to care for self I certify that my clinical findings support that this patient is homebound because: Patient was evaluated by PT while in the hospital and they recommend home health PT Unsteady gait/balance Jimena Topete MD Dec 19, 2016 12:05
--- NOTE | 2016-12-19 12:17 | HHI.PR ---
Subjective Remarks Pt states that he is feeling a lot better. Has some cough, still requiring oxygen and would like to have home oxygen. denies any CP/N/V Objective Vitals Vital Signs Date Time Temp Pulse Resp B/P (MAP) Pulse Ox O2 Delivery O2 Flow Rate FiO2 12/19/16 12:00 3.00 12/19/16 08:15 81 12/19/16 08:00 Nasal Cannula 2.00 12/19/16 07:56 91 Nasal Cannula 3.00 12/19/16 04:00 Nasal Cannula 2.00 12/19/16 04:00 98.1 73 19 119/55 (76) 94 12/19/16 01:01 92 Nasal Cannula 2.00 12/19/16 00:00 98.1 71 19 100/53 (69) 94 12/19/16 00:00 Nasal Cannula 2.00 12/18/16 20:14 89 12/18/16 20:00 97.7 71 19 94/50 (65) 94 12/18/16 20:00 Nasal Cannula 2.00 12/18/16 16:04 98.1 74 17 106/62 (77) 92 12/18/16 15:10 91 Nasal Cannula 2.00 12/18/16 13:25 94 Nasal Cannula 2.00 I/O 12/18/16 12/18/16 12/18/16 12/19/16 12/19/16 12/19/16 07:00 15:00 23:00 07:00 15:00 23:00 Intake Total 2860 ml 520 ml 1240 ml Balance 2860 ml 520 ml 1240 ml Intake Oral 2860 ml 520 ml 240 ml IV Total 1000 ml # Voids 2 4 2 # Bowel Movements 1 1 Result Diagram: 12/19/16 0523 12/19/16 0523 Imaging Last Impressions Chest X-Ray 12/17/16 1612 Signed Impressions: Service Date/Time: Saturday, December 17, 2016 16:13 - CONCLUSION: Interval development of patchy airspace infiltrates in the left upper and left lower lung. Nii Griggs MD Head CT 12/17/16 0000 Signed Impressions: Service Date/Time: Saturday, December 17, 2016 17:45 - CONCLUSION: No acute findings. Age-appropriate atrophy. Nii Griggs MD Objective Remarks GENERAL: laying in bed. EYES: Extraocular motions intact. ENT: Nose without drainage. Airway patent. NECK: Trachea midline. CARDIOVASCULAR: Regular rate and rhythm without murmurs RESPIRATORY: faint exp wheezes but no crackles GASTROINTESTINAL: Abdomen soft, non-tender, nondistended. No guarding. MUSCULOSKELETAL: Extremities without edema. NEUROLOGICAL: Awake and alert. Cranial nerves II through XII intact. Motor and sensory grossly within normal limits. A/P Assessment and Plan //Suspected severe Sepsis //Suspected atypical pneumonia. //COPD -Fever 101.7, respiratory rate 20, 9% bands. Lactate is 3 on admission -leukocytosis noted today however pt is prednisone and clinically he is feeling much better. afebrile. lactic acid back to baseline. -Left-sided pneumonia on chest x-ray -Continue Azithro/Rocephin -DuoNebs. -Walk test completed and pt does qualify for home oxygen //CHF //Hypertension //CAD //Atrial fibrillation -BMP in the 170s, no evidence of acute fluid overload. EF previously 15%. Continue home blood pressure medications. Can use digoxin. Cardiology following. d/c IVFs and place pt on fluid restriction (1500ml/day) in setting of CHF w EF 15%. //Thrombophilia. Factor V Leiden deficiency -INR 1.7-->1.5 consult pharmacy. Continue warfarin. //Rheumatoid arthritis. Hold off on methotrexate for now setting of infection. -Continue Plaquenil. Continue sulfasalazine. -Continue chronic steroid. //GERD. Continue PPI. //Acute kidney injury. Creatinine 1.8-->1.75-->1.39 from baseline 1.1. Discharge Planning monitor Cr levels monitor Oxygen requirement. anticipate d/c tomorrow. Jimena Topete MD Dec 19, 2016 12:17
[2016-12-19] MEDS: WARFARIN SOD 5 MG TAB PO SCH (15:27)
[2016-12-19] MEDS: FOLIC ACID 1 MG TAB PO SCH (18:34)
[2016-12-20] VITALS (8 sets, daily range): BP systolic 95–166; BP diastolic 50–84; PULSE 54–95; RESP 18–20; TEMP 97.7–99.5; O2SAT 82–100
[2016-12-20] MEDS: sulfaSALAzine 500 MG TAB PO SCH ×3 (03:11→18:46)
[2016-12-20] MEDS: RESP: ALBUTEROL 2.5 MG/IPRATROPIUM 0.5 MG NEB (SCH) NEB ×5 (04:48→18:47)
[2016-12-20 07:53] LABS: INTERNATIONAL NORMALIZED RATIO 2.7 RATIO; PROTHROMBIN TIME - PATIENT 31.7 SEC (9.8-11.6)
[2016-12-20] MEDS: ASPIRIN EC 81 MG TABEC PO SCH (09:46)
[2016-12-20] MEDS: DIGOXIN 0.125 MG TAB PO SCH (09:46)
[2016-12-20] MEDS: SACUBITRIL/VALSARTAN 24 MG-26 MG TAB PO SCH (09:46)
[2016-12-20] MEDS: PANTOPRAZOLE SOD 40 MG DELAYED RELEASE TAB PO SCH (09:46)
[2016-12-20] MEDS: DULoxetine HCl DR 60 MG CAP PO SCH (09:46)
[2016-12-20] MEDS: PREGABALIN 25 MG CAP PO SCH ×3 (09:46→18:46)
[2016-12-20] MEDS: METOPROLOL SUCCINATE 50 MG EXTENDED RELEASE TAB PO SCH (09:47)
[2016-12-20] MEDS: HYDROXYCHLOROQUINE SULFATE 200 MG TAB PO SCH ×2 (09:47→20:21)
[2016-12-20] MEDS: AMIODARONE 200 MG TAB PO SCH (09:47)
[2016-12-20] MEDS: AZITHROMYCIN 250 MG TAB PO SCH (09:47)
[2016-12-20] MEDS: predniSONE 10 MG TAB PO SCH ×2 (09:47→20:21)
[2016-12-20] MEDS: cefTRIAXone INJ 1,000 MG in SODIUM CHLORIDE 0.9% INJ 100 ML IV SCH (09:48)
[2016-12-20] MEDS: SODIUM CHLORIDE 0.9% FLUSH 10 ML FLUSH IV FLUSH SCH ×2 (09:48→20:21)
--- NOTE | 2016-12-20 09:55 | HHI.PR ---
Subjective Remarks Pt states SOB about the same. feels very tired and weak. no CP, nausea or vomiting. States that he doesn't know if hospice called his . He doesn't feel that he can go home w hospice as he is too weak and would rather stay here for now. I was notified by RN that pt's sats dropped in the mid 80's. Pt denies any worsening SOB. He confirms that he doesn't want any aggressive treatment and doesn't want to be intubated in the event he gets worst. Objective Vitals Vital Signs Date Time Temp Pulse Resp B/P (MAP) Pulse Ox O2 Delivery O2 Flow Rate FiO2 12/20/16 08:00 99.0 93 20 109/56 (73) 82 12/20/16 07:29 Nasal Cannula 5.00 12/20/16 04:30 91 Nasal Cannula 4.00 Humidified 12/20/16 04:00 Nasal Cannula 3.00 Humidified 12/20/16 04:00 99.5 95 18 104/56 (72) 89 12/20/16 00:00 98.6 92 18 96/52 (67) 90 12/20/16 00:00 Nasal Cannula 3.00 Humidified 12/19/16 20:00 98.6 101 22 110/83 (92) 92 12/19/16 20:00 Nasal Cannula 3.00 12/19/16 20:00 98.4 96 20 127/67 (87) 93 12/19/16 19:47 83 12/19/16 19:44 93 Nasal Cannula 3.00 12/19/16 16:00 Nasal Cannula 2.00 12/19/16 16:00 97.8 79 18 109/51 (70) 92 12/19/16 12:00 Nasal Cannula 2.00 12/19/16 12:00 98.7 86 18 99/50 (66) 92 12/19/16 12:00 3.00 I/O 12/19/16 12/19/16 12/19/16 12/20/16 12/20/16 12/20/16 07:00 15:00 23:00 07:00 15:00 23:00 Intake Total 1240 ml 1002 ml 610 ml Balance 1240 ml 1002 ml 610 ml Intake Oral 240 ml 610 ml IV Total 1000 ml 1002 ml # Voids 2 3 # Bowel Movements 0 Result Diagram: 12/19/16 0523 12/19/16 0523 Imaging Last Impressions Chest X-Ray 12/17/16 1612 Signed Impressions: Service Date/Time: Saturday, December 17, 2016 16:13 - CONCLUSION: Interval development of patchy airspace infiltrates in the left upper and left lower lung. Nii Griggs MD Head CT 12/17/16 0000 Signed Impressions: Service Date/Time: Saturday, December 17, 2016 17:45 - CONCLUSION: No acute findings. Age-appropriate atrophy. Nii Griggs MD Objective Remarks GENERAL: laying in bed. EYES: Extraocular motions intact. ENT: Nose without drainage. Airway patent. NECK: Trachea midline. CARDIOVASCULAR: Regular rate and rhythm without murmurs RESPIRATORY: faint exp wheezes but no crackles, diminished breath sounds. GASTROINTESTINAL: Abdomen soft, non-tender, nondistended. No guarding. MUSCULOSKELETAL: Extremities without edema. NEUROLOGICAL: Awake and alert. Cranial nerves II through XII intact. Motor and sensory grossly within normal limits. A/P Assessment and Plan //Suspected severe Sepsis //Suspected atypical pneumonia. //COPD -Fever 101.7, respiratory rate 20, 9% bands. Lactate is 3 on admission -leukocytosis most likely from prednisone use. lactic acid back to baseline. -Left-sided pneumonia on chest x-ray -Continue Azithro/Rocephin -DuoNebs. -Walk test completed and pt does qualify for home oxygen //CHF //Hypertension //CAD //Atrial fibrillation -BMP in the 170s, no evidence of acute fluid overload. EF previously 15%. Continue home blood pressure medications. Cardiology following. off IVFs and pt on fluid restriction (1500ml/day) in setting of CHF w EF 15%. //Thrombophilia. Factor V Leiden deficiency -INR 1.7-->1.5 consult pharmacy. Continue warfarin. //Rheumatoid arthritis. Hold off on methotrexate for now setting of infection. -Continue Plaquenil. Continue sulfasalazine. -Continue chronic steroid. //GERD. Continue PPI. //Acute kidney injury. Creatinine 1.8-->1.75-->1.39 from baseline 1.1. Discharge Planning monitor Cr levels monitor Oxygen requirement. I spoke the palliative care team yesterday and pt would like to go home w hospice. consult has been placed however pt is not sure if they spoke w his yet. I have consulted CM for assistance w d/c planning Jimena Topete MD Dec 20, 2016 09:55
--- NOTE | 2016-12-20 15:32 | HHI.HCPN ---
Reason for visit a. To assist with evaluation and management of symptoms including: shortness of breath, pain, debility b. To assist medical decision maker(s) with: better understanding of current medical conditions; weighing benefits/burdens of medical treatment options; making medical treatment decisions. Subjective/Interval History Mr. Mcgraw is a 66 years old male with a past medical history of ischemic cardiomyopathy, cardiac arrest, CHF, AICD/pacemaker, rheumatoid arthritis, GERD , CAD with stenting, viral hepatitis, factor V Leiden deficiency. Patient had a cardiac cath 2 months ago which revealed and EF of 15%. Patient presented to the ER on 12/17/16 complaining of shortness of breath, fever, a productive cough and generalized fatigue for 2 days. Patient seen in his room in bed. Patient is now on 50% Ventimask after desaturating into the mid 80s. Patient is alert and oriented to self, place and situation .Patient states that he is not coughing as much as he did when he came to the hospital. Patient denies chest pain, endorses generalized pain which is exacerbated with movements. Patient also endorsing poor appetite, increased fatigue and feeling thirsty. Patient verbalizes that he does not eat much at home due to pain in his hands, patient states that, "it is sometimes more like a job to feed myself and sometimes when i cannot stand the pain i just won`t eat". He is on a heart healthy diet and 1500ml fluid restriction. Tmax of 99.5 degrees F today. SBP high 90s- low 100s. Laboratory workup revealing PT31.7, INR 2.7. Patient reinforced that he does not want to be intubated or resuscitated. Telephone conversation with patient`s , updated her on patient`s medical status including requirement for more oxygen. Patient`s is meeting with hospice staff tomorrow at bedside. Family/friend interactions Telephone conversation with patient`s . . Advance Directives Living Will: Copy in medical record Health Care Surrogate: Copy in medical record Durable Power of [employer] K[employer]ter: Copy in medical record Advance Directive Specifics Date completed: [facility]- June 21, 2005 DPOA-June 21, 2005 Living Will-June 21, 2005 . Health Care Surrogate(s): [facility]- - Vicky MartinezIgnacio Mcgraw Alternate [facility]- Son - Blake Mcgraw Documented care wishes: Standard verbiage. . Objective Vital Signs Date Time Temp Pulse Resp B/P (MAP) Pulse Ox O2 Delivery O2 Flow Rate FiO2 12/20/16 12:00 98.2 66 20 109/56 (73) 88 12/20/16 08:01 89 12/20/16 08:00 99.0 93 20 109/56 (73) 82 12/20/16 07:29 Nasal Cannula 5.00 12/20/16 04:30 91 Nasal Cannula 4.00 Humidified 12/20/16 04:00 Nasal Cannula 3.00 Humidified 12/20/16 04:00 99.5 95 18 104/56 (72) 89 12/20/16 00:00 98.6 92 18 96/52 (67) 90 12/20/16 00:00 Nasal Cannula 3.00 Humidified 12/19/16 20:00 98.6 101 22 110/83 (92) 92 12/19/16 20:00 Nasal Cannula 3.00 12/19/16 20:00 98.4 96 20 127/67 (87) 93 12/19/16 19:47 83 12/19/16 19:44 93 Nasal Cannula 3.00 12/19/16 16:00 Nasal Cannula 2.00 12/19/16 16:00 97.8 79 18 109/51 (70) 92 Intake & Output 12/20/16 12/20/16 07:00 19:00 Intake Total 610 ml 240 ml Balance 610 ml 240 ml Intake Oral 610 ml 240 ml # Voids 3 # Bowel Movements 0 Physical Exam CONSTITUTIONAL/GENERAL: This is an adequately nourished patient in mild respiratory distress, dyspneic with conversation. TUBES/LINES/DRAINS:PIV SKIN: No jaundice. Face appears flushed. No wounds seen anteriorly. Skin temperature appropriate. Not diaphoretic. HEAD: Atraumatic. Normocephalic. EYES: Pupils equal and round and reactive. Extraocular motions intact. No scleral icterus. No injection or drainage. Fundi not examined. ENT: Hearing grossly normal. Nose without bleeding or purulent drainage. Moist oral mucosa. NECK: Trachea midline. Supple, nontender. CARDIOVASCULAR: Regular rate and rhythm without murmurs, gallops, or rubs. No JVD. RESPIRATORY/CHEST: Symmetric, unlabored respirations. Diminished in the bases with expiratory wheezes. No rales, or rhonchi. GASTROINTESTINAL: Abdomen soft, non-tender, nondistended. No guarding. Bowel sounds present. GENITOURINARY: Without palpable bladder distension. MUSCULOSKELETAL: Extremities without clubbing, cyanosis, or edema. No calf tenderness. No mottling or clubbing. Pain to arms and joints. NEUROLOGICAL: Awake and alert and oriented to person, place and time. Motor and sensory grossly within normal limits. Follows commands. Cognitively sharp. Moves all extremities. PSYCHIATRIC: No obvious anxiety/depression. no apparent hallucinations or other psychotic thought process. . Diagnostic Tests Laboratory Laboratory Tests Test 12/17/16 16:15 12/17/16 16:45 12/17/16 20:58 12/17/16 21:12 White Blood Count 9.6 TH/MM3 (4.0-11.0) Red Blood Count 3.41 MIL/MM3 (4.50-5.90) Hemoglobin 12.5 GM/DL (13.0-17.0) Hematocrit 36.5 % (39.0-51.0) Mean Corpuscular Volume 107.2 FL (80.0-100.0) Mean Corpuscular Hemoglobin 36.8 PG (27.0-34.0) Mean Corpuscular Hemoglobin Concent 34.3 % (32.0-36.0) Red Cell Distribution Width 16.2 % (11.6-17.2) Platelet Count 158 TH/MM3 (150-450) Mean Platelet Volume 9.8 FL (7.0-11.0) Neutrophils (%) (Auto) 77.3 % (16.0-70.0) Lymphocytes (%) (Auto) 18.2 % (9.0-44.0) Monocytes (%) (Auto) 3.5 % (0.0-8.0) Eosinophils (%) (Auto) 0.8 % (0.0-4.0) Basophils (%) (Auto) 0.2 % (0.0-2.0) Neutrophils # (Auto) 7.4 TH/MM3 (1.8-7.7) Lymphocytes # (Auto) 1.7 TH/MM3 (1.0-4.8) Monocytes # (Auto) 0.3 TH/MM3 (0-0.9) Eosinophils # (Auto) 0.1 TH/MM3 (0-0.4) Basophils # (Auto) 0.0 TH/MM3 (0-0.2) CBC Comment AUTO DIFF Differential Total Cells Counted 100 Neutrophils % (Manual) 69 % (16-70) Band Neutrophils % 9 % (0-6) Lymphocytes % 17 % (9-44) Monocytes % 4 % (0-8) Eosinophils % 1 % (0-4) Neutrophils # (Manual) 7.5 TH/MM3 (1.8-7.7) Differential Comment FINAL DIFF MANUAL Toxic Granulation 1+ (NORMAL) Platelet Estimate NORMAL (NORMAL) Platelet Morphology Comment ENLARGED (NORMAL) Prothrombin Time 19.1 SEC (9.8-11.6) Prothromb Time International Ratio 1.7 RATIO Activated Partial Thromboplast Time 46.2 SEC (24.3-30.1) Blood Urea Nitrogen 26 MG/DL (7-18) Creatinine 1.78 MG/DL (0.60-1.30) Random Glucose 83 MG/DL (74-106) Total Protein 5.6 GM/DL (6.4-8.2) Albumin 2.1 GM/DL (3.4-5.0) Calcium Level 8.3 MG/DL (8.5-10.1) Alkaline Phosphatase 42 U/L (45-117) Aspartate Amino Transf (AST/SGOT) 20 U/L (15-37) Alanine Aminotransferase (ALT/SGPT) 26 U/L (12-78) Total Bilirubin 0.5 MG/DL (0.2-1.0) Sodium Level 139 MEQ/L (136-145) Potassium Level 3.3 MEQ/L (3.5-5.1) Chloride Level 104 MEQ/L (98-107) Carbon Dioxide Level 25.9 MEQ/L (21.0-32.0) Anion Gap 9 MEQ/L (5-15) Estimat Glomerular Filtration Rate 38 ML/MIN (>89) Total Creatine Kinase 98 U/L (39-308) 128 U/L (39-308) Troponin I 0.19 NG/ML (0.02-0.05) 0.16 NG/ML (0.02-0.05) B-Type Natriuretic Peptide 175 PG/ML (0-100) Digoxin Level 0.6 NG/ML (0.8-2.0) Lactic Acid Level 3.0 mmol/L (0.4-2.0) 2.0 mmol/L (0.4-2.0) Test 12/18/16 04:30 12/19/16 05:23 12/20/16 06:42 White Blood Count 10.8 TH/MM3 (4.0-11.0) 15.0 TH/MM3 (4.0-11.0) Red Blood Count 3.05 MIL/MM3 (4.50-5.90) 2.84 MIL/MM3 (4.50-5.90) Hemoglobin 11.2 GM/DL (13.0-17.0) 10.3 GM/DL (13.0-17.0) Hematocrit 32.9 % (39.0-51.0) 30.8 % (39.0-51.0) Mean Corpuscular Volume 107.8 FL (80.0-100.0) 108.2 FL (80.0-100.0) Mean Corpuscular Hemoglobin 36.6 PG (27.0-34.0) 36.3 PG (27.0-34.0) Mean Corpuscular Hemoglobin Concent 34.0 % (32.0-36.0) 33.6 % (32.0-36.0) Red Cell Distribution Width 15.7 % (11.6-17.2) 15.8 % (11.6-17.2) Platelet Count 147 TH/MM3 (150-450) 130 TH/MM3 (150-450) Mean Platelet Volume 9.8 FL (7.0-11.0) 9.9 FL (7.0-11.0) Neutrophils (%) (Auto) 87.6 % (16.0-70.0) 89.9 % (16.0-70.0) Lymphocytes (%) (Auto) 7.0 % (9.0-44.0) 5.9 % (9.0-44.0) Monocytes (%) (Auto) 4.9 % (0.0-8.0) 4.1 % (0.0-8.0) Eosinophils (%) (Auto) 0.4 % (0.0-4.0) 0.0 % (0.0-4.0) Basophils (%) (Auto) 0.1 % (0.0-2.0) 0.1 % (0.0-2.0) Neutrophils # (Auto) 9.5 TH/MM3 (1.8-7.7) 13.5 TH/MM3 (1.8-7.7) Lymphocytes # (Auto) 0.8 TH/MM3 (1.0-4.8) 0.9 TH/MM3 (1.0-4.8) Monocytes # (Auto) 0.5 TH/MM3 (0-0.9) 0.6 TH/MM3 (0-0.9) Eosinophils # (Auto) 0.0 TH/MM3 (0-0.4) 0.0 TH/MM3 (0-0.4) Basophils # (Auto) 0.0 TH/MM3 (0-0.2) 0.0 TH/MM3 (0-0.2) CBC Comment AUTO DIFF AUTO DIFF Differential Total Cells Counted 100 100 Neutrophils % (Manual) 76 % (16-70) 89 % (16-70) Band Neutrophils % 12 % (0-6) 9 % (0-6) Lymphocytes % 7 % (9-44) 2 % (9-44) Monocytes % 2 % (0-8) Neutrophils # (Manual) 9.8 TH/MM3 (1.8-7.7) 14.7 TH/MM3 (1.8-7.7) Metamyelocytes 1 % (0-1) Myelocytes 2 % (0-0) Differential Comment FINAL DIFF MANUAL FINAL DIFF MANUAL Platelet Estimate LOW (NORMAL) LOW (NORMAL) Platelet Morphology Comment NORMAL (NORMAL) NORMAL (NORMAL) Prothrombin Time 23.5 SEC (9.8-11.6) 17.4 SEC (9.8-11.6) 31.7 SEC (9.8-11.6) Prothromb Time International Ratio 2.1 RATIO 1.5 RATIO 2.7 RATIO Blood Urea Nitrogen 24 MG/DL (7-18) 20 MG/DL (7-18) Creatinine 1.75 MG/DL (0.60-1.30) 1.39 MG/DL (0.60-1.30) Random Glucose 147 MG/DL (74-106) 170 MG/DL (74-106) Total Protein 5.4 GM/DL (6.4-8.2) Albumin 2.0 GM/DL (3.4-5.0) Calcium Level 8.0 MG/DL (8.5-10.1) 7.8 MG/DL (8.5-10.1) Alkaline Phosphatase 44 U/L (45-117) Aspartate Amino Transf (AST/SGOT) 26 U/L (15-37) Alanine Aminotransferase (ALT/SGPT) 29 U/L (12-78) Total Bilirubin 0.5 MG/DL (0.2-1.0) Sodium Level 137 MEQ/L (136-145) 134 MEQ/L (136-145) Potassium Level 4.0 MEQ/L (3.5-5.1) 3.9 MEQ/L (3.5-5.1) Chloride Level 103 MEQ/L (98-107) 102 MEQ/L (98-107) Carbon Dioxide Level 26.4 MEQ/L (21.0-32.0) 22.5 MEQ/L (21.0-32.0) Anion Gap 8 MEQ/L (5-15) 10 MEQ/L (5-15) Estimat Glomerular Filtration Rate 39 ML/MIN (>89) 51 ML/MIN (>89) Total Creatine Kinase 116 U/L (39-308) Troponin I 0.12 NG/ML (0.02-0.05) Result Diagram: 12/19/1652212/19/16522 Microbiology Microbiology Date/Time Source Procedure Growth Status 12/17/16 16:45 Blood Peripheral Aerobic Blood Culture - Preliminary NO GROWTH IN 3 DAYS Resulted 12/17/16 16:45 Blood Peripheral Anaerobic Blood Culture - Preliminary NO GROWTH IN 3 DAYS Resulted 12/17/16 16:40 Blood Peripheral Aerobic Blood Culture - Preliminary NO GROWTH IN 3 DAYS Resulted 12/17/16 16:40 Blood Peripheral Anaerobic Blood Culture - Preliminary NO GROWTH IN 3 DAYS Resulted 12/17/16 16:20 Nasal Washing Influenza Types A,B Antigen (LARY) - Final NEGATIVE FOR FLU A AND B ANTIGEN.... Complete Assessment and Plan Disease Oriented Problem List: (1) Pneumonia (2) Coronary artery disease (3) Ischemic cardiomyopathy Symptom Scale: (1) Debility 0-10 Scale: Unable to quantify (2) Shortness of breath 0-10 Scale: Unable to quantify Comment: Patient was desaturating into the mid 80s on 5L humidified O2. Patient had to be placed on 50% Ventimask. . (3) Pain 0-10 Scale: 5 (Patient has a hx of rheumatoid arthritis. Pain level at rest 4-5 /10.) Comment: Chronic arthritic pain . Exacerbated with movement. . Pertinent Non-Medical Issues Psychosocial:Patient was born in [place], [place]. He moved to [place] 10 years ago. Patient has been twice. He`s currently to his Vicky Mcgraw of 20 years. Patient has 2 biological sons and 1 step-son. Patient graduated from college with a Business administration degree. 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 Spiritual: Patient is [employer] Legal: Patient has DPOA, HCS, and HCS signed and on EMR Ethical issues impacting care:None identified at this time. Important Contacts - Vicky Mcgraw [phone] home; [phone] other /work Son- Blake Mcgraw- [phone] . Prognosis Mr. Mcgraw is a 66 years old male with a past medical history of ischemic cardiomyopathy, cardiac arrest, CHF, AICD,pacemaker, rheumatoid arthritis, GERD , CAD with stenting, factor V Leiden deficiency. Patient had a cardiac cath 2 months ago which revealed and EF of 15%. Patient presented to the ER on complaining of shortness of breath, fever, a productive cough and generalized fatigue for 2 days. Given multiple comorbidities and current ongoing increased symptom burden, patient remains at high risk for further complications and decline. . Code Status: No Code Plan PLAN: Legal decision maker: Patient is able to participate in his own medical decision making. In the event that patient is incapacitated to make his own medical decision, his healthcare surrogate is his Vicky Love and his alternate surrogate is his son Blake Mcgraw. Goals: 12/20/2016- Community DNR signed, Plan to meet with hospice staff at bedside on 12/21/2016. Patient`s Vicky has continued to be supportive of patient`s decisions. CODE STATUS: DNR SYMPTOMS: * Shortness of breath: Patient c/o increased shortness breath. Dyspneic with conversation. Patient is not on home O2. O2 saturation low 90s now on 50% Ventimask. Patient on Duonebs q 4 hours. Patient may need home oxygen at home. * Pain: Patient has a history rheumatoid arthritis. c/o neuropathic pain to his lower extremities. Patient continues to c/o pain to joints which is exacerbated with movement. Patient verbalizing that his pain is exacerbated with activity. Patient on Lyrica 50mg TID and Oxycodone 30mg q 6 hours prn. Patient has required x5 prn doses of Oxycodone over 24 hrs. Recommending increasing frequency to every 4 hours. * Debility: Multifactorial. Patient has been progressively declining over the past couple months. Has had increased fatigue, spends more time sleeping during the day. Patient requires assistance with ADLs like bathing sometimes. Gets dyspneic with activity. Patient will most likely continue to physically decline. PT following. Palliative care will continue to follow the patient during hospital course as condition evolves, to assist patient/decision-maker with understanding of their medical conditions, weighing benefits/burdens of treatment options, for clarification of goals of treatment. Additionally will assist with any symptoms of palliative concern. . Attestation To help prompt me to consider important information that might be impacting today's encounter and assessment, information from prior notes written by myself or my colleagues may have been "brought forward" into today's note. My signature on this note, however, is an attestation that I personally performed the exam, history, and/or decision-making noted today, and, unless otherwise indicated, the interactions with patient, family, and staff as well as the review of records all occurred today. I also attest that the listed assessment and stated plan reflect my best clinical judgment today based on the combination of historical information, prior notes, and today's exam/ interactions. When time spent is documented, it refers only to time spent today by the signer, or if indicated, combined time spent today by collaborating physician/nurse practitioner. . Nik Barker Dec 20, 2016 15:32
[2016-12-20] MEDS ORDERED: LORazepam 2 MG/ML VIAL IV PUSH PRN (19:45)
[2016-12-20] MEDS ORDERED: MORPHINE SULFATE 2 MG/ML INJ IV PRN (20:00)
[2016-12-20] MEDS ORDERED: RESP: ALBUTEROL 2.5 MG/IPRATROPIUM 0.5 MG NEB (PRN) NEB (20:00)
[2016-12-20] MEDS ORDERED: MORPHINE SULFATE 2 MG/ML INJ IV ONE (20:00)
[2016-12-20] MEDS ORDERED: LORazepam 2 MG/ML VIAL PO PRN (23:45)
[2016-12-21] VITALS: BP 98/56; PULSE 81; RESP 20; TEMP 98.6; O2SAT 97
[2016-12-21] MEDS: LORazepam 0.5 MG TAB PO PRN ×2 (00:03→04:56)
[2016-12-21] MEDS: RESP: ALBUTEROL 2.5 MG/IPRATROPIUM 0.5 MG NEB (SCH) NEB ×4 (00:45→11:31)
[2016-12-21 00:48] VITALS: O2SAT 93
[2016-12-21 04:00] VITALS: BP 92/50; PULSE 81; RESP 20; TEMP 97.6; O2SAT 93
[2016-12-21] MEDS ORDERED: FUROSEMIDE 40 MG/4 ML VIAL IV PUSH ONE (04:45)
[2016-12-21] MEDS: sulfaSALAzine 500 MG TAB PO SCH ×2 (04:56→10:05)
[2016-12-21 07:45] LABS: INTERNATIONAL NORMALIZED RATIO 4.8 RATIO; PROTHROMBIN TIME - PATIENT 56.3 SEC (9.8-11.6)
[2016-12-21 08:00] VITALS: BP 95/50; PULSE 86; RESP 16; TEMP 98.8; O2SAT 97
[2016-12-21 08:34] LABS: POTASSIUM 4.6 MEQ/L (3.5-5.1)
[2016-12-21] MEDS ORDERED: FUROSEMIDE 40 MG/4 ML VIAL IV PUSH SCH ×2 (09:00→21:00)
--- NOTE | 2016-12-21 09:19 | HHI.PR ---
Subjective Remarks Pt states breathing is improved, no chest pain, states his arms are sore whenever he moves around. no nausea or vomiting. Objective Vitals Vital Signs Date Time Temp Pulse Resp B/P (MAP) Pulse Ox O2 Delivery O2 Flow Rate FiO2 12/21/16 08:00 97 Non-Rebreather 12/21/16 04:00 Non-Rebreather 15.00 100 12/21/16 04:00 97.6 81 20 92/50 (64) 93 12/21/16 00:48 93 Non-Rebreather 15.00 100 12/21/16 00:00 98.6 81 20 98/56 (70) 97 12/21/16 00:00 Non-Rebreather 15.00 100 12/20/16 20:50 78 12/20/16 20:00 Non-Rebreather 100 12/20/16 20:00 98.0 89 20 95/54 (68) 97 12/20/16 19:00 80 Partial Non-Rebreather 100 12/20/16 18:51 Non-Rebreather 15.00 12/20/16 16:00 97.7 85 20 105/50 (68) 89 12/20/16 12:00 98.2 66 20 109/56 (73) 88 I/O 12/20/16 12/20/16 12/20/16 12/21/16 12/21/16 12/21/16 07:00 15:00 23:00 07:00 15:00 23:00 Intake Total 610 ml 240 ml 200 ml Output Total 200 ml Balance 610 ml 240 ml 0 ml Intake Oral 610 ml 240 ml 200 ml Output Urine Total 200 ml # Voids 3 # Bowel Movements 0 Result Diagram: 12/19/16 0523 12/21/16 0610 Imaging Last Impressions Chest X-Ray 12/17/16 1612 Signed Impressions: Service Date/Time: Saturday, December 17, 2016 16:13 - CONCLUSION: Interval development of patchy airspace infiltrates in the left upper and left lower lung. Nii Griggs MD Head CT 12/17/16 0000 Signed Impressions: Service Date/Time: Saturday, December 17, 2016 17:45 - CONCLUSION: No acute findings. Age-appropriate atrophy. Nii Griggs MD Objective Remarks GENERAL: laying in bed. EYES: Extraocular motions intact. ENT: Nose without drainage. Airway patent. NECK: Trachea midline. CARDIOVASCULAR: Regular rate and rhythm without murmurs RESPIRATORY: faint exp wheezes but no crackles, diminished breath sounds. GASTROINTESTINAL: Abdomen soft, non-tender, nondistended. No guarding. MUSCULOSKELETAL: Lower extremities w trace to 1+ edema NEUROLOGICAL: Awake and alert. Cranial nerves II through XII intact. Motor and sensory grossly within normal limits. A/P Assessment and Plan //Suspected severe Sepsis //Suspected atypical pneumonia. //COPD //Resp failure -Fever 101.7, respiratory rate 20, 9% bands. Lactate is 3 on admission -leukocytosis most likely from prednisone use. lactic acid back to baseline. -Left-sided pneumonia on chest x-ray -Continue Azithro/Rocephin -DuoNebs. -Walk test completed and pt does qualify for home oxygen //Hypertension //CAD //Atrial fibrillation //acute systolic CHF exacerbation -Pts sat worsened overnight and pt requiring non partial rebreather. Pt given lasix 40mg IV x 1 earlier this morning which he responded to, will continue 40mg IV q12hrs. continue to avoid IVFs and continue fluid restriction (1500ml/ day) in setting of CHF w EF 15%. Monitor respiratory status closely. -Repeat BNP today, chest x-ray. Continue home blood pressure medications. Cardiology following. Morphine and ativan prn available for comfort measure in case they are needed. //Thrombophilia. Factor V Leiden deficiency -INR 4.8 today (supratherapeutic). coumadin has been held. Pharmacy assisting w management. monitor for any bleed. //Rheumatoid arthritis. Hold off on methotrexate for now setting of infection. -Continue Plaquenil. Continue sulfasalazine. -Continue chronic steroid. //GERD. Continue PPI. //Acute kidney injury. Creatinine 1.8-->1.75-->1.39-->1.75 (baseline 1.1) .Monitor kidney function closely as pt's is being aggressively diuresed due to resp failure. Discharge Planning monitor Cr levels monitor Oxygen requirement. Hospice has been consulted. They will be meeting w today. I have consulted CM for assistance w d/c planning Jimena Topete MD Dec 21, 2016 09:19
[2016-12-21] MEDS: METOPROLOL SUCCINATE 50 MG EXTENDED RELEASE TAB PO SCH (09:50)
[2016-12-21] MEDS: SACUBITRIL/VALSARTAN 24 MG-26 MG TAB PO SCH (09:51)
[2016-12-21] MEDS: ASPIRIN EC 81 MG TABEC PO SCH (09:51)
[2016-12-21] MEDS: DULoxetine HCl DR 60 MG CAP PO SCH (09:51)
[2016-12-21] MEDS: PREGABALIN 25 MG CAP PO SCH ×2 (09:51→12:20)
[2016-12-21] MEDS: AMIODARONE 200 MG TAB PO SCH (09:51)
[2016-12-21] MEDS: PANTOPRAZOLE SOD 40 MG DELAYED RELEASE TAB PO SCH (09:52)
[2016-12-21] MEDS: HYDROXYCHLOROQUINE SULFATE 200 MG TAB PO SCH (09:52)
[2016-12-21] MEDS: predniSONE 10 MG TAB PO SCH (09:52)
[2016-12-21] MEDS: SODIUM CHLORIDE 0.9% FLUSH 10 ML FLUSH IV FLUSH SCH (09:52)
[2016-12-21] MEDS: AZITHROMYCIN 250 MG TAB PO SCH (09:52)
[2016-12-21] MEDS: cefTRIAXone INJ 1,000 MG in SODIUM CHLORIDE 0.9% INJ 100 ML IV SCH (09:52)
[2016-12-21] MEDS: DIGOXIN 0.125 MG TAB PO SCH (09:52)
[2016-12-21] MEDS ORDERED: FUROSEMIDE 20 MG/2 ML VIAL IV PUSH ONE (10:45)
[2016-12-21 12:00] VITALS: BP 101/52; PULSE 88; RESP 18; TEMP 98.1; O2SAT 91
--- NOTE | 2016-12-21 12:23 | RADRPT ---
EXAM DATE/TIME: 12/21/2016 11:49 [facility] COMPARISON: CHEST SINGLE AP, December 17, 2016, 16:13. INDICATIONS : Shortness of breath. MEDICAL HISTORY : Cardiovascular disease. Congestive heart failure. Hypertension. SURGICAL HISTORY : None. ENCOUNTER: Subsequent ACUITY: 4 - 6 days PAIN SCORE: 0/10 LOCATION: Bilateral chest FINDINGS: A single AP erect portable view of the chest was obtained and demonstrates new bilateral patchy infil trates left greater than right. The heart size appears mildly prominent. The left subclavian AV seque ntial transvenous remains in place. There is no effusion. The bony thorax remains intact. CONCLUSION: New patchy bilateral pulmonary infiltrates left greater than right. This is concernin g for pulmonary edema which could be cardiogenic or noncardiogenic in origin. Jacob Schneider MD on December 21, 2016 at 12:21 Board Certified Radiologist. This report was verified electronically.
[2016-12-21] MEDS ORDERED: HYDROmorphone HCL PF 1 MG/ML VIAL IV PUSH PRN ×2 (13:00)
[2016-12-21] MEDS ORDERED: LORazepam 2 MG/ML VIAL IV PUSH PRN ×2 (13:30)
--- NOTE | 2016-12-21 13:47 | HHI.DS ---
Discharge Summary Admission Date Dec 17, 2016 at 18:12 Discharge Date: Dec 21, 2016 Admitting Diagnosis pneumonia, dyspnea, elevated troponin (1) CHF (congestive heart failure) ICD Code: I50.9 - Heart failure, unspecified (2) Hypoxia ICD Code: R09.02 - Hypoxemia (3) PNA (pneumonia) ICD Code: J18.9 - Pneumonia, unspecified organism (4) Pain ICD Code: R52 - Pain, unspecified Procedures none Brief History - From Admission 66-year-old male with history of ischemic cardiomyopathy, react arrest, AICD with pacemaker, CHF, hypertension, CAD stenting, factor V Leiden deficiency, rheumatoid arthritis who presents with a 2 day history of shortness of breath, productive cough. He has been swelling sputum, has not visualized. He reports fevers, unmeasured. Denies any chest pain. Denies any nausea or vomiting. He reports 2 day history of generalized fatigue. CBC/BMP: 12/19/16 0523 12/21/16 0610 Significant Findings Laboratory Tests Test 12/19/16 05:23 12/20/16 06:42 12/21/16 06:10 White Blood Count 15.0 TH/MM3 (4.0-11.0) Red Blood Count 2.84 MIL/MM3 (4.50-5.90) Hemoglobin 10.3 GM/DL (13.0-17.0) Hematocrit 30.8 % (39.0-51.0) Mean Corpuscular Volume 108.2 FL (80.0-100.0) Mean Corpuscular Hemoglobin 36.3 PG (27.0-34.0) Platelet Count 130 TH/MM3 (150-450) Neutrophils (%) (Auto) 89.9 % (16.0-70.0) Lymphocytes (%) (Auto) 5.9 % (9.0-44.0) Neutrophils # (Auto) 13.5 TH/MM3 (1.8-7.7) Lymphocytes # (Auto) 0.9 TH/MM3 (1.0-4.8) Neutrophils % (Manual) 89 % (16-70) Band Neutrophils % 9 % (0-6) Lymphocytes % 2 % (9-44) Neutrophils # (Manual) 14.7 TH/MM3 (1.8-7.7) Platelet Estimate LOW (NORMAL) Prothrombin Time 17.4 SEC (9.8-11.6) 31.7 SEC (9.8-11.6) 56.3 SEC (9.8-11.6) Blood Urea Nitrogen 20 MG/DL (7-18) 26 MG/DL (7-18) Creatinine 1.39 MG/DL (0.60-1.30) 1.75 MG/DL (0.60-1.30) Random Glucose 170 MG/DL (74-106) Calcium Level 7.8 MG/DL (8.5-10.1) Sodium Level 134 MEQ/L (136-145) 133 MEQ/L (136-145) Estimat Glomerular Filtration Rate 51 ML/MIN (>89) 39 ML/MIN (>89) Imaging Last Impressions Chest X-Ray 12/21/16 0000 Signed Impressions: Service Date/Time: Wednesday, December 21, 2016 11:49 - CONCLUSION: New patchy bilateral pulmonary infiltrates left greater than right. This is concerning for pulmonary edema which could be cardiogenic or noncardiogenic in origin. Jacob Schneider MD Head CT 12/17/16 0000 Signed Impressions: Service Date/Time: Saturday, December 17, 2016 17:45 - CONCLUSION: No acute findings. Age-appropriate atrophy. Nii Griggs MD PE at Discharge GENERAL: laying in bed. EYES: Extraocular motions intact. ENT: Nose without drainage. Airway patent. NECK: Trachea midline. CARDIOVASCULAR: Regular rate and rhythm without murmurs RESPIRATORY: faint exp wheezes but no crackles, diminished breath sounds. GASTROINTESTINAL: Abdomen soft, non-tender, nondistended. No guarding. MUSCULOSKELETAL: Lower extremities w trace to 1+ edema NEUROLOGICAL: Awake and alert. Cranial nerves II through XII intact. Motor and sensory grossly within normal limits. Hospital Course //Hypertension/ CAD/ Atrial fibrillation/ acute systolic CHF exacerbation -Pts sat worsened overnight and required non partial rebreather. Pt given lasix 40mg IV x 1 earlier this morning which he responded to, was then placed on 40mg IV q12hrs. avoid IVFs and continue fluid restriction (1500ml/day) in setting of CHF w EF 15%. met w palliative care and hospice team and pt will be transferred to the hospice care center today. Order has been placed. // severe Sepsis/ pneumonia/COPD/Resp failure -Fever 101.7, respiratory rate 20, 9% bands. Lactate is 3 on admission -leukocytosis most likely from prednisone use. lactic acid back to baseline. -Left-sided pneumonia on chest x-ray -Continue Azithro/Rocephin -DuoNebs. -Walk test completed and pt did qualify for home oxygen Pt Condition on Discharge: Deteriorating Discharge Disposition: Hospice/Med Facility Discharge Time: > 30 minutes Discharge Instructions DIET: Follow Instructions for: As Tolerated, No Restrictions Activities you can perform: Regular-No Restrictions Jimena Topete MD Dec 21, 2016 13:47
--- NOTE | 2016-12-21 13:51 | HHI.HCPN ---
Reason for visit a. To assist with evaluation and management of symptoms including: shortness of breath, pain, debility b. To assist medical decision maker(s) with: better understanding of current medical conditions; weighing benefits/burdens of medical treatment options; making medical treatment decisions. Subjective/Interval History Mr. Mcgraw is a 66 years old male with a past medical history of ischemic cardiomyopathy, cardiac arrest, CHF, AICD/pacemaker, rheumatoid arthritis, GERD , CAD with stenting, viral hepatitis, factor V Leiden deficiency. Patient had a cardiac cath 2 months ago which revealed and EF of 15%. Patient presented to the ER on 12/17/16 complaining of shortness of breath, fever, a productive cough and generalized fatigue for 2 days. Patient seen in his room in bed. Patient in respiratory distress- noticeable increased work of breathing, looks fatigued and is dyspneic with conversation. Patient is not very conversant today. Patient is now on a partial nonrebreather , 15 L. O2 saturation 100%. Still endorses pain to his joints, though he mentions it`s slightly relieved after he received morphine sulfate. Patient is afebrile. HR 70-80s. SBP 90s. Laboratory workup revealing sodium 133, potassium 4.6, BUN/Creatinine 26/1.75, PT 56.3, INR 4.8. Chest X ray revealing trace left greater than right concerning for pulmonary edema. Patient states that he has no appetite and his hands are painful to feed himself. Remains on a heart healthy diet and 1500ml fluid restriction. Patient`s is meeting with hospice staff at bedside today. 1230hours Met with patient`s at bedside, very tearful. verbalizes that she does not want to see him suffering like this and she wants him to be kept comfortable. Discussed management of symptoms at hospice care center since patient is having increased work of breathing and getting more dyspneic requiring more O2. Patient`s agreeable with transferring patient to a care center if possible. Case discussed with Dr. Topete, Dr. Thomas, [facility] Charge Nurse Mattie and psychiatric registered nurse Wanda. Family/friend interactions Spoke to patient`s at bedside. . Advance Directives Living Will: Copy in medical record Health Care Surrogate: Copy in medical record Durable Power of Supervisor Char House: Copy in medical record Advance Directive Specifics Date completed: HCS- June 21, 2005 DPOA-June 21, 2005 Living Will-June 21, 2005 . Health Care Surrogate(s): [facility]- - Vicky Mcgraw Alternate [facility]- Son - Blake Mcgraw Documented care wishes: Standard verbiage. . Objective Vital Signs Date Time Temp Pulse Resp B/P (MAP) Pulse Ox O2 Delivery O2 Flow Rate FiO2 12/21/16 08:00 98.8 86 16 95/50 (65) 97 12/21/16 08:00 97 Non-Rebreather 12/21/16 04:00 Non-Rebreather 15.00 100 12/21/16 04:00 97.6 81 20 92/50 (64) 93 12/21/16 00:48 93 Non-Rebreather 15.00 100 12/21/16 00:00 98.6 81 20 98/56 (70) 97 12/21/16 00:00 Non-Rebreather 15.00 100 12/20/16 20:50 78 12/20/16 20:00 Non-Rebreather 100 12/20/16 20:00 98.0 89 20 95/54 (68) 97 12/20/16 19:00 80 Partial Non-Rebreather 100 12/20/16 18:51 Non-Rebreather 15.00 12/20/16 16:00 97.7 85 20 105/50 (68) 89 Intake & Output 12/21/16 12/21/16 07:00 19:00 Intake Total 200 ml Output Total 200 ml Balance 0 ml Intake Oral 200 ml Output Urine Total 200 ml Physical Exam CONSTITUTIONAL/GENERAL: This is an adequately nourished patient in respiratory distress- increased work of breathing, dyspneic with conversation. TUBES/LINES/DRAINS:PIV SKIN: No jaundice. Face appears flushed. No wounds seen anteriorly. Skin temperature appropriate. Not diaphoretic. HEAD: Atraumatic. Normocephalic. EYES: Pupils equal and round and reactive. Extraocular motions intact. No scleral icterus. No injection or drainage. Fundi not examined. ENT: Hearing grossly normal. Nose without bleeding or purulent drainage. Moist oral mucosa. NECK: Trachea midline. Supple, nontender. CARDIOVASCULAR: Regular rate and rhythm without murmurs, gallops, or rubs. No JVD. RESPIRATORY/CHEST: Symmetric, increased work of breathing. Rhonchi to RUL, RML with expiratory wheezing. Diminished breath sounds to the left side. GASTROINTESTINAL: Abdomen soft, non-tender, nondistended. No guarding. Bowel sounds present. GENITOURINARY: Without palpable bladder distension. MUSCULOSKELETAL: Extremities without clubbing, cyanosis, or edema. No calf tenderness. No mottling or clubbing. Pain to arms and joints. NEUROLOGICAL: Awake, lethargic and oriented to person, place and time. Motor and sensory grossly within normal limits. Follows commands. Moves all extremities. PSYCHIATRIC: No obvious anxiety/depression. no apparent hallucinations or other psychotic thought process. . Diagnostic Tests Laboratory Laboratory Tests Test 12/19/16 05:23 12/20/16 06:42 12/21/16 06:10 White Blood Count 15.0 TH/MM3 (4.0-11.0) Red Blood Count 2.84 MIL/MM3 (4.50-5.90) Hemoglobin 10.3 GM/DL (13.0-17.0) Hematocrit 30.8 % (39.0-51.0) Mean Corpuscular Volume 108.2 FL (80.0-100.0) Mean Corpuscular Hemoglobin 36.3 PG (27.0-34.0) Mean Corpuscular Hemoglobin Concent 33.6 % (32.0-36.0) Red Cell Distribution Width 15.8 % (11.6-17.2) Platelet Count 130 TH/MM3 (150-450) Mean Platelet Volume 9.9 FL (7.0-11.0) Neutrophils (%) (Auto) 89.9 % (16.0-70.0) Lymphocytes (%) (Auto) 5.9 % (9.0-44.0) Monocytes (%) (Auto) 4.1 % (0.0-8.0) Eosinophils (%) (Auto) 0.0 % (0.0-4.0) Basophils (%) (Auto) 0.1 % (0.0-2.0) Neutrophils # (Auto) 13.5 TH/MM3 (1.8-7.7) Lymphocytes # (Auto) 0.9 TH/MM3 (1.0-4.8) Monocytes # (Auto) 0.6 TH/MM3 (0-0.9) Eosinophils # (Auto) 0.0 TH/MM3 (0-0.4) Basophils # (Auto) 0.0 TH/MM3 (0-0.2) CBC Comment AUTO DIFF Differential Total Cells Counted 100 Neutrophils % (Manual) 89 % (16-70) Band Neutrophils % 9 % (0-6) Lymphocytes % 2 % (9-44) Neutrophils # (Manual) 14.7 TH/MM3 (1.8-7.7) Differential Comment FINAL DIFF MANUAL Platelet Estimate LOW (NORMAL) Platelet Morphology Comment NORMAL (NORMAL) Prothrombin Time 17.4 SEC (9.8-11.6) 31.7 SEC (9.8-11.6) 56.3 SEC (9.8-11.6) Prothromb Time International Ratio 1.5 RATIO 2.7 RATIO 4.8 RATIO Blood Urea Nitrogen 20 MG/DL (7-18) 26 MG/DL (7-18) Creatinine 1.39 MG/DL (0.60-1.30) 1.75 MG/DL (0.60-1.30) Random Glucose 170 MG/DL (74-106) 78 MG/DL (74-106) Calcium Level 7.8 MG/DL (8.5-10.1) 8.7 MG/DL (8.5-10.1) Sodium Level 134 MEQ/L (136-145) 133 MEQ/L (136-145) Potassium Level 3.9 MEQ/L (3.5-5.1) 4.6 MEQ/L (3.5-5.1) Chloride Level 102 MEQ/L (98-107) 99 MEQ/L (98-107) Carbon Dioxide Level 22.5 MEQ/L (21.0-32.0) 23.0 MEQ/L (21.0-32.0) Anion Gap 10 MEQ/L (5-15) 11 MEQ/L (5-15) Estimat Glomerular Filtration Rate 51 ML/MIN (>89) 39 ML/MIN (>89) Result Diagram: 12/19/16 0523 12/21/16 0610 Imaging Last 24 hours Impressions Chest X-Ray 12/21/16 0000 Signed Impressions: Service Date/Time: Wednesday, December 21, 2016 11:49 - CONCLUSION: New patchy bilateral pulmonary infiltrates left greater than right. This is concerning for pulmonary edema which could be cardiogenic or noncardiogenic in origin. Jacob Schneider MD Assessment and Plan Disease Oriented Problem List: (1) Pneumonia (2) Coronary artery disease (3) Ischemic cardiomyopathy Symptom Scale: (1) Debility 0-10 Scale: Unable to quantify (2) Shortness of breath 0-10 Scale: Unable to quantify Comment: Increased work of breathing, desturated overnight and now on a partial non-rebreather . . (3) Pain 0-10 Scale: 5 (Patient has a hx of rheumatoid arthritis. Pain level at rest 4-5 /10.) Comment: Chronic arthritic pain . Exacerbated with movement. . Pertinent Non-Medical Issues Psychosocial:Patient was born in [place], [place]. He moved to [place] 10 years ago. Patient has been twice. He`s currently to his Vicky Mcgraw of 20 years. Patient has 2 biological sons and 1 step-son. Patient graduated from college with a Business administration degree. Patient has worked for [employer] in [place]. He is now retired. Spiritual: Patient is Mosque Legal: Patient has DPOA, HCS, and HCS signed and on EMR Ethical issues impacting care:None identified at this time. Important Contacts - Vicky Mcgraw [phone] home; [phone] other /work Son- Blake Mcgraw- [phone] . Prognosis Mr. Mcgraw is a 66 years old male with a past medical history of ischemic cardiomyopathy, cardiac arrest, CHF, AICD,pacemaker, rheumatoid arthritis, GERD , CAD with stenting, factor V Leiden deficiency. Patient had a cardiac cath 2 months ago which revealed and EF of 15%. Patient presented to the ER on complaining of shortness of breath, fever, a productive cough and generalized fatigue for 2 days. Given multiple comorbidities and current ongoing increased symptom burden, patient remains at high risk for further complications and decline. . Code Status: No Code Plan PLAN: Legal decision maker: Patient is able to participate in his own medical decision making. In the event that patient is incapacitated to make his own medical decision, his healthcare surrogate is his Vicky Love and his alternate surrogate is his son Blake Mcgraw. Goals: 12/21/2016- Community DNR signed. Meeting with hospice today. Patient and his ready to sign up for hospice. Discussed management of symptoms at hospice care center since patient is having increased work of breathing and getting more dyspneic requiring more O2. Patient`s agreeable with transferring patient to a care center if possible. CODE STATUS: DNR SYMPTOMS: * Shortness of breath: Patient c/o increased shortness breath. Dyspneic with conversation. Patient now on a partial non-rebreather, increased work of breathing. Now on Furosemide, was given Morphine Sulfate and Lorazepam 0.5 [id number] last night. Patient on Duonebs q 4 hours. Patient may need home oxygen at home. * Pain: Patient has a history rheumatoid arthritis. c/o neuropathic pain to his lower extremities. Patient continues to c/o pain to joints which is exacerbated with movement. Patient verbalizing that his pain is exacerbated with activity. Patient on Lyrica 50mg TID, Plaquenil 200mg BID and will be started on Hydromorphone 0.75 to 1 mg * Debility: Multifactorial. Patient has been progressively declining over the past couple months. Has had increased fatigue, spends more time sleeping during the day. Patient requires assistance with ADLs like bathing sometimes. Gets dyspneic with activity. Patient will most likely continue to physically decline. PT following. Palliative care will continue to follow the patient during hospital course as condition evolves, to assist patient/decision-maker with understanding of their medical conditions, weighing benefits/burdens of treatment options, for clarification of goals of treatment. Additionally will assist with any symptoms of palliative concern. . Attestation To help prompt me to consider important information that might be impacting today's encounter and assessment, information from prior notes written by myself or my colleagues may have been "brought forward" into today's note. My signature on this note, however, is an attestation that I personally performed the exam, history, and/or decision-making noted today, and, unless otherwise indicated, the interactions with patient, family, and staff as well as the review of records all occurred today. I also attest that the listed assessment and stated plan reflect my best clinical judgment today based on the combination of historical information, prior notes, and today's exam/ interactions. When time spent is documented, it refers only to time spent today by the signer, or if indicated, combined time spent today by collaborating physician/nurse practitioner. . Nik Barker Dec 21, 2016 13:51
[2016-12-21] MEDS ORDERED: POTASSIUM CHLORIDE 20 MEQ CONTROLLED RELEASE TAB PO SCH (21:00)
== END 2016-12-21 15:40 | disposition hospice, inpatient (51) | DRG 871 ==
LOC: NEPE 15:56 → NEDA 18:12 → N04A 19:26
PROVIDERS: ADMIT Hospitalist; ATTEND Hospitalist
DX: A41.9 Sepsis, unspecified organism (principal); I50.23 Acute on chronic systolic (congestive) heart failure; J96.91 Respiratory failure, unspecified with hypoxia; N17.9 Acute kidney failure, unspecified; J18.9 Pneumonia, unspecified organism; I48.91 Unspecified atrial fibrillation; I11.0 Hypertensive heart disease with heart failure; D68.2 Hereditary deficiency of other clotting factors; J44.0 Chronic obstructive pulmonary disease with (acute) lower respiratory infection; R65.20 Severe sepsis without septic shock; Z95.810 Presence of automatic (implantable) cardiac defibrillator; I25.5 Ischemic cardiomyopathy; I25.10 Atherosclerotic heart disease of native coronary artery without angina pectoris; Z95.5 Presence of coronary angioplasty implant and graft; I25.2 Old myocardial infarction; M06.9 Rheumatoid arthritis, unspecified; Z79.52 Long term (current) use of systemic steroids; Z79.899 Other long term (current) drug therapy; Z86.711 Personal history of pulmonary embolism; Z79.01 Long term (current) use of anticoagulants; K21.9 Gastro-esophageal reflux disease without esophagitis; R29.6 Repeated falls; Z66 Do not resuscitate; Z51.5 Encounter for palliative care; Z96.641 Presence of right artificial hip joint; Z23 Encounter for immunization
CPT/HCPCS: 70450; 71010; 80048; 80053; 80162; 82550; 83605; 83880; 84484; 85007; 85027; 85610; 85730; 87040; 87804; 90686; 93005; 94150; 94620; 94640; 94664; 96365; 96375; J0456; J0696; J1170; J1940; J2270; J2405; J7030; J7050; J7512; Q2038